=== PATIENT | male | born 1965 | race Two or more races ===

== ENCOUNTER 2024-09-30 14:00 | Emergency (ER) | payer MEDICAID, SELFPAY ==
[2024-09-30 14:28] VITALS: BP 116/79; PULSE 88; RESP 18; TEMP 36.8; O2SAT 100
--- NOTE | 2024-09-30 15:35 | PD.EDRME ---
Rapid Medical Screening Exam [facility] Arrival date/time: 09/30/24 14:00 Chief Complaint: Ankle/Foot Injury Vital signs: Vital Signs Temperature 98.2 F 09/30/24 14:28 Pulse Rate 88 09/30/24 14:28 Respiratory Rate 18 09/30/24 14:28 Blood Pressure 116/79 09/30/24 14:28 Pulse Oximetry (%) 100 09/30/24 14:28 Oxygen Delivery Method Room Air 09/30/24 14:28 RME Narrative: 58-year-old male patient presents emergency department with complaint of bilateral lower leg pain. Patient also states that he started having unintended weight loss a month ago he states he is lost about 6 pounds in the last month. Patient has a history of 15 years diabetes history and is currently on insulin. Last hemoglobin A1c was about 11. He denies checking his blood sugar daily. Patient is ill-appearing but afebrile and nontoxic-appearing. On physical exam there is moderate swelling to patient's right medial knee compared to the left. Patient ambulates with cane.
--- NOTE | 2024-09-30 15:40 | XR_ITS ---
Examination: Knee, 9 right , 3 views Technique: Knee AP, lateral, oblique 3 views Date and time of exam: September 30, 2024 1608 hrs. Indications: Right knee pain this week Findings: Mild osteopenia Advanced narrowing medial joint space right knee Significant osteoarthritis patellofemoral joint No fracture Impression: Advanced narrowing medial joint space right knee Significant osteoarthritis patellofemoral joint
[2024-09-30] MEDS: KETOROLAC INJ 60 MG/2 ML VIAL 30 MG IM (16:02)
[2024-09-30 16:06] LABS: Lactate (Lactic Acid) 1.3 mMol/L (0.4-2.0)
[2024-09-30 16:13] LABS: Basophils % (Auto) 0 % (0-2.5); Eosinophils % (Auto) 0 % (0-10); Hematocrit 36.8 % (41.0-53.0); Hemoglobin 13.9 g/dL (13.5-16.0); Immature Granulocytes % (Auto) 0 % (0-0); Immature Granulocytes Auto 0.02 Thou/mm3 (0.00-0.00); Lymphocytes # (Auto) 1.2 Thou/mm3 (1.0-4.8); Lymphocytes % (Auto) 12 % (10-50); Mean Corpuscular HGB Conc 37.8 g/dl (31.0-37.0); Mean Corpuscular Hemoglobin 29.8 pg (25.0-35.0); Mean Corpuscular Volume 79 fL (80-100); Monocytes # (Auto) 0.4 Thou/mm3 (0.0-0.8); Monocytes % (Auto) 4 % (0-12); Neutrophils # (Auto) 8.3 Thou/mm3 (1.8-7.7); Neutrophils % (Auto) 84 % (37-80); Nucleated Red Blood Cell % 0 /100 WBC (0); Platelet Count 339 Thou/mm3 (140-440); RDW Standard Deviation 35.9 fL (35.1-43.9); Red Blood Count 4.67 Miln/mm3 (4.50-5.90)
[2024-09-30 16:36] LABS: Alanine Aminotransferase 15 U/L (10-49); Albumin, Serum 4.6 gm/dL (3.5-5.0); Albumin/Globulin Ratio 1.8 (1.2-2.2); Alkaline Phosphatase 59 U/L (46-116); Anion Gap 7 (7-16); Aspartate Amino Transferase 10 U/L (0-34); BUN/Creatinine Ratio 29 Ratio (12-20); Bilirubin,Total 1.4 mg/dL (0.3-1.2); Blood Urea Nitrogen 20 mg/dL (9-23); Calcium 9.5 mg/dL (8.3-10.6); Calcium (Corrected) 9.5 mg/dL (8.5-10.1); Chloride 91 mMol/L (98-107); Creatinine (Component) 0.7 mg/dL (0.6-1.3); Globulin 2.6 gm/dL (2.3-3.5); Glucose 199 mg/dL (74-106); Osmolality,Calculated 261 (275-295); Potassium 4.6 mMol/L (3.4-5.1); Sodium 126 mMol/L (136-145); Total Protein 7.2 gm/dL (5.7-8.2); eGFR > 60 See Note
[2024-09-30 16:58] LABS: Sed Rate (ESR) 3 mm/hr (0-20)
[2024-09-30] MEDS: MORPHINE SULF INJ 10 MG/ML VIAL 4 MG IM (17:25)
--- NOTE | 2024-09-30 19:26 | XR_ITS ---
Examination: CT abdomen with intravenous contrast CT pelvis with intravenous contrast 2-D coronal reconstructions 2-D sagittal reconstructions Date and time of exam:September 30, 2024 2051 hrs. Indications: Right-sided abdominal pain beginning 2 days ago Comparison: August 08, 2015. CTDI: vol (mGy) 4.8 DLP: (mGycm) 263 Technique: Multiple axial sections of the abdomen and pelvis have been obtained. 64 slice high-resolution scanner used. 3 mm axial sections have been obtained, post intravenous injection 60 cc Isovue-370 2-D sagittal, coronal reconstructions obtained. Low dose protocols were performed. One or more of the following dose reduction techniques were used; automated exposure control, adjustment of the mA and/or KV according to patient size, use of iterative reconstruction technique. Findings: Small liver cysts No gallstones No pancreatic splenic or adrenal mass No hydronephrosis renal or ureteral calculi Large amounts of stool in the colon No pericecal inflammatory change No bowel obstruction or diverticulitis Intact urinary bladder Transverse prostate dimension 5 cm Prominent osteopenia Grade 1 spondylolisthesis L5 on S1 with advanced degenerative disc disease L5-S1 Impression: Large amounts of stool throughout the colon, no obstruction No CT findings of appendicitis or diverticulitis
--- NOTE | 2024-09-30 19:28 | EDNOTE_ITS ---
Lower Extremity Injury RME/HPI General Chief Complaint: Ankle/Foot Injury Stated Complaint: RIGHT FOOT PAIN FROM DIABETIC WOUND Time Seen by Provider: 09/30/24 20:10 Source: patient Arrival date/time: 09/30/24 14:00 Mode of arrival: ambulatory Limitations: no limitations RME / HPI RME / HPI Narrative: --- DR. ZULUAGA MAIN ED EVALUATION: 58-year-old male patient presents to the emergency department with complaint of bilateral lower leg pain. Patient also states he started having unintended weight loss about a month ago--he notes he has lost about 6 pounds in the last month. Patient reports 15 years of diabetic history and is currently on insulin. Last hemoglobin A1C was about 11. He denies checking his blood sugar daily. Patient ambulates with cane. Related Data Previous Rx's ?Medication ?Instructions ?Recorded megestrol 800 mg/20 mL (20 mL) 800 mg (20 mL) PO QDAY 30 days 09/30/24 oral suspension #600 mL Allergies Allergy/AdvReac Type Severity Reaction Status Date / Time No Known Allergies Allergy Verified 09/30/24 14:02 Review of Systems Review of Systems Systems Reviewed: All systems reviewed, normal except as documented Past Medical History Past Medical History CARDIAC: Negative Cardiac Disorders RESPIRATORY: Negative Asthma GENITOURINARY: Negative Renal Disease ENDOCRINE: Positive Diabetes Mellitus Type 2 HEMATOLOGIC: Negative Sickle Cell Disease Social History SMOKING STATUS: Light (< 1 pack/day) ED Exam Narrative Physical exam: Patient is ill-appearing but afebrile and nontoxic-appearing. There is moderate swelling to patient's right medial knee compared to the left. Patient ambulates with cane. General Limitations: Present no limitations General appearance: Present alert Head Head exam: Present atraumatic Eye Eye exam: Present normal appearance and EOMI; Absent scleral icterus ENT ENT exam: Present normal exam, normal oropharynx and mucous membranes dry Neck Neck exam: Present normal inspection, full ROM and trachea midline Chest Chest inspection: Present normal inspection and symmetric chest wall rise Respiratory Respiratory exam: Present normal lung sounds bilaterally Cardiovascular Cardiovascular exam: Present regular rate, normal rhythm and normal heart sounds Abdominal Exam Abdominal exam: Present soft, normal bowel sounds and other (Scaphoid); Absent distention, tenderness or guarding Extremities Exam Extremities exam: Present normal inspection and full ROM Back Exam Back exam: Present normal inspection and full ROM Neurological Exam Neurological exam: Present alert, oriented X3 and CN II-XII intact Psychiatric Psychiatric exam: Present normal affect and normal mood Skin Skin exam: Present warm, dry, intact and normal color Course Course Course Narrative: Please increase in room to get IV for CT scan Quality Measures none Orders Category Date Time Status CT Screening NOW Care 09/30/24 19:[address] abdomen pelvis w con Stat Exams 09/30/24 19:26 Completed XR knee RT 3V Stat Exams 09/30/24 15:40 Completed Blood Culture (Lab) Stat Lab 09/30/24 15:59 Received CBC [CBC] Stat Lab 09/30/24 15:52 Completed CMP [Comprehensive Metabolic Panel] Stat Lab 09/30/24 15:52 Completed Free T4 (Free Thyroxine) Stat Lab 09/30/24 15:52 Completed Lactic Acid [Lactate (Lactic Acid)] Stat Lab 09/30/24 15:59 Completed Sed Rate (ESR) Stat Lab 09/30/24 15:52 Completed Thyroid Stimulating Hormone Stat Lab 09/30/24 15:52 Completed Urinalysis Stat Lab 09/30/24 19:50 Completed Ketorolac Inj [Toradol Inj] Med 09/30/24 15:38 Discontinued 30 mg IM X1 ONE Morphine Inj Med 09/30/24 15:38 Discontinued 4 mg IM X1 ONE Reevaluation(s) Reevaluation #1: Systolic blood pressure normal Vital Signs Vital signs: Vital Signs Temperature 98.2 F 09/30/24 14:28 Pulse Rate 88 09/30/24 14:28 Respiratory Rate 18 09/30/24 14:28 Blood Pressure 116/79 09/30/24 14:28 Pulse Oximetry (%) 100 09/30/24 14:28 Oxygen Delivery Method Room Air 09/30/24 14:28 Extremity Injury, Lower MDM Narrative MDM Narrative:: ? Scribe Attestation: Tera Ocampo, am scribing for and in the presence of Dr. Villalobos. Patient with obvious weight loss without CT scan showing mass or reason for weight loss. X-ray is consistent with osteoarthritis which is old. Patient will be started on Megace to help with his appetite. [facility] Provider Notation: Although this document has been carefully reviewed, there may still be some phonetic and other typographical errors. These errors are purely grammatical due to imperfections in the software program and should not be construed in any way to compromise the substance of the patient's medical care during this visit. Patient data External records reviewed:: [facility] previous records Clinical information provided by:: patient Social determinants that could affect healthcare access:: none Patient has the following chronic illnesses:: DM2 How is presenting disease/condition affected by chronic disease/condition?: exacerbated by (Diabetes) Evaluation data The following diagnostics were reviewed and interpreted by me:: lab results and radiology exam(s) Lab and/or radiology exams considered but not ordered:: White count is 10 Interpretation Summary: No anemia, thrombocytopenia, or leukocytosis, sodium is slightly decreased at 126 which likely is from slightly elevated glucose. Normal lactic acid essentially normal T4. Examination: Knee, 9 right , 3 views Technique: Knee AP, lateral, oblique 3 views Date and time of exam: September 30, 2024 1608 hrs. Indications: Right knee pain this week Findings: Mild osteopenia Advanced narrowing medial joint space right knee Significant osteoarthritis patellofemoral joint No fracture Impression: Advanced narrowing medial joint space right knee Significant osteoarthritis patellofemoral joint Examination: CT abdomen with intravenous contrast CT pelvis with intravenous contrast 2-D coronal reconstructions 2-D sagittal reconstructions Date and time of exam:September 30, 2024 2051 hrs. Indications: Right-sided abdominal pain beginning 2 days ago Comparison: August 08, 2015. Findings: Small liver cysts No gallstones No pancreatic splenic or adrenal mass No hydronephrosis renal or ureteral calculi Large amounts of stool in the colon No pericecal inflammatory change No bowel obstruction or diverticulitis Intact urinary bladder Transverse prostate dimension 5 cm Prominent osteopenia Grade 1 spondylolisthesis L5 on S1 with advanced degenerative disc disease L5-S1 Impression: Large amounts of stool throughout the colon, no obstruction No CT findings of appendicitis or diverticulitis Dictated By: Pravin Bennett MD Medications / Prescriptions Medications or Prescriptions considered but not ordered:: none Medication administrations:: Medication Administration History Discontinued Medications Ketorolac Tromethamine (Ketorolac Inj 60 Mg/2 Ml Vial) 30 mg IM X1 ONE Stop: 09/30/24 15:39 Last Admin: 09/30/24 16:02 Dose: 30 mg Documented By: OA Morphine Sulfate (Morphine Sulf Inj 10 Mg/Ml Vial) 4 mg IM X1 ONE Stop: 09/30/24 15:39 Last Admin: 09/30/24 17:25 Dose: 4 mg Documented By: RD as above, if any Consultations Consultation(s) initiated? (list below): No Diagnosis Extremity Injury, Lower Differential Diagnosis: acute internal derangement of knee and other (Gout, doubt septic joint, cancer, electrolyte abnormality, dehydration) Most likely diagnosis given after review of the tests above:: Osteoarthritis, Recent weight loss Admission Indicated Admission indicated?: not indicated Admission Request Was there a request for admission?: No Disposition Plan Disposition Plan: Discharge Discharge Attestation Discharge Attestation: The patient and all family members were given an opportunity to ask questions and understood the discharge instructions. Discharge instructions specifically effects, indications for sooner follow up or return to the emergency department, and the expected course of current diagnosis. Patient condition: Stable Discharge Plan Plan Patient Disposition: HOME (Self Care) Patient condition on transfer: Stable Prescriptions/Referrals Prescriptions/Med Rec: New megestrol 800 mg/20 mL (20 mL) suspension 800 mg PO QDAY 30 Days Qty: 600 1RF Referrals: Didi Atwood [Primary Care Provider] - In 1 week Problem List Clinical Impression: Osteoarthritis, Recent weight loss Patient/Caregiver Discharge Instructions Education Materials: ED Osteoarthritis Additional Instructions: Please take the Megace to help you with your appetite. Return to the emergency department for any worsening symptoms or any other concerns. Today your CT scan does not show that you have cancer and or a mass or anything that explains your weight loss. Was a pleasure meeting you today. Return to emergency department for worsening symptoms or any other concerns Print Language: [place] Stand Alone Forms: [employer] Patient Portal Info Letter
[2024-09-30 19:52] LABS: Free T4 (Free Thyroxine) 1.86 ng/dL (0.89-1.76); Thyroid Stimulating Hormone 2.02 uIU/mL (0.55-4.78)
[2024-09-30 20:03] LABS: Collection Type, Urine Voided; Squamous Epithelial Cell,Urine 0 /hpf (0-5)
[2024-09-30 20:10] LABS: Bilirubin,Urine Negative (Negative); Blood,Urine Negative (Negative); Clarity,Urine Clear (Clear/Hazy); Color,Urine Yellow (Lt Yel-Yel); Glucose, Urine 3+ (Negative); Ketones,Urine Trace (Negative); Leukocyte Esterase,Urine Negative (Negative); Nitrite,Urine Negative (Negative); PH,Urine 6.5 (5.0-7.0); Protein,Urine Negative (Neg - Trace); RBC,Urine < 1 /hpf (0-3); Specific Gravity,Urine 1.022 (1.001-1.035); Urobilinogen,Urine Negative mg/dL (0.0-1.0); WBC,Urine < 1 /hpf (0-5)
== END 2024-09-30 23:27 | disposition home or self-care (01) ==
PROVIDERS: Physician Assistant; Emergency Provider Emergency Medicine; PCP Physician Assistant
DX: M17.11 Unilateral primary osteoarthritis, right knee (principal); E11.9 Type 2 diabetes mellitus without complications
CPT/HCPCS: 36415; 73562; 74177; 80053; 81001; 83605; 84439; 84443; 85025; 85652; 87040; 96372; 99285; A4649; J1885; J2270; Q9967

== ENCOUNTER 2024-10-18 22:05 | Inpatient (IN) | payer MEDICAID, SELFPAY ==
--- NOTE | 2024-10-18 22:34 | XR_ITS ---
Examination: CTA carotids with intravenous contrast CTA brain, head with intravenous contrast. 2-D sagittal, coronal reconstructions. 3-D reconstructions. Exam date and time: October 18, 2024 1049 hrs. Indications: Stroke alert, onset right-sided body weakness beginning 6 hours ago CTDI: vol (mGy) 19.58 DLP: (mGycm) 503 Technique: Multiple CTA axial brain, head carotid images post intravenous contrast injection 75 cc, Isovue-370. 2-D sagittal, coronal reconstructions. 3-D reconstructions, 3-D post processing including vascular maximum intensity projection images. Low dose protocols were performed. One or more of the following dose reduction techniques were used; automated exposure control, adjustment of the mA and/or KV according to patient size, use of iterative reconstruction technique. 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
--- NOTE | 2024-10-18 22:34 | XR_ITS ---
Examination: CT brain head without contrast. 2-D sagittal coronal reconstructions Date and time of exam:October 18, 2024 1042 hrs. Indications: Stroke alert, onset right-sided body weakness dizziness beginning 6 hours ago CTDI: vol (mGy):49.20 DLP: (mGycm):1051 Technique: Multiple CT axial sections of the brain have been obtained, 5 mm slice thickness. Contrast has not been administered. 2-D sagittal, coronal reconstructions have been obtained Low dose protocols were performed. One or more of the following dose reduction techniques were used; automated exposure control, adjustment of the mA and/or KV according to patient size, use of iterative reconstruction technique. Findings: No significant ventricular enlargement. Intra-axial or extra-axial hemorrhage density is not seen. No mass effect or midline shift Basal cisterns are not remarkable. Fourth ventricle is midline. Cranial vault intact. Impression: Negative for acute hemorrhage, mass effect or midline shift As clinically warranted, brain MRI follow-up would best assess for demyelinating disease, acute ischemic change
--- NOTE | 2024-10-18 22:35 | PD.EDRME ---
Rapid Medical Screening Exam RME Arrival date/time: 10/18/24 22:05 58-year-old male with a history of hypertension presents to the emergency room with a chief complaint of slurred speech, right sided numbness and deficits, right-sided facial droop that began today at 3 PM. I have greeted and performed a focused initial assessment of this patient. A comprehensive ED assessment and evaluation of the patient, analysis of all test results, and completion of the medical decision making process will be conducted by additional ED providers. Chief Complaint: Dizziness Vital signs reviewed by provider: Yes
--- NOTE | 2024-10-18 22:37 | PC.NURSE ---
stroke consult Case # [id number]
--- NOTE | 2024-10-18 22:38 | EDNOTE_ITS ---
ED Dizzyness RME/HPI General Chief Complaint: Dizziness Stated Complaint: Weakness/dizzyness Time Seen by Provider: 10/18/24 22:38 Arrival date/time: 10/18/24 22:05 Limitations: no limitations RME / HPI RME / HPI Narrative: 10/18/24 22:05 58-year-old male with a history of hypertension presents to the emergency room with a chief complaint of slurred speech, right sided numbness and deficits, right-sided facial droop that began today at 3 PM. I have greeted and performed a focused initial assessment of this patient. A comprehensive ED assessment and evaluation of the patient, analysis of all test results, and completion of the medical decision making process will be conducted by additional ED providers. ------ Dr. Bustillos's Main ED Evaluation: 58-year-old male with history of type 2 diabetes and 6 pound weight loss presenting to the emergency department with slurred speech and dizziness that started at 3 PM. The patient has chronic osteoarthritis of the right knee and has been having generalized weakness in his right lower extremity for the last year and a half. The states that last normal was 3 PM. No weakness in the right lower extremity is not any different than previous. Related Data Previous Rx's ?Medication ?Instructions ?Recorded megestrol 800 mg/20 mL (20 mL) 800 mg (20 mL) PO QDAY 30 days 09/30/24 oral suspension #600 mL Allergies Allergy/AdvReac Type Severity Reaction Status Date / Time No Known Allergies Allergy Verified 09/30/24 14:02 Review of Systems Review of Systems Systems Reviewed: All systems reviewed, normal except as documented Past Medical History Past Medical History CARDIAC: Negative Cardiac Disorders RESPIRATORY: Negative Asthma GENITOURINARY: Negative Renal Disease ENDOCRINE: Positive Diabetes Mellitus Type 2 HEMATOLOGIC: Negative Sickle Cell Disease Social History SMOKING STATUS: Former smoker ED Exam General Limitations: Present no limitations General appearance: Present alert and in no apparent distress Head Head exam: Present atraumatic Eye Eye exam: Present normal appearance, PERRL and EOMI ENT ENT exam: Present normal exam, normal oropharynx and mucous membranes moist Neck Neck exam: Present normal inspection, full ROM and trachea midline Chest Chest inspection: Present normal inspection and symmetric chest wall rise Respiratory Respiratory exam: Present normal lung sounds bilaterally Cardiovascular Cardiovascular exam: Present regular rate, normal rhythm and normal heart sounds Abdominal Exam Abdominal exam: Present soft and normal bowel sounds Extremities Exam Extremities exam: Present normal inspection and full ROM Back Exam Back exam: Present normal inspection and full ROM Neurological Exam Neurological exam: Present alert, oriented X3 and CN II-XII intact Psychiatric Psychiatric exam: Present normal affect and normal mood Skin Skin exam: Present warm, dry, intact and normal color Course Course Course Narrative: Telemetry neuro specialist at the bedside. At this time he does not feel the patient is having a stroke. Reports head CT is negative for acute bleed and/or acute finding. Fingerstick here in the emergency department is 232. Blood pressure 155/73 with a heart rate of 84. Quality Measures none Orders Category Date Time Status Bedside Blood Glucose NOW Care 10/18/24 22:34 Active Statistical Reporting Analyst NOW Care 10/18/24 22:34 Active Continuous Pulse Oximetry NOW Care 10/18/24 22:34 Completed EKG (ED ONLY) *Do not use* NOW Care 10/18/24 22:34 Completed Insert IV NOW Care 10/18/24 22:34 Active NIH Stroke Scale now Care 10/18/24 22:34 Active NPO NOW Care 10/18/24 22:34 Active Nurse Swallow Screen x1 Care 10/18/24 22:34 Active Consult to Neurology / Tele-Neurology Routine Cons 10/18/24 22:[address] angio stroke protocol Stat Exams 10/18/24 22:[address] stroke protocol Stat Exams 10/18/24 22:34 Completed EKG (ED Only) Stat Exams 10/18/24 22:34 Ordered CBC Stat Lab 10/18/24 22:39 Completed Comprehensive Metabolic Panel Stat Lab 10/18/24 22:39 Completed Drug Screen,Urine Stat Lab 10/19/24 00:04 Completed Magnesium Stat Lab 10/18/24 22:39 Completed Partial Thromboplastin Time Stat Lab 10/18/24 22:39 Completed Prothrombin Time with INR Stat Lab 10/18/24 22:39 Completed Troponin I Stat Lab 10/18/24 22:39 Completed Urinalysis Stat Lab 10/19/24 00:04 Completed Urine Culture Stat Lab 10/19/24 00:04 Received Sodium Chloride 0.9% 500 ml [Ns] 500 ml Med 10/19/24 00:05 Discontinued IV 999 mls/hr Vital Signs Vital signs: Vital Signs Temperature 98 F 10/18/24 22:43 Pulse Rate 99 10/18/24 22:43 Respiratory Rate 18 10/18/24 22:43 Blood Pressure 93/58 L 10/18/24 22:43 Pulse Oximetry (%) 99 10/18/24 22:43 Oxygen Delivery Method Room Air 10/18/24 22:43 Pulse ox is 99% on room air, which is normal according to my interpretation. Dizziness MDM Narrative MDM Narrative:: Differential diagnosis includes TIA, stroke, mass, electrolyte abnormality, exacerbation of his diabetes, occult bacteremia,. Patient data External records reviewed:: [facility] previous records (Per chart review, patient has no relevant previous ED visits.) Clinical information provided by:: patient Social determinants that could affect healthcare access:: none Patient has the following chronic illnesses:: DM How is presenting disease/condition affected by chronic disease/condition?: uneffected by Evaluation data The following diagnostics were reviewed and interpreted by me:: lab results and radiology exam(s) Lab and/or radiology exams considered but not ordered:: none Interpretation Summary: CBC is normal, Sodium is low at 118, Chloride is low at 88, troponin is within normal limits, UA is concentrated, according to my interpretation. ------ [facility] Report Signed Patient: TITI FOX Record#: [id number] Birthdate: 1965 Age/Sex: 58 / M Location: [facility] Attending Dr: Ordering Physician: Ben Antonio Date of Service: 10/18/24 Procedure(s): CT stroke protocol Accession Number(s): [id number] cc: Ben Antonio; Pravin Bennett MD~ Examination: CT brain head without contrast. 2-D sagittal coronal reconstructions Date and time of exam:October 18, 2024 1042 hrs. Indications: Stroke alert, onset right-sided body weakness dizziness beginning 6 hours ago CTDI: vol (mGy):49.20 DLP: (mGycm):1051 Technique: Multiple CT axial sections of the brain have been obtained, 5 mm slice thickness. Contrast has not been administered. 2-D sagittal, coronal reconstructions have been obtained Low dose protocols were performed. One or more of the following dose reduction techniques were used; automated exposure control, adjustment of the mA and/or KV according to patient size, use of iterative reconstruction technique. Findings: No significant ventricular enlargement. Intra-axial or extra-axial hemorrhage density is not seen. No mass effect or midline shift Basal cisterns are not remarkable. Fourth ventricle is midline. Cranial vault intact. Impression: Negative for acute hemorrhage, mass effect or midline shift As clinically warranted, brain MRI follow-up would best assess for demyelinating disease, acute ischemic change Dictated By: Pravin Bennett MD Signed By: <Electronically signed by Pravin Bennett MD in OV> 10/18/24 2249 ------ [facility] Report Signed Patient: TITI FOX Record#: [id number] Birthdate: 1965 Age/Sex: 58 / M Location: [facility] Attending Dr: Ordering Physician: Ben Antonio Date of Service: 10/18/24 Procedure(s): CT angio stroke protocol Accession Number(s): [id number] cc: Ben Antonio; Pravin Bennett MD~ Examination: CTA carotids with intravenous contrast CTA brain, head with intravenous contrast. 2-D sagittal, coronal reconstructions. 3-D reconstructions. Exam date and time: October 18, 2024 1049 hrs. Indications: Stroke alert, onset right-sided body weakness beginning 6 hours ago CTDI: vol (mGy) 19.58 DLP: (mGycm) 503 Technique: Multiple CTA axial brain, head carotid images post intravenous contrast injection 75 cc, [id number]. 2-D sagittal, coronal reconstructions. 3-D reconstructions, 3-D post processing including vascular maximum intensity projection images. Low dose protocols were performed. One or more of the following dose reduction techniques were used; automated exposure control, adjustment of the mA and/or KV according to patient size, use of iterative reconstruction technique. 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 Dictated By: Pravin Bennett MD Signed By: <Electronically signed by Pravin Bennett MD in OV> 10/18/24 3883 Medications / Prescriptions Medications or Prescriptions considered but not ordered:: none Medication administrations:: Medication Administration History Acetaminophen (Acetaminophen 325 Mg Tablet) 650 mg PO Q6H PRN PRN Reason: Fever >100.3 or pain Stop: 11/18/24 02:20 Hydrocodone Bitart/Acetaminophen (Hydrocodone/Apap 5/325 Tablet) 1 tab PO Q4HR PRN PRN Reason: PAIN SCALE 4-10(Mod-Sev Stop: 10/24/24 02:20 Albuterol/Ipratropium (Albuterol/Ipratropium (Duoneb) Rt Noemi 3 Ml Nebu) 3 ml INH Q2HR PRN PRN Reason: SHORTNESS OF BREATH OR WHEEZE Stop: 11/18/24 02:20 Dextrose (Dextrose 50%-Water Inj 50 Ml Syringe) 50 ml IV Q15MIN PRN PRN Reason: BG <50 OR BG <70 & pt unresponsive Stop: 11/18/24 02:28 Glucagon (Glucagon Inj 1 Mg Vial) 1 mg IM Q15MIN PRN PRN Reason: BG <70, and no IV access Heparin Sodium (Porcine) (Heparin Sod Inj 5000 Unit/Ml Vial) 5,000 unit SC BID MEDINA Stop: 11/02/24 02:29 Insulin Human Lispro (Insulin Lispro (Admelog) 1 Unit/0.01 Ml Unit) 0 unit SC ACHS MEDINA; Protocol Stop: 11/18/24 07:29 Ondansetron HCl (Ondansetron Inj 2 Mg/Ml Inj 2 Ml) 4 mg IV Q6H PRN; Protocol PRN Reason: NAUSEA OR VOMITING Stop: 11/18/24 02:20 Discontinued Medications Sodium Chloride (Ns) 500 mls @ 999 mls/hr IV .Q31M ONE Stop: 10/19/24 00:35 Last Infusion: 10/19/24 00:52 Dose: Infused Documented By: Admin: 10/19/24 00:21 Dose: 999 mls/hr Documented By: EF see above Consultations Consultation(s) initiated? (list below): Yes Consultation #1 (Physician, Specialty, Details): Discussed case with [Dr. Yepez] from [teleneurology] regarding [consultation]. Discussed patients ED course, exam findings, labs, and radiology results. Does not feel the patient is having a stroke at this time and does not recommend tPA. He does not recommend any further stroke work-up. Time: 23:10 Consultation #2 (Physician, Specialty, Details): Discussed case with [Dr. Buchanan] from Hospitalist service regarding admission. Discussed patients ED course, exam findings, labs, and radiology results. The Hospitalist [agrees] to accept the patient for admission. Time: 01:50 Diagnosis Dizziness Differential Diagnosis: cerebrovascular accident and other (TIA, mass, electrolyte abnormality, exacerbation of DM, occult bacteremia) Most likely diagnosis given after review of the tests above:: see below Admission Indicated Admission indicated?: indicated Admission Request Was there a request for admission?: Yes Admission Attestation Admission request attestation: Discussed case with [] from Hospitalist service regarding admission. Discussed patients ED course, exam findings, labs, and radiology results. The Hospitalist [agrees,declines] to accept the patient for admission. Disposition Plan Disposition Plan: Admit Critical Care Time Critical Care Time Critical Care Time: Yes Total Critical Care Time (min.): 45 Attestation: The high probability of sudden, clinically significant deterioration in the patient?s condition required the highest level of my preparedness to intervene urgently. The services I provided to this patient were to treat and/or prevent clinically significant deterioration. Services included the following: chart data review, reviewing nursing notes and/or old charts, documentation time, virtualization consultant collaboration regarding findings and treatment options, medication orders and management, direct patient care, vital sign assessments and ordering, interpreting and reviewing diagnostic studies and lab tests. Aggregate critical care time includes only time during which I was engaged in work directly related to the patient?s care, as described above, whether at bedside or elsewhere in the Emergency Department. It did not include time spent performing other reported procedures or the services of residents, students, nurses or physician assistants. Discharge Plan Plan Patient Disposition: Admit Acute Care w/in Hospital Patient condition on transfer: Stable Problem List Clinical Impression: Acute hyponatremia, Dizziness, History of diabetes mellitus
[2024-10-18 22:43] VITALS: BP 93/58; PULSE 99; RESP 18; TEMP 36.6; O2SAT 99
[2024-10-18 23:01] LABS: Basophils % (Auto) 0 % (0-2.5); Eosinophils # (Auto) 0.1 Thou/mm3 (0.0-0.5); Eosinophils % (Auto) 1 % (0-10); Hematocrit 34.2 % (41.0-53.0); Hemoglobin 13.3 g/dL (13.5-16.0); Immature Granulocytes % (Auto) 0 % (0-0); Immature Granulocytes Auto 0.01 Thou/mm3 (0.00-0.00); Lymphocytes % (Auto) 26 % (10-50); Mean Corpuscular HGB Conc 38.9 g/dl (31.0-37.0); Mean Corpuscular Hemoglobin 29.8 pg (25.0-35.0); Mean Corpuscular Volume 77 fL (80-100); Monocytes # (Auto) 0.6 Thou/mm3 (0.0-0.8); Monocytes % (Auto) 7 % (0-12); Neutrophils % (Auto) 65 % (37-80); Nucleated Red Blood Cell % 0 /100 WBC (0); Platelet Count 322 Thou/mm3 (140-440); RDW Standard Deviation 34.7 fL (35.1-43.9); Red Blood Count 4.47 Miln/mm3 (4.50-5.90); White Blood Count 7.7 Thou/mm3 (3.8-10.6)
[2024-10-18 23:15] VITALS: PULSE 80
[2024-10-18 23:20] LABS: Partial Thromboplastin Time 27.7 Seconds (22.0-36.0); Prothrombin Time 11.1 Seconds (9.0-12.2)
[2024-10-18 23:24] VITALS: BMI 19.2
[2024-10-18 23:26] LABS: Alanine Aminotransferase 26 U/L (10-49); Albumin, Serum 4.4 gm/dL (3.5-5.0); Albumin/Globulin Ratio 1.8 (1.2-2.2); Alkaline Phosphatase 60 U/L (46-116); Anion Gap 7 (7-16); Aspartate Amino Transferase 16 U/L (0-34); BUN/Creatinine Ratio 20 Ratio (12-20); Bilirubin,Total 1.7 mg/dL (0.3-1.2); Blood Urea Nitrogen 16 mg/dL (9-23); Calcium 9.3 mg/dL (8.3-10.6); Calcium (Corrected) 9.3 mg/dL (8.5-10.1); Carbon Dioxide 23.1 mMol/L (20.0-31.0); Chloride 88 mMol/L (98-107); Creatinine (Component) 0.8 mg/dL (0.6-1.3); Estimated Creatinine Clearance 77.9 mL/min (>60); Globulin 2.4 gm/dL (2.3-3.5); Glucose 211 mg/dL (74-106); Osmolality,Calculated 245 (275-295); Potassium 4.4 mMol/L (3.4-5.1); Total Protein 6.8 gm/dL (5.7-8.2); eGFR > 60 See Note
--- NOTE | 2024-10-18 23:26 | PD.NEUROCONS ---
History of Present Illness Consult Narrative History of present illness: 58yo man with past medical history significant for poorly controlled DM2, HTN, and diabetic neuropathy, who presents today with a few days of lightheadedness that is worse with sitting up or standing, and per , acutely worsened today. Pt denies room spinning sensation and endorses lightheadedness only, and also feels generally weak. He also reports that he has had right leg weakness since July of 2024. cc:: cc: Meds Home Medications and Allergies Allergies Allergy/AdvReac Type Severity Reaction Status Date / Time No Known Allergies Allergy Verified 09/30/24 14:02 Exam - Neurology Vital Signs Temp Pulse Resp BP Pulse Ox O2 Del Method 98 F 80 18 93/58 L 99 Room Air 10/18/24 22:43 10/18/24 23:15 10/18/24 22:43 10/18/24 22:43 10/18/24 22:43 10/18/24 22:43 Narrative Exam Examination: BP(155/73), Pulse(83), Blood Glucose(232) 1A: Level of Consciousness - Alert; keenly responsive + 0 1B: Ask Month and Age - Both Questions Right + 0 1C: Blink Eyes & Squeeze Hands - Performs Both Tasks + 0 2: Test Horizontal Extraocular Movements - Normal + 0 3: Test Visual Nelson - No Visual Loss + 0 4: Test Facial Palsy (Use Grimace if Obtunded) - Normal symmetry + 0 5A: Test Left Arm Motor Drift - No Drift for 10 Seconds + 0 5B: Test Right Arm Motor Drift - No Drift for 10 Seconds + 0 6A: Test Left Leg Motor Drift - No Drift for 5 Seconds + 0 6B: Test Right Leg Motor Drift - Some Effort Against Rainbow + 2 7: Test Limb Ataxia (FNF/Heel-Rao) - No Ataxia + 0 8: Test Sensation - Mild-Moderate Loss: Less Sharp/More Dull + 1 9: Test Language/Aphasia - Normal; No aphasia + 0 10: Test Dysarthria - Normal + 0 11: Test Extinction/Inattention - No abnormality + 0 NIHSS Score: 3 Pre-Morbid Modified Corder Scale: Unable to assess Advanced Imaging: Advanced Imaging Deferred because: Stroke not suspected with clinical presentation and exam Metrics: Last Known Well: Unknown Dispatch Time: 10/18/2024 22:37:09 Arrival Time: 10/18/2024 22:30:00 Initial Response Time: 10/18/2024 22:52:38 Symptoms: dizziness. Initial patient interaction: 10/18/2024 23:05:11 NIHSS Assessment Completed: 10/18/2024 23:14:06 Patient is not a candidate for Thrombolytic. Thrombolytic Medical Decision: 10/18/2024 23:14:08 Patient was not deemed candidate for Thrombolytic because of following reasons: LKW outside 4.5 hr window. . I personally Reviewed the CT Head and it Showed no acute hemorrhage or large evolving infarct. Primary Provider Notified of Diagnostic Impression and Management Plan on: 10/18/2024 23:44:44 Results Labs 10/18/24 22:39 10/18/24 22:39 Assessment & Plan Assessment and plan (1) Dizziness: Status: Acute Assessment and plan: [facility] Patient Name: Horacio Martinez Date of : 1965 Identification Number: Date of Service: 10/18/2024 22:37:09 Diagnosis: ? Presyncope Impression: ? 58M, pmh sig for poorly controlled DM2, HTN, diabetic neuropathy with chronic RLE weakness, presenting with positional presyncope and generalized weakness; no c/f acute stroke at this time. No TNK given LKW>4.5hr. No c/f LVO. Recommendations: ? No further neurodiagnostic stroke work-up indicated Spoke with : Dr. Bustillos This consult was conducted in real time using interactive audio and video technology. Patient was informed of the technology being used for this visit and agreed to proceed. Patient located in hospital and provider located at home/office setting. Patient is being evaluated for possible acute neurologic impairment and high probability of imminent or life-threatening deterioration. I spent total of 45 minutes providing care to this patient, including time for face to face visit via telemedicine, review of medical records, imaging studies and discussion of findings with providers, the patient and/or family. Dr Doyle Yepez [facility] For Inpatient follow-up with [facility] physician please call [facility] at . As we are not an outpatient service for any post hospital discharge needs please contact the hospital for assistance. If you have any questions for the [facility] physicians or need to reconsult for clinical or diagnostic changes please contact us via [facility] at .
[2024-10-18 23:59] LABS: Troponin I < 0.020 ng/mL (0.0-0.045)
[2024-10-19] VITALS (16 sets, daily range): BP systolic 84–153; BP diastolic 50–92; PULSE 74–101; RESP 15–100; TEMP 36.7–37.1; O2SAT 96–100
[2024-10-19] LABS: Sodium 118 mMol/L (136-145)
--- NOTE | 2024-10-19 | XR_ITS ---
Examinations: MRI Brain without intravenous contrast. MRA brain without intravenous contrast. MRA carotids without intravenous contrast 3-D vascular reconstructions Date and time of exam: October 18, 2024 0734 hrs. Indications: Stroke alert October 18, 2024, onset focal neurologic deficit, right-sided body weakness dizziness Technique: Multiple axial and sagittal images of the brain have been obtained MRA brain carotid images without contrast obtained, including 3-D postprocessing, vascular maximum intensity projection images Findings: Sellaturcica is not enlarged. The optic chiasm and infundibular stalk are not remarkable. Prepontine and interpeduncular cisterns are not enlarged. No localized enlargement of the medulla or candie. Fourth ventricle and cerebellar tonsils normal in position. Subacute hemorrhage is not seen. Fourth ventricle is midline. Mass in the cerebellopontine angle region is not evident. 7th and 8th nerve complexes exhibits symmetry. Globes are symmetrical with no retro-orbital mass. Increased white matter signal not seen Diffusion-weighted images demonstrate no focus of restricted diffusion Mass-effect upon the ventricular system is not identified. MRA carotid images no significant carotid stenoses. MRA brain images lack of filling left posterior cerebral artery beginning in the P1 segment Impression: Negative for acute hemorrhage mass effect or midline shift No acute infarct No MR findings diagnostic for demyelinating disease Lack of filling of posterior cerebral artery Recommend repeating this brain MRI MRA without contrast, stroke protocol, short-term, as clinically warranted
[2024-10-19 00:10] LABS: Collection Type, Urine Clean Catch; Squamous Epithelial Cell,Urine 0 /hpf (0-5)
[2024-10-19] MEDS: SODIUM CHLORIDE 0.9% 500 ML 500 ML 999 ML IV (00:21)
[2024-10-19 00:42] LABS: Bilirubin,Urine Negative (Negative); Blood,Urine Negative (Negative); Clarity,Urine Clear (Clear/Hazy); Color,Urine Lt-Yellow (Lt Yel-Yel); Glucose, Urine 3+ (Negative); Ketones,Urine Negative (Negative); Leukocyte Esterase,Urine Negative (Negative); Nitrite,Urine Negative (Negative); Protein,Urine Negative (Neg - Trace); RBC,Urine 2 /hpf (0-3); Urobilinogen,Urine Negative mg/dL (0.0-1.0); WBC,Urine < 1 /hpf (0-5)
[2024-10-19 01:01] LABS: Specific Gravity,Urine 1.035 (1.001-1.035)
[2024-10-19 01:31] LABS: Amphetamine/Methamp Scrn,U Negative (Negative); Barbiturate Screen,Urine Negative (Negative); Benzodiazepines Screen,Urine Negative (Negative); Benzoylecgonine Screen, Ur Negative (Negative); Fentanyl Screen,Urine Negative (Negative); Opiate Screen,Urine Negative (Negative); THC Screen,Urine Positive (Negative)
--- NOTE | 2024-10-19 02:25 | ECHO_ITS ---
Transthoracic Echo Report Ht (in): 66 Wt (lb): 119 Exam Location: ER Status: Inpatient Treating Machine Operator: Josselin Agarwal Indications: Procedure Performed: BP: 137 / 82 HR: 75 Rhythm: Sinus Technical Quality: Technically difficult study Contrast: Agitated Saline Total Dose (mL): MEASUREMENTS (Male / Female) Normal Values 2D ECHO LV Diastolic Diameter PLAX 3.4 cm 4.2 - 5.9 / 3.9 - 5.3 cm LV Systolic Diameter PLAX 2.4 cm IVS Diastolic Thickness 1.0 cm 0.6 - 1.0 / 0.6 - 0.9 cm LVPW Diastolic Thickness 1.1 cm 0.6 - 1.0 / 0.6 - 0.9 cm LV Relative Wall Thickness 0.6 LVOT Diameter 2.0 cm LA Volume Index 16.8 cm?/m? 16 - 28 cm?/m? M-MODE Aortic Root Diameter MM 2.9 cm LA Systolic Diameter MM 3.2 cm LA Ao Ratio MM 1.1 AV Cusp Separation MM 1.9 cm DOPPLER AV Peak Velocity 113.0 cm/s AV Peak Gradient 5.1 mmHg AV Mean Gradient 3.0 mmHg AV Velocity Time Integral 20.8 cm LVOT Peak Velocity 91.7 cm/s LVOT Peak Gradient 3.4 mmHg LVOT Velocity Time Integral 14.5 cm LVOT Cardiac Index 2164.1 cm?/min?m? AV Area Cont Eq vti 2.2 cm? AV Area Cont Eq pk 2.5 cm? MV Peak Velocity 70.3 cm/s MV Peak Gradient 2.0 mmHg MV Mean Velocity 39.8 cm/s MV Mean Gradient 1.0 mmHg MV Area PHT 4.1 cm? Mitral E Point Velocity 62.2 cm/s Mitral A Point Velocity 66.3 cm/s Mitral E to A Ratio 0.9 LV E' Lateral Velocity 7.3 cm/s Mitral E to LV E' Lateral Ratio 8.5 LV E' Septal Velocity 6.1 cm/s Mitral E to LV E' Septal Ratio 10.2 TR Peak Velocity 160.0 cm/s TR Peak Gradient 10.2 mmHg FINDINGS Left Ventricle Normal left ventricular size, wall thickness, systolic function with no obvious regional wall motion abnormalities. The ejection fraction is visually estimated at 55-60%. Right Ventricle The right ventricle is normal in size and systolic function. The estimated right ventricular systoli c pressure, 15mmHg. RAP 5. Left Atrium The left atrium is normal by two-dimensional, color flow and Doppler imaging with no structural abnormalities, no thrombus formation present. Right Atrium The right atrium is normal by two-dimensional imaging, color flow and Doppler imaging with no struct ural abnormalities, no thrombus formation present. Atrial Septum The interatrial septum appears normal with no evidence of a shunt. Aorta The aorta is normal by two-dimensional, color flow and Doppler interrogation. Mitral Valve The mitral valve is normal by two-dimensional, color flow and Doppler interrogation. There is no sig nificant mitral valve regurgitation. Aortic Valve The aortic valve is trileaflet and normal by two-dimensional, color flow and Doppler interrogation. There is no significant aortic valve regurgitation. Tricuspid Valve The tricuspid valve is normal by two-dimensional, color flow and Doppler interrogation. There is mil d tricuspid valve regurgitation. Pulmonic Valve There is no significant pulmonic valve regurgitation. Vessels The pulmonary artery appears normal. The inferior vena cava pulmonary and hepatic veins appear dennis l. Pericardium The pericardium is normal by two-dimensional imaging. There is no significant pericardial effusion. CONCLUSIONS Negative bubble study. No evidence of PFO or ASD. Normal LV size and function. Estimated EF 55-60% Normal RV size and function Mild TR. Ana Mancia (Electronically Signed) Final Date: 21 October 2024 09:14
--- NOTE | 2024-10-19 02:32 | XR_ITS ---
Examination: Right femur 2 views Technique one AP lateral right femur 2 views Exam date and time: October 19, 2024 0313 hours INDICATIONS: Right leg pain 3 months. FINDINGS: Moderate osteopenia. Mild to moderate right hip osteoarthritis. No hip or femoral shaft fracture Moderate tricompartment osteoarthritis at the knee IMPRESSION: Mild to moderate right hip osteoarthritis No femur fracture
--- NOTE | 2024-10-19 02:33 | XR_ITS ---
Examination: Knee, right , 3 views Technique: Knee AP, lateral, oblique 3 views Date and time of exam: October 19, 2024 1502 hours INDICATIONS: Right knee pain beginning 3 months ago. FINDINGS: Advanced tricompartment osteoarthritis Prominent osteopenia No fracture IMPRESSION: Advanced tricompartment osteoarthritis
--- NOTE | 2024-10-19 02:34 | ESHP_ITS ---
Documentation for date of: 10/19/24 HPI History of Present Illness Chief complaint: Dizziness History of present illness: HPI: Patient is Niuean-speaking and interview facilitated by a registered healthcare supplier manager. Patient is a 58-year-old male with past medical history significant for insulin- dependent diabetes mellitus type 2, hyperthyroidism, scoliosis and chronic musculoskeletal pain presented today with a chief complaint of dizziness. Patient stated that when he woke up this morning, as soon as he got out of bed he began to feel extremely dizzy. His dizziness was temporary and subsided on it's own. Whenever he judith down or sits to use the toilet and stands after he feels dizzy. No change with head position. Denies any headache, new onset visual changes, hearing loss, tinnitus, sinusitis, loss of consciousness, loss of sensation. Also according to patient and his he had right femur, knee and leg pain for the past 3 months. Patient states that this pain is constant throughout the day, no radiation and minimal relief upon taking gabapentin and ibuprofen [id number]. Initially patient had a mild limp, this progressed to him using a cane and now patient can barely walk using a walker. Apparently patient went to his PCP who did an x-ray which showed a problem with the cartilage according to him. Patient states that he drinks approximately 1 L of water per day. For the past few months has had about 4 episodes of nocturia per night and 6?8 episodes of urination during the day. His nocturia will keep him up at night and he was recently prescribed trazodone by his PCP for insomnia. Of note patient was scheduled for a thyroid ultrasound tomorrow. He also had unintentional weight loss of about 30 pounds over the past 2 months. His stated that he also had a decreased appetite. ED course: BP 93/58, pulse 99, RR 18, temp 98.9 F, SpO2 100% on room air. Labs significant for Hb 13.3, HCT 34.2, NA 118, OSM 245, CL 88, T. bili 1.7. Urinalysis significant for pH 8, 3+ glucose. U tox significant for marijuana CT brain negative for acute hemorrhage, mass effect or midline shift. Head and neck CTA positive for occlusion left LINUX SYSTEMS ADMINISTRATOR branches P1 and P2 In the ED patient received 1 L normal saline IV fluid bolus. Patient will be admitted for workup and management of stroke rule out, symptomatic hyponatremia and dizziness for investigation. Neurologist, Dr. Vance consulted and is closely following the case. Appreciate recommendations. Review of Systems Review of Systems Narrative Review of Systems: GENERAL: Denies fever/chills or diaphoresis. HEENT: As above Neuro: As above CARDIO: Denies chest pain or palpitations. PULM: Denies SOB, coughing or wheezing. GI: Denies abdominal pain, N/V/C/D. Reports having BMs. URO: Denies burning/itching/pain/urinary changes. DEPENDENCY PROGRAM DIRECTOR: Denies menstrual changes, hot flashes. MSK/EXT/SKIN: Denies joint/skeletal/muscle pain, issues/changes in upper or lower extremities, itchiness, or superficial pain. PSYCH: Cooperative, pleasant mood & affect. The rest of the review of systems is otherwise negative. Past Medical History Past Medical History Comments PMH COMMENT: Past medical history: ? Hyperthyroidism ? Insulin-dependent diabetes mellitus type 2 - Scoliosis - Chronic musculoskeletal pain Medication list: ? Trazodone 50 Mg p.o. at bedtime ? Simvastatin 20 Mg p.o. at bedtime ? Methimazole 5 Mg p.o. daily ? Lisinopril 5 Mg p.o. daily ? Lantus 24 units SC daily ? Meloxicam 7.5 Mg p.o. daily ? 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 Tobacco use: Quit 30 years ago. ETHO use: Quit 15 years ago. Previously drank approximately 12 beers a day Illicit drug use: Denies Social History Note: lives with and 2 kids Family History: No significant family history Exam Vital Signs Temp Pulse Resp BP Pulse Ox O2 Del Method 98.8 F 74 18 134/81 H 100 Room Air 10/19/24 01:16 10/19/24 01:16 10/19/24 01:16 10/19/24 01:16 10/19/24 01:16 10/19/24 01:16 Narrative Exam Constitutional Alert, oriented x 3 and comfortable. Elderly male, bitemporal wasting, thin HEENT Vision grossly intact. Patent nares. Trachea midline Respiratory Chest normal on inspection and clear auscultation bilaterally Cardiovascular S1 and S2 audible, RRR. No murmurs carotid bruit. No gross JVD. Abdominal Soft and non tender to palpation in all quadrants. BS + Genitourinary No bladder tenderness, no flank pain. Normal to palpation Musculoskeletal Extremities tone within normal limits. No LE edema. Skin Warm, dry and intact. No apparent lesions. Psychiatric Patient has good affect, is cooperative Neurological CN II - XII grossly intact. Extremity motor and sensation grossly intact. NIHSS 1A: Level of Consciousness - Requires repeated stimulation to arouse + 0 1B: Ask Month and Age - Could Not Answer Either Question Correctly + 0 1C: Blink Eyes & Squeeze Hands - Performs Both Tasks + 0 2: Test Horizontal Extraocular Movements - Normal + 0 3: Test Visual Nelson - Complete Hemianopia + 0 4: Test Facial Palsy (Use Grimace if Obtunded) - Minor paralysis (flat nasolabial fold, smile asymmetry) + 0 5A: Test Left Arm Motor Drift - No Drift for 10 Seconds + 0 5B: Test Right Arm Motor Drift - No Drift for 10 Seconds + 0 6A: Test Left Leg Motor Drift - No Drift for 5 Seconds + 0 6B: Test Right Leg Motor Drift - No Drift for 5 Seconds + 3 7: Test Limb Ataxia (FNF/Heel-Rao) - No Ataxia + 1 8: Test Sensation - Normal; No sensory loss + 0 9: Test Language/Aphasia - Severe Aphasia: Fragmentary Expression, Inference Needed, Cannot Identify Materials + 0 10: Test Dysarthria - Normal + 0 11: Test Extinction/Inattention - No abnormality + 0 NIHSS Score: 4 Results: Labs 10/19/24 05:00 10/19/24 18:32 Labs: Short CBC 10/18/24 Range/Units 22:39 WBC 7.7 (3.8-10.6) Thou/mm3 Hgb 13.3 L (13.5-16.0) g/dL Hct 34.2 L (41.0-53.0) % Plt Count 322 (140-440) Thou/mm3 BMP 10/18/24 22:39 Sodium 118 L* Potassium 4.4 Chloride 88 L Carbon Dioxide 23.1 BUN 16 Creatinine 0.8 Glucose 211 H Calcium 9.3 Cardiac Enzymes 10/18/24 Range/Units 22:39 Troponin I < 0.020 (0.0-0.045) ng/mL Liver Function 10/18/24 Range/Units 22:39 Total Bilirubin 1.7 H (0.3-1.2) mg/dL AST 16 (0-34) U/L ALT 26 (10-49) U/L Alkaline Phosphatase 60 (46-116) U/L Albumin 4.4 (3.5-5.0) gm/dL Urine 10/19/24 Range/Units 00:04 Urine Color Lt-Yellow (Lt Yel-Yel) Urine Clarity Clear (Clear/Hazy) Urine pH 8.0 H (5.0-7.0) Ur Specific [place] 1.035 (1.001-1.035) Urine Protein Negative (Neg - Trace) Urine Glucose (UA) 3+ A (Negative) Quality Measures Quality Measures none Medications Home Medications and Allergies Allergies Allergy/AdvReac Type Severity Reaction Status Date / Time No Known Allergies Allergy Verified 09/30/24 14:02 Visit Medications Acetaminophen (Acetaminophen 325 Mg Tablet) 650 mg PO Q6H PRN PRN Reason: Fever >100.3 or pain Stop: 11/18/24 02:20 Hydrocodone Bitart/Acetaminophen (Hydrocodone/Apap 5/325 Tablet) 1 tab PO Q4HR PRN PRN Reason: PAIN SCALE 4-10(Mod-Sev Stop: 10/24/24 02:20 Albuterol/Ipratropium (Albuterol/Ipratropium (Duoneb) Rt Noemi 3 Ml Nebu) 3 ml INH Q2HR PRN PRN Reason: SHORTNESS OF BREATH OR WHEEZE Stop: 11/18/24 02:20 Dextrose (Dextrose 50%-Water Inj 50 Ml Syringe) 50 ml IV Q15MIN PRN PRN Reason: BG <50 OR BG <70 & pt unresponsive Stop: 11/18/24 02:28 Glucagon (Glucagon Inj 1 Mg Vial) 1 mg IM Q15MIN PRN PRN Reason: BG <70, and no IV access Heparin Sodium (Porcine) (Heparin Sod Inj 5000 Unit/Ml Vial) 5,000 unit SC BID MEDINA Stop: 11/02/24 02:29 Insulin Human Lispro (Insulin Lispro (Admelog) 1 Unit/0.01 Ml Unit) 0 unit SC ACHS [facility]; Protocol Stop: 11/18/24 07:29 Ondansetron HCl (Ondansetron Inj 2 Mg/Ml Inj 2 Ml) 4 mg IV Q6H PRN; Protocol PRN Reason: NAUSEA OR VOMITING Stop: 11/18/24 02:20 Discontinued Medications Sodium Chloride (Ns) 500 mls @ 999 mls/hr IV .Q31M ONE Stop: 10/19/24 00:35 Last Infusion: 10/19/24 00:52 Dose: Infused Assessment & Plan Plan Patient is a 58-year-old male with past medical history significant for insulin- dependent diabetes mellitus type 2, hyperthyroidism, scoliosis and chronic musculoskeletal pain presented today with a chief complaint of dizziness. Patient will be admitted for workup and management of stroke rule out, symptomatic hyponatremia and dizziness for investigation. 1. Severe, symptomatic hypoosmolar hyponatremia 2. Hypochloremia Patient only drinks 1 L of water per day. For the past few months has Chronic polyuria and nocturia Recently was prescribed trazodone DDx: SIADH, medication side effect, hypovolemia On admission NA 118, OSM 245, CL 88 Estimated urine OSM 1000 Plan: -Hold fluids for now, 500ml bolus given in ED, Na uptrending, last 122 - Discontinued Trazadone as this can cause SIADH ? NA checks Q4 hourly ? Urine electrolytes ordered including NA, K, CL and urine osmolality ? Goal of sodium correction 4 -6 mmol in any 24-hour. With a max of 8 mmol. To avoid osmotic demyelination syndrome ? Nephrology, Dr Vanegas consulted and closely following the case. Appreciate recommendations 3. Stroke rule out Patient presented with symptoms of dizziness NIHSS 4 CT brain negative for acute hemorrhage, mass effect or midline shift. Head and neck CTA positive for occlusion left LINUX SYSTEMS ADMINISTRATOR branches P1 and P2 Plan: - Patient is started on stroke protocol - Neuro checks q 4H - Head of bed elevated to 30 degrees - Swallow eval and bedside swallow screen ordered - PT/OT referrals placed - Seizure precautions in place - Allow permissive HTN. Antihypertensives if BP >220/120, with a goal of reduction in BP during the first 24 hours - HbA1C, Lipid panel, TSH ordered - ECHO with bubble study ordered - Brain MRI without contrast ordered - PRN Acetaminophen 650mg to avoid hyperthermia - PRN Labetaol 10 mg IV Q10 mins for SBP > 220 - DVT Prophylaxis with Heparin 5000 U SC BID - Dr Vance consulted, pending in-house Neurology recommendations 4. Vertigo central versus peripheral Patient endorsed dizziness upon getting up from a supine position. DDx: Orthostatic hypotension, BPPV, M?ni?re's disease, cerebellar stroke, labyrinthitis, otitis media, diabetic neuropathy Plan: ? Orthostatic vitals ? Day team to decide on [place]-Hallpike maneuver to rule out BPPV as warranted ? Meclizine 25 Mg p.o. 3 times daily as needed for dizziness 5. Hyperthyroidism Home medication methimazole 5 Mg p.o. daily Patient was scheduled for a thyroid ultrasound today Plan: ? Resumed home medication methimazole 5 Mg p.o. daily 6. Insulin-dependent diabetes mellitus type 2 Patient's home medication Lantus 24 units SC daily No recent A1c on file but reported as 11 by patient Plan: ? HbA1c ordered ? SSI to cover for any blood glucose spikes 7. Scoliosis 8. Chronic musculoskeletal pain Patient had right femur, knee and leg pain for the past few months which progressed. Currently patient can barely ambulate with the assistance of a walker. Plan: ? Right femur x-ray ordered ? Right knee x-ray ordered Health maintenance: Disposition: MR brain, neuro consult. NA check and correction Diet: NPO Lines: pIVs GI Prophylaxis: NONE Thrombo Prophylaxis: Heparin Code status: FULL CODE Plan of care discussed with Attending Dr. Chanel Greene MD PGY 1 Attending Provider Attestation/Addendum I have discussed and was present for the essential components of the history, physical examination, diagnosis, and treatment plan with the resident. I agree with the patient's care as documented by the resident and amended herein by me. Luis Buchanan DO. Although this document has been carefully reviewed, there may still be some phonetic and other typographical errors. These errors are purely grammatical due to imperfections in the software program and should not be construed in any way to compromise the substance of the patient's medical care during this visit.
[2024-10-19 03:17] LABS: Sodium 122 mMol/L (136-145)
[2024-10-19 03:23] LABS: Chloride,Urine Random 30.5 mMol/L (55.0-125.0); Creatinine,Random Urine 33 mg/dL (30-125); Potassium,Urine Random 32 mMol/L (12-62); Sodium,Urine Random 29.1 mMol/L (20.0-110.0)
[2024-10-19] MEDS: HEPARIN SOD INJ 5000 UNIT/ML VIAL SC ×3 (04:05→21:17)
[2024-10-19 05:28] LABS: Basophils % (Auto) 0 % (0-2.5); Eosinophils # (Auto) 0.1 Thou/mm3 (0.0-0.5); Eosinophils % (Auto) 1 % (0-10); Hematocrit 32.6 % (41.0-53.0); Hemoglobin 12.5 g/dL (13.5-16.0); Immature Granulocytes % (Auto) 0 % (0-0); Immature Granulocytes Auto 0.02 Thou/mm3 (0.00-0.00); Lymphocytes # (Auto) 1.8 Thou/mm3 (1.0-4.8); Lymphocytes % (Auto) 26 % (10-50); Mean Corpuscular HGB Conc 38.3 g/dl (31.0-37.0); Mean Corpuscular Hemoglobin 29.3 pg (25.0-35.0); Mean Corpuscular Volume 77 fL (80-100); Monocytes # (Auto) 0.5 Thou/mm3 (0.0-0.8); Monocytes % (Auto) 7 % (0-12); Neutrophils # (Auto) 4.4 Thou/mm3 (1.8-7.7); Neutrophils % (Auto) 65 % (37-80); Nucleated Red Blood Cell % 0 /100 WBC (0); Platelet Count 295 Thou/mm3 (140-440); RDW Standard Deviation 34.5 fL (35.1-43.9); Red Blood Count 4.26 Miln/mm3 (4.50-5.90); White Blood Count 6.7 Thou/mm3 (3.8-10.6)
[2024-10-19 05:52] LABS: Glucose Estimated Average 166 mg/dL (80-131); Hemoglobin A1C 7.4 % Hgb (4.8-6.0)
[2024-10-19 05:54] LABS: Alanine Aminotransferase 23 U/L (10-49); Albumin, Serum 4.1 gm/dL (3.5-5.0); Albumin/Globulin Ratio 1.8 (1.2-2.2); Alkaline Phosphatase 54 U/L (46-116); Anion Gap 6 (7-16); Aspartate Amino Transferase 13 U/L (0-34); BUN/Creatinine Ratio 20 Ratio (12-20); Bilirubin,Total 1.8 mg/dL (0.3-1.2); Blood Urea Nitrogen 14 mg/dL (9-23); Carbon Dioxide 24.3 mMol/L (20.0-31.0); Chloride 92 mMol/L (98-107); Creatinine (Component) 0.7 mg/dL (0.6-1.3); Free T4 (Free Thyroxine) 1.84 ng/dL (0.89-1.76); Globulin 2.3 gm/dL (2.3-3.5); Glucose 152 mg/dL (74-106); Osmolality,Calculated 249 (275-295); Potassium 4.4 mMol/L (3.4-5.1); Sodium 122 mMol/L (136-145); Thyroid Stimulating Hormone 2.64 uIU/mL (0.55-4.78); Total Protein 6.4 gm/dL (5.7-8.2); eGFR > 60 See Note
[2024-10-19 08:20] LABS: Uric Acid 2.2 mg/dL (3.7-9.2)
--- NOTE | 2024-10-19 08:21 | PC.NURSE ---
Manager Web Application: Reviewed chart and noted CT angio results of occluded DIRECTOR OF SLOT OPERATIONS, P1 and P2 segments. Results do not suggest cause of occlusion. Called MRI to facilitate that exam and patient was already receiving that scan. Tech estimated patient would be done about 0800. Elevated my concern to attending MD, Dr. Hills. Dr Hills's team will speak with our neurologst DESIRAE. I will watch for and facilitate MRI read. Noted patient's LKWT was 1500 yesterday.
--- NOTE | 2024-10-19 08:53 | XR_ITS ---
Examination: Venous duplex lower extremity sonogram, bilateral. Date and time of exam: October 19, 2024 1305 hours INDICATIONS: Right leg pain beginning 3 days ago Technique: Multiple sonographic images of the deep venous system have been obtained. B-mode/2-D grayscale imaging of vascular structures and Doppler spectral analysis (waveforms) and color performed Both legs are examined. Findings: Deep venous systems do not demonstrate abnormal echogenicity. All visualized deep veins exhibit compressibility. All visualized deep veins exhibit augmentation. Impression: Negative for deep vein thrombosis
--- NOTE | 2024-10-19 08:59 | PC.NURSE ---
Mixing Operator: Noted MRI results - communication with primary team states Neuro has recommended dual antiplatelet therapy and possible outpatient stenting. Patient is greek speaking - spoke to him with RN safety glass installer. Told him the MRI does not show a stroke but he has an artery in the back of his head that has reduced blood flow, so we will start 2 new medications. Advised him to be very careful when up and that his dizziness symptoms may come and go. Gave him our stroke education book (in greek) with an illustration of reduced arterial flow related to plaque. RN will review it with him further, as well as the meds. Communicated this conversation to attending, Dr Hills, as well as ED charge loader.
[2024-10-19] MEDS: CLOPIDOGREL BISULFATE 75 MG TABLET PO (09:10)
[2024-10-19] MEDS: ASPIRIN EC 81 MG TABEC PO (09:11)
--- NOTE | 2024-10-19 09:19 | PD.RESCONSUL ---
HPI Data of Consult Consult date: 10/19/24 Requesting Physician: Jose Buchanan DO Admitting Provider: Jose Buchanan DO Attending Provider: Jose Buchanan DO Primary Care Provider: Didi Atwood Consult Narrative Reason for consult: Hyponatremia History of present illness: Informant- Horacio Martinez is a 58-year-old male with a past medical history of insulin-dependent type 2 diabetes mellitus, hypothyroidism, scoliosis, and chronic musculoskeletal pain who presented with dizziness. States that this has progressively worsened within the last few days to the point that when he woke up in the morning, he felt extremely dizzy and needed to sit down. Denies headache, vision changes, hearing changes, lightheadedness. Additionally, patient states that he drinks at least 1 L of water per day with associated nocturia (3-4 episodes per night) and polyuria (5-6 episodes per day). In ED, BP 93/58, HR 99, otherwise vitals stable. Na 118, Cl 92, A1c 7.4%, serum osm 245. CT head unremarkable. CTA head/neck showed occlusion of left [employer], P1 and P2 segements. MRI/MRA brain showed lack of filling in left [employer] at beginning of P1. Teleneurology consulted and there were no concerns for acute stroke at the time, and no TNK was given. Admitted for management and work-up for CVA and nephrology consulted for hyponatremia. 10/19: Patient seen and examined at bedside in ED. No acute overnight events. Imaging of right lower extremity showed mild/moderate hip osteoarthritis and advanced tricompartment osteoarthritis of the knee with prominent osteopenia. Patient and spouse made aware of neurological imaging findings. cc:: cc: Jose Buchanan DO Review of Systems Review of Systems Narrative Review of Systems: CONSTITUTIONAL: Patient denies any fever, chills positive for weight loss. patient has thyroid problems HEENT: Denies any visual disturbances or hearing problems. CARDIOVASCULAR: Patient denies any chest pain, shortness of breath, swelling in the lower extremities. PULMONARY: Patient denies any shortness of breath, cough. GASTROINTESTINAL: Patient denies any abdominal pain, constipation, nausea, vomiting, diarrhea. GENITOURINARY: Patient denies any urinary symptoms of burning or frequency or hematuria, denies any form in the urine. SKIN: Denies any rash. MUSCULOSKELETAL: Planing of significant weakness and unable to move his right lower extremity NEUROLOGICAL: Denies any neurological problems of strokes, seizures or confusion. Denies any memory problems. Gait imbalance, weakness PSYCHIATRIC: Denies any depression or anxiety. LYMPHATICS : No lymphadenopathy Past Medical History Past Medical History CARDIAC: Positive Hypertension; Negative Cardiac Disorders, Hypercholesterolemia or Congestive Heart Failure RESPIRATORY: Negative Respiratory Disorders, Chronic Obstructive Pulmonary Disease (COPD) or Asthma GENITOURINARY: Negative Renal Disease ENDOCRINE: Positive Diabetes Mellitus Type 2; Negative Diabetes Mellitus Type 1 HEMATOLOGIC: Negative Sickle Cell Disease Social History SMOKING STATUS: Former smoker Past Medical History Comments PMH COMMENT: Past medical history: ? Hyperthyroidism ? Insulin-dependent diabetes mellitus type 2 - Scoliosis - Chronic musculoskeletal pain Medication list: ? Trazodone 50 Mg p.o. at bedtime ? Simvastatin 20 Mg p.o. at bedtime ? Methimazole 5 Mg p.o. daily ? Lisinopril 5 Mg p.o. daily ? Lantus 24 units SC daily ? Meloxicam 7.5 Mg p.o. daily ? 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 Tobacco use: Quit 30 years ago. ETHO use: Quit 15 years ago. Previously drank approximately 12 beers a day Illicit drug use: Denies Social History Note: lives with and 2 kids Family History: No significant family history Exam Vital Signs Temp Pulse Resp BP Pulse Ox O2 Del Method 98.4 F 75 18 137/82 H 100 Room Air 10/19/24 09:13 10/19/24 09:13 10/19/24 09:13 10/19/24 09:13 10/19/24 09:13 10/19/24 09:13 Narrative Exam General: AOx3, no acute distress, able to speak full sentences. patient seems to have lost weight looks older than his stated age HEENT: NC/AT, mucous membranes moist, bilateral sclera anicteric Cardiovascular: regular rate and rhythm, S1/S2 present, no murmurs appreciated Pulmonary: clear to auscultation bilaterally, no rales/rhonchi/wheezes Abdominal: soft, non-tender, non-distended, no rebound/guarding, normal bowel sounds present Musculoskeletal: Unable to his right lower extremity. Cannot bend or extend. Difficult weakness noted of the right lower leg Skin: warm and dry, intact, no rashes Neuro: CN II-XII intact, no focal deficits Results Labs 10/21/24 05:00 10/21/24 05:00 Labs: Short CBC 10/18/24 10/19/24 Range/Units 22:39 05:00 WBC 7.7 6.7 (3.8-10.6) Thou/mm3 Hgb 13.3 L 12.5 L (13.5-16.0) g/dL Hct 34.2 L 32.6 L (41.0-53.0) % Plt Count 322 295 (140-440) Thou/mm3 BMP 10/18/24 10/19/24 10/19/24 22:39 02:43 05:00 Sodium 118 L* 122 L 122 L Potassium 4.4 4.4 Chloride 88 L 92 L Carbon Dioxide 23.1 24.3 BUN 16 14 Creatinine 0.8 0.7 Glucose 211 H 152 H D Calcium 9.3 9.0 Cardiac Enzymes 10/18/24 Range/Units 22:39 Troponin I < 0.020 (0.0-0.045) ng/mL Liver Function 10/18/24 10/19/24 Range/Units 22:39 05:00 Total Bilirubin 1.7 H 1.8 H (0.3-1.2) mg/dL AST 16 13 (0-34) U/L ALT 26 23 (10-49) U/L Alkaline Phosphatase 60 54 (46-116) U/L Albumin 4.4 4.1 (3.5-5.0) gm/dL Urine 10/19/24 Range/Units 00:04 Urine Color Lt-Yellow (Lt Yel-Yel) Urine Clarity Clear (Clear/Hazy) Urine pH 8.0 H (5.0-7.0) Ur Specific [place] 1.035 (1.001-1.035) Urine Protein Negative (Neg - Trace) Urine Glucose (UA) 3+ A (Negative) Quality Measures Quality Measures none Medications Home Medications and Allergies Allergies Allergy/AdvReac Type Severity Reaction Status Date / Time No Known Allergies Allergy Verified 09/30/24 14:02 Visit Medications Acetaminophen (Acetaminophen 325 Mg Tablet) 650 mg PO Q6H PRN PRN Reason: Fever >100.3 or pain Stop: 11/18/24 02:20 Hydrocodone Bitart/Acetaminophen (Hydrocodone/Apap 5/325 Tablet) 1 tab PO Q4HR PRN PRN Reason: PAIN SCALE 4-10(Mod-Sev Stop: 10/24/24 02:20 Albuterol/Ipratropium (Albuterol/Ipratropium (Duoneb) Rt [place]i 3 Ml Nebu) 3 ml INH Q2HR PRN PRN Reason: SHORTNESS OF BREATH OR WHEEZE Stop: 11/18/24 02:20 Aspirin (Aspirin Ec 81 Mg Tabec) 81 mg PO QDAY [facility] Stop: 11/18/24 08:54 Last Admin: 10/19/24 09:11 Dose: 81 mg Atorvastatin Calcium (Atorvastatin Calcium 20 Mg Tablet) 80 mg PO HS [facility] Stop: 11/18/24 20:59 Clopidogrel Bisulfate (Clopidogrel Bisulfate 75 Mg Tablet) 75 mg PO QDAY [facility] Stop: 11/18/24 08:54 Last Admin: 10/19/24 09:10 Dose: 75 mg Dextrose (Dextrose 50%-Water Inj 50 Ml Syringe) 50 ml IV Q15MIN PRN PRN Reason: BG <50 OR BG <70 & pt unresponsive Stop: 11/18/24 02:28 Glucagon (Glucagon Inj 1 Mg Vial) 1 mg IM Q15MIN PRN PRN Reason: BG <70, and no IV access Heparin Sodium (Porcine) (Heparin Sod Inj 5000 Unit/Ml Vial) 5,000 unit SC BID [facility] Stop: 11/02/24 02:29 Last Admin: 10/19/24 09:10 Dose: 5,000 unit Insulin Human Lispro (Insulin Lispro (Admelog) 1 Unit/0.01 Ml Unit) 0 unit SC [facility]; Protocol Stop: 11/18/24 07:29 Last Admin: 10/19/24 07:39 Dose: Not Given Meclizine HCl (Meclizine Hcl 25 Mg Tablet) 25 mg PO TID PRN PRN Reason: DIZZINESS Stop: 11/18/24 04:34 Methimazole (Methimazole 5 Mg Tablet) 5 mg PO DAILY [facility] Stop: 11/18/24 08:59 Last Admin: 10/19/24 09:11 Dose: Not Given Ondansetron HCl (Ondansetron Inj 2 Mg/Ml Inj 2 Ml) 4 mg IV Q6H PRN; Protocol PRN Reason: NAUSEA OR VOMITING Stop: 11/18/24 02:20 Discontinued Medications Sodium Chloride (Ns) 500 mls @ 999 mls/hr IV .Q31M ONE Stop: 10/19/24 00:35 Last Infusion: 10/19/24 00:52 Dose: Infused Assessment & Plan Plan Horacio Martinez is a 58-year-old male with a past medical history of insulin-dependent type 2 diabetes mellitus, hypothyroidism, scoliosis, and chronic musculoskeletal pain is admitted for management and work-up for CVA and nephrology consulted for hyponatremia. #Hypo-osmolar, hyponatremia, severe (< 120 mEq) Although neurological imaging did not show evidence of acute infarct, there are filling defects noted in left [employer] which may be contributing to patient's dizziness and may also be the etiology of Na secondary to SIADH. This is supported by low uric acid, upper limit of normal urine specific gravity. However, pending urine osmolality and patient also noted to be hyponatremic at 126 during previous admission on 09/30/2024. Initial Na of 118 without seizures, obtundation, coma, or respiratory arrest and has steadily increased to 122. ? Agree with frequent Na checks ? Goal of increasing serum Na 4-6 mEq in first 24 hours ? Recommend fluid restrictions and can consider salt tablets after reaching goal #? CVA vs vertigo #Dizziness #Hyperthyroidism #Type 2 diabetes mellitus, insulin-dependent #Scoliosis #Musculoskeletal pain, chronic ? Continue management per primary team ----- Plan discussed with attending physician Dr. Guilherme Chawla MD PGY-1 Internal Medicine Attending Provider Attestation/Addendum Patient seen and examined with resident physician Dr. Dupree. Note reviewed, agree with findings and patient with changes made. Had a long conversation with . Apparently since July patient has not been doing well. He started noticing significant weakness and unable to flex or extend his right lower extremity and since then has been wheelchair-bound. He is bedbound as per . Barely able to walk with a walker due to the right leg weakness. Went and saw his primary care physician and was told he has muscular atrophy although no workup was done. Chart review showed that in September his sodium was low. He stopped taking all his medications in the last 5 days. Home medications include aspirin, Lipitor, Plavix, Megace, methimazole. Hemoglobin 12.5, platelets 295. Sodium 118, potassium 4.4, creatinine 0.7, glucose 152, A1c 7 point, uric acid 2.2 consistent with SIADH, calcium 9.0, magnesium 2, total bilirubin 1.8, LFTs normal, TSH 2.64, free T41.84, urinalysis shows urine pH 1035 consistent with concentrated urine and 3+ glucose. Urine sodium 29.1. Urine tox screen positive for marijuana. Venous Doppler ultrasound negative for DVT. Knee x-ray showed osteoarthritis. Femur x-ray showed moderate right hip arthritis. Brain MRI showed no MR findings of demyelinating disease//stroke. 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 No medications that can be attributed. Patient noted to have weight loss and significant atrophy and weakness in the right lower extremity. Rule out paraneoplastic syndrome. CT of the chest, abdomen, pelvis ordered to look for underlying malignancy. Plan of care discussed with . Held the statin for now until the right leg weakness diagnosis is made Thank you [facility] for allowing me to participate in the care of Mr. Martinez
[2024-10-19] MEDS: METHIMAZOLE 5 MG TABLET PO (10:43)
[2024-10-19 11:17] LABS: Sodium 122 mMol/L (136-145)
--- NOTE | 2024-10-19 14:22 | ESPR_ITS ---
<Statement entered by Ranjit Yoon MD - 10/19/24 15:11> Patient was seen and examined at the bedside. Patient is admitted for chief complaint of dizziness and stroke workup. CT imaging and MRI brain imaging confirmed stroke with occlusion. Neurologist recommended to continue aspirin, Plavix, statin and continue management and will benefit with stenting as outpatient and no transfer required at this point. 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 We are trending sodium Q4 hourly and treating for possible SIADH pattern. Nephrology following the case. Patient additionally have A1c of 7.4 therefore continue sliding scale. Awaiting echocardiogram with bubble study and further neurology recommendations. All labs and orders were reviewed. I saw and examined the patient, and I agree with current management stated by Dr Dr Ami MD,PGY1. Plan of care was discussed with the attending physician and resident physician. Disclaimer: Despite multiple revisions, due to the dictation software being used, the document bellow may not be free of grammatical errors including phonetic/typographic errors. However, this does not deter from our commitment to providing health care in the patient's best interest in mind. Dr. Car MD, PGY 2 Documentation for date of: 10/19/24 Subjective Subjective Interval history: No overnight events. Patient seen and examined at bedside. Patient complains only of dizziness on standing, significant right leg weakness which has been chronic. Patient had no other focal neurological deficits, did not experience dizziness with any head maneuvers. Denied fevers, chills, shortness of breath, chest pain, nausea, vomiting. Per neuro recs admitted with DAPT, statin for stroke of posterior cerebral artery. Per nephro recs, fluid restriction and close monitoring hyponatremia. Patient positive for orthostatic hypotension. Exam Vital Signs Temp Pulse Resp BP Pulse Ox O2 Del Method 98.4 F 75 18 137/82 H 100 Room Air 10/19/24 09:13 10/19/24 09:13 10/19/24 09:13 10/19/24 09:13 10/19/24 09:13 10/19/24 09:13 Narrative Exam PE: Gen: Well-developed and well-nourished. HEENT: NCAT, PERRLA, EOMI, MMM, anicteric conjunctivae. CVS: normal S1 and S2. RRR. No M/R/G. Resp: CTA B/L. No rhonchi, rales, crackles or wheezing. Abd: soft, non-tender, non-distended. MSK: Good ROM in BUE & BLE. No edema or rash. Neuro: CN II-XII grossly intact. Strength 5/5 in BUE & LLE. Alert and oriented x3. Right leg 0/5 muscle strength, full strength intact, chronic. Psych: appropriate mood and affect. Objective Labs 10/20/24 04:15 10/20/24 04:15 Labs: Laboratory Results - last 24 hr 10/18/24 10/19/24 10/19/24 22:39 00:04 02:41 WBC 7.7 RBC 4.47 L Hgb 13.3 L Hct 34.2 L MCV 77 L MCH 29.8 MCHC 38.9 H RDW Std Deviation 34.7 L Plt Count 322 Neut % (Auto) 65 Lymph % (Auto) 26 [place] % (Auto) 7 Eos % (Auto) 1 Baso % (Auto) 0 Neut # (Auto) 5.0 Lymph # (Auto) 2.0 [place] # (Auto) 0.6 Eos # (Auto) 0.1 Baso # (Auto) 0.0 Immature Gran # (Auto) 0.01 H Absolute Nucleated RBC 0.00 Immature Gran % 0 Nucleated RBC % 0 PT 11.1 INR 1.0 APTT 27.7 Sodium 118 L* Potassium 4.4 Chloride 88 L Carbon Dioxide 23.1 Anion Gap 7 BUN 16 Creatinine 0.8 Estim Creat Clear Calc 77.9 eGFR > 60 BUN/Creatinine Ratio [address] Glu mg/dL Hemoglobin A1c Calculated Osmolality 245 L Uric Acid Calcium 9.3 Corrected Calcium 9.3 Magnesium 2.0 Total Bilirubin 1.7 H AST 16 ALT 26 Alkaline Phosphatase 60 Troponin I < 0.020 Total Protein 6.8 Albumin 4.4 Globulin 2.4 Albumin/Globulin Ratio 1.8 TSH Free T4 Ur Collection Type Clean Catch Urine Color Lt-Yellow Urine Clarity Clear Urine pH 8.0 H Ur Specific [place] 1.035 Urine Protein Negative Urine Glucose (UA) 3+ A Urine Ketones Negative Urine Blood Negative Urine Nitrite Negative Urine Bilirubin Negative Urine Urobilinogen (Auto) Negative Ur Leukocyte Esterase Negative Urine RBC 2 Urine WBC < 1 Ur Squamous Epith Cells 0 Urine Bacteria None Ur Random Creatinine 33 Ur Random Sodium Ur Random Potassium Ur Random Chloride Urine Opiates Screen Negative Urine Fentanyl Screen Negative Ur Barbiturates Screen Negative U Amphetamin/Meth Scrn Negative U Benzodiazepines Scrn Negative U Cocaine Metab Screen Negative U Marijuana (THC) Screen Positive A 10/19/24 10/19/24 10/19/24 02:41 02:43 05:00 WBC 6.7 RBC 4.26 L Hgb 12.5 L Hct 32.6 L MCV 77 L MCH 29.3 MCHC 38.3 H RDW Std Deviation 34.5 L Plt Count 295 Neut % (Auto) 65 Lymph % (Auto) 26 [place] % (Auto) 7 Eos % (Auto) 1 Baso % (Auto) 0 Neut # (Auto) 4.4 Lymph # (Auto) 1.8 [place] # (Auto) 0.5 Eos # (Auto) 0.1 Baso # (Auto) 0.0 Immature Gran # (Auto) 0.02 H Absolute Nucleated RBC 0.00 Immature Gran % 0 Nucleated RBC % 0 PT INR APTT Sodium 122 L 122 L Potassium 4.4 Chloride 92 L Carbon Dioxide 24.3 Anion Gap 6 L BUN 14 Creatinine 0.7 Estim Creat Clear Calc 89.0 eGFR > 60 BUN/Creatinine Ratio [address]ucose [address] Glu mg/dL 166 H Hemoglobin A1c 7.4 H Calculated Osmolality 249 L Uric Acid 2.2 L Calcium 9.0 Corrected Calcium 9.0 Magnesium 2.0 Total Bilirubin 1.8 H AST 13 ALT 23 Alkaline Phosphatase 54 Troponin I Total Protein 6.4 Albumin 4.1 Globulin 2.3 Albumin/Globulin Ratio 1.8 TSH 2.64 Free T4 1.84 H Ur Collection Type Urine Color Urine Clarity Urine pH Ur Specific [place] Urine Protein Urine Glucose (UA) Urine Ketones Urine Blood Urine Nitrite Urine Bilirubin Urine Urobilinogen (Auto) Ur Leukocyte Esterase Urine RBC Urine WBC Ur Squamous Epith Cells Urine Bacteria Ur Random Creatinine Cancelled Ur Random Sodium 29.1 Ur Random Potassium 32 Ur Random Chloride 30.5 L Urine Opiates Screen Urine Fentanyl Screen Ur Barbiturates Screen U Amphetamin/Meth Scrn U Benzodiazepines Scrn U Cocaine Metab Screen U Marijuana (THC) Screen 10/19/24 10:55 WBC RBC Hgb Hct MCV MCH MCHC RDW Std Deviation Plt Count Neut % (Auto) Lymph % (Auto) [place] % (Auto) Eos % (Auto) Baso % (Auto) Neut # (Auto) Lymph # (Auto) [place] # (Auto) Eos # (Auto) Baso # (Auto) Immature Gran # (Auto) Absolute Nucleated RBC Immature Gran % Nucleated RBC % PT INR APTT Sodium 122 L Potassium Chloride Carbon Dioxide Anion Gap BUN Creatinine Estim Creat Clear Calc eGFR BUN/Creatinine Ratio Glucose Estimated Ave Glu mg/dL Hemoglobin A1c Calculated Osmolality Uric Acid Calcium Corrected Calcium Magnesium Total Bilirubin AST ALT Alkaline Phosphatase Troponin I Total Protein Albumin Globulin Albumin/Globulin Ratio TSH Free T4 Ur Collection Type Urine Color Urine Clarity Urine pH Ur Specific [place] Urine Protein Urine Glucose (UA) Urine Ketones Urine Blood Urine Nitrite Urine Bilirubin Urine Urobilinogen (Auto) Ur Leukocyte Esterase Urine RBC Urine WBC Ur Squamous Epith Cells Urine Bacteria Ur Random Creatinine Ur Random Sodium Ur Random Potassium Ur Random Chloride Urine Opiates Screen Urine Fentanyl Screen Ur Barbiturates Screen U Amphetamin/Meth Scrn U Benzodiazepines Scrn U Cocaine Metab Screen U Marijuana (THC) Screen Quality Measures Quality Measures VTE prophylaxis Assessment & Plan Assessment Current Active Medications: Generic Name Dose Route Start Last Admin Trade Name Freq PRN Reason Stop Dose Admin Acetaminophen 650 mg 10/19/24 02:21 Acetaminophen 325 Mg Tablet PO 11/18/24 02:20 Q6H PRN Fever >100.3 or pain Hydrocodone Bitart/Acetaminophen 1 tab 10/19/24 02:21 Hydrocodone/Apap 5/325 Tablet PO 10/24/24 02:20 Q4HR PRN PAIN SCALE 4-10(Mod-Sev Albuterol/Ipratropium 3 ml 10/19/24 02:21 Albuterol/Ipratropium (Duoneb) Rt Noemi 3 Ml Nebu INH 11/18/24 02:20 Q2HR PRN SHORTNESS OF BREATH OR WHEEZE Aspirin 81 mg 10/19/24 08:55 10/19/24 09:11 Aspirin Ec 81 Mg Tabec PO 11/18/24 08:54 81 mg QDAY MEDINA Administration Atorvastatin Calcium 80 mg 10/19/24 21:00 Atorvastatin Calcium 20 Mg Tablet PO 11/18/24 20:59 HS MEDINA Clopidogrel Bisulfate 75 mg 10/19/24 08:55 10/19/24 09:10 Clopidogrel Bisulfate 75 Mg Tablet PO 11/18/24 08:54 75 mg QDAY MEDINA Administration Dextrose 50 ml 10/19/24 02:29 Dextrose 50%-Water Inj 50 Ml Syringe IV 11/18/24 02:28 Q15MIN PRN BG <50 OR BG <70 & pt unresponsive Glucagon 1 mg 10/19/24 02:29 Glucagon Inj 1 Mg Vial IM Q15MIN PRN BG <70, and no IV access Heparin Sodium (Porcine) 5,000 unit 10/19/24 02:30 10/19/24 09:10 Heparin Sod Inj 5000 Unit/Ml Vial SC 11/02/24 02:29 5,000 unit BID MEDINA Administration Insulin Human Lispro 0 unit 10/19/24 07:30 10/19/24 11:16 Insulin Lispro (Admelog) 1 Unit/0.01 Ml Unit SC 11/18/24 07:29 Not Given ACHS MEDINA Protocol Meclizine HCl 25 mg 10/19/24 04:35 Meclizine Hcl 25 Mg Tablet PO 11/18/24 04:34 TID PRN DIZZINESS Methimazole 5 mg 10/19/24 09:00 10/19/24 10:43 Methimazole 5 Mg Tablet PO 11/18/24 08:59 5 mg DAILY MEDINA Administration Ondansetron HCl 4 mg 10/19/24 02:21 Ondansetron Inj 2 Mg/Ml Inj 2 Ml IV 11/18/24 02:20 Q6H PRN NAUSEA OR VOMITING Protocol Plan 58-year-old male with past medical history significant for insulin-dependent diabetes mellitus type 2, hyperthyroidism, scoliosis and chronic musculoskeletal pain presented today with a chief complaint of dizziness. Patient will be admitted for workup and management of stroke rule out, symptomatic hyponatremia and dizziness for investigation. #Stroke rule out Patient presented with symptoms of dizziness, NIHSS 4. CT brain negative for acute hemorrhage, mass effect or midline shift. Head and neck CTA positive for occlusion left [employer] branches P1 and P2. MRI showed lack of filling of left posterior cerebral artery. Neurology consulted, recommended admit for stroke with DAPT, statin, stroke workup. Patient has positive orthostatic hypotension. Passed swallow eval. -Neuro checks q 4H -Head of bed elevated to 30 degrees -PT/ST referrals placed -Seizure precautions in place -ECHO with bubble study ordered -PRN Acetaminophen 650mg to avoid hyperthermia -PRN Labetaol 10 mg IV Q10 mins for SBP > 220 -Dr Vance consulted, recommendations appreciated -Meclizine 25 Mg p.o. 3 times daily as needed for dizziness #Severe, symptomatic hypoosmolar hyponatremia #Hypochloremia Patient only drinks 1 L of water per day. For the past few months has Chronic polyuria and nocturia. Recently was prescribed trazodone. On admission NA 118, OSM 245, CL 88. Sodium improved to 122 with 500 mL bolus, has stayed there over repeat checks. Urine studies: Creatinine 33, sodium 29.1, potassium 32, lower 30.5, FeNa 0.5% -Discontinued Trazadone as this can cause SIADH -NA checks Q4 hourly -Goal of sodium correction 4-6 mmol in any 24-hour. -Nephrology, Dr Vanegas consulted and closely following the case. Appreciate recommendations -Fluid restriction as per nephro recs #Hyperthyroidism Home medication methimazole 5 Mg p.o. daily Patient was scheduled for a thyroid ultrasound today -Resumed home medication methimazole 5 Mg p.o. daily #Insulin-dependent diabetes mellitus type 2 Patient's home medication Lantus 24 units SC daily. No recent A1c on file but reported as 11 by patient. A1c 7.4%. -ISSISS #Scoliosis #Chronic musculoskeletal pain Patient had right femur, knee and leg pain for the past few months which progressed. Associated with progressive weakness. Currently patient can barely ambulate with the assistance of a walker. On exam, patient is 0/5 proximal right leg strength, foot strength intact. Right femur/knee x-ray showed significant osteoarthritis. -[place] 5 p.o. every 4 hours as needed for pain DVT prophylaxis: Heparin GI prophylaxis: None Diet: Carb consistent Lines: Peripheral IV Code status: Full code Plan of care discussed with senior resident Dr. Yoon PGY?[address] Hills. Rodrick Mueller MD PGY-1 Attending Provider Attestation/Addendum I have examined the patient, reviewed labs and imaging findings, discussed the case with the resident(s), and reviewed entered orders. I agree with the plan of care as outlined in this note, with these additional summaries/recommendations: Patient seen at bedside. At bedside patient endorses dizziness when standing although denies dizziness while lying in hospital bed. He also endorses some right leg weakness. Brain MRI did not reveal acute infraction but did show lack of filling of posterior cerebral artery. CTA head and neck showed occlusion left posterior cerebral artery involving P1 and P2 segments. Neurology following. Continue dual antiplatelet therapy with aspirin and Plavix. Continue high intensity atorvastatin 80 mg p.o. at bedtime. Cleared by speech therapy and started on diet. Hypoosmolar hyponatremia present with sodium 118 on admission and improved to 122 after IV fluid bolus. Nephrology consulted, recommendations appreciated. Recommends fluid restriction and salt tablets once at goal. Continue methimazole for hyperthyroidism. Pending PT evaluation. Repeat hematology and chemistry panel in AM. Dr. Hills
[2024-10-19 15:32] LABS: Sodium 122 mMol/L (136-145)
[2024-10-19 19:15] LABS: Sodium 122 mMol/L (136-145)
--- NOTE | 2024-10-19 20:20 | XR_ITS ---
Examination: CT chest, without intravenous contrast. CT abdomen, without intravenous contrast. 2-D sagittal and coronal reconstructions. 3-D reconstructions. Date and time of exam:October 19, 20242052 hrs. Indications: Bone pain 3 months, chest pain abdominal pain CTDI vol (mgy) 5.04 DLP (MGycm)268 Technique: Multiple CT images, 3.0 mm slice thickness, obtained chest, abdomen with the high-resolution 64 slice scanner.. Sagittal and coronal 2-D reconstructions are obtained. 3-D reconstructions Low dose protocols were performed. One or more of the following dose reduction techniques were used; automated exposure control, adjustment of the mA and/or KV according to patient size, use of iterative reconstruction technique. Findings: No thoracic aortic aneurysmal dilatation Pulmonary artery segments are not enlarged No paratracheal tracheobronchial or bronchopulmonary adenopathy No pneumonia or pulmonary edema, pleural disease or pulmonary mass lesions 7 mm probable liver cyst image 131 No definite gallstones No pancreatic or adrenal mass No renal or ureteral calculi, no hydronephrosis Abundant stool throughout the colon No obstruction Moderate osteopenia Moderate thoracic spondylosis Grade 1-2 spondylolisthesis L5 on S1 with advanced degenerative disc disease at this level Impression: No mediastinal lymphadenopathy No pneumonia, pulmonary edema, pleural disease or pulmonary mass lesion No abdominal mass, no abdominal lymphadenopathy
--- NOTE | 2024-10-19 20:21 | XR_ITS ---
Examination: CT pelvis without intravenous contrast. 2-D sagittal and coronal reconstructions. Date and time of exam:October 19, 2024 2053 hrs. Indications: Pelvic pain pelvic pain this week CTDI: vol (mGy) :3.56 DLP: (mGycm) : 112 Technique: Multiple 3 mm axial sections of the pelvis have been obtained with the 64 slice high resolution scanner. 2-D sagittal and coronal reconstructions. Low dose protocols were performed. One or more of the following dose reduction techniques were used; automated exposure control, adjustment of the mA and/or KV according to patient size, use of iterative reconstruction technique. Findings: Large amounts of stool in the colon Normal appendix No bowel obstruction No diverticulitis Contrast in the distended urinary bladder Transverse prostate dimension 5.4 cm Stable sclerotic focus in the left hip compared with August 08, 2015 Impression: Prostatomegaly, transverse dimension 5.4 cm
[2024-10-19] MEDS: ATORVASTATIN CALCIUM 20 MG TABLET 80 MG PO (21:17)
[2024-10-20] VITALS (8 sets, daily range): BP systolic 123–153; BP diastolic 88–98; PULSE 71–93; RESP 16–100; TEMP 36.4–37; O2SAT 84–100
[2024-10-20 05:52] LABS: Basophils % (Auto) 1 % (0-2.5); Eosinophils # (Auto) 0.1 Thou/mm3 (0.0-0.5); Eosinophils % (Auto) 1 % (0-10); Hematocrit 35.1 % (41.0-53.0); Hemoglobin 13.8 g/dL (13.5-16.0); Immature Granulocytes % (Auto) 0 % (0-0); Immature Granulocytes Auto 0.01 Thou/mm3 (0.00-0.00); Lymphocytes # (Auto) 1.8 Thou/mm3 (1.0-4.8); Lymphocytes % (Auto) 30 % (10-50); Mean Corpuscular HGB Conc 39.3 g/dl (31.0-37.0); Mean Corpuscular Hemoglobin 29.9 pg (25.0-35.0); Mean Corpuscular Volume 76 fL (80-100); Monocytes # (Auto) 0.4 Thou/mm3 (0.0-0.8); Monocytes % (Auto) 7 % (0-12); Neutrophils # (Auto) 3.7 Thou/mm3 (1.8-7.7); Neutrophils % (Auto) 61 % (37-80); Nucleated Red Blood Cell % 0 /100 WBC (0); Platelet Count 303 Thou/mm3 (140-440); RDW Standard Deviation 34.3 fL (35.1-43.9); Red Blood Count 4.62 Miln/mm3 (4.50-5.90)
[2024-10-20 06:53] LABS: Alanine Aminotransferase 21 U/L (10-49); Albumin, Serum 4.4 gm/dL (3.5-5.0); Albumin/Globulin Ratio 1.8 (1.2-2.2); Alkaline Phosphatase 57 U/L (46-116); Anion Gap 9 (7-16); Aspartate Amino Transferase 14 U/L (0-34); BUN/Creatinine Ratio 20 Ratio (12-20); Bilirubin,Total 2.1 mg/dL (0.3-1.2); Blood Urea Nitrogen 12 mg/dL (9-23); Calcium 9.2 mg/dL (8.3-10.6); Calcium (Corrected) 9.2 mg/dL (8.5-10.1); Carbon Dioxide 22.5 mMol/L (20.0-31.0); Chloride 90 mMol/L (98-107); Creatinine (Component) 0.6 mg/dL (0.6-1.3); Estimated Creatinine Clearance 101.4 mL/min (>60); Globulin 2.4 gm/dL (2.3-3.5); Glucose 130 mg/dL (74-106); Magnesium 1.9 mg/dL (1.6-2.6); Osmolality,Calculated 245 (275-295); Phosphorous 4.5 mg/dL (2.4-5.1); Potassium 4.4 mMol/L (3.4-5.1); Sodium 121 mMol/L (136-145); Total Protein 6.8 gm/dL (5.7-8.2); eGFR > 60 See Note
--- NOTE | 2024-10-20 07:58 | PD.NEUROPROG ---
Documentation for date of: 10/19/24 Subjective Subjective Interval history: 58yo man with past medical history significant for poorly controlled DM2, HTN, and diabetic neuropathy, who presents today with a few days of lightheadedness that is worse with sitting up or standing, and per , acutely worsened today. Pt denies room spinning sensation and endorses lightheadedness only, and also feels generally weak. He also reports that he has had right leg weakness since July of 2024 from advanced OA of the hip and knee. Exam - Neurology Vital Signs Temp Pulse Resp BP Pulse Ox O2 Del Method 98.4 F 77 16 123/88 H 84 L Room Air 10/19/24 23:00 10/20/24 04:00 10/20/24 04:00 10/20/24 04:00 10/20/24 04:00 10/19/24 23:00 Narrative Exam GENERAL APPEARANCE: Well hydrated, well-nourished in no acute distress. HEENT: Normocephalic, atraumatic, extraocular movements intact. Pupils: Equal reacting to light and accommodation, no nystagmus NECK: Supple, no JVD or bruits. CARDIOVASULAR: Heart: S1, S2 heard, regular without S3-S4 or murmur no rubs or gallops. LUNGS/CHEST: Clear to auscultation bilaterally. No rails, rhonchi, or wheezing. Normal inspection. ABDOMEN: Soft, nontender, with normal bowel sounds. No pulsatile masses. No rebound, rigidity, or guarding. Normal inspection and palpation. EXTREMITIES: Normal inspection and palpation. No edema, clubbing or cyanosis. SKIN: Warm and dry without rashes. Normal inspection. MUSCULOSKELETAL: No cervical, thoracic, lumbar or midline bony tenderness. Normal inspection. NEURO: Alert, awake and oriented x3. Cranial nerves: II through XII grossly intact. Speech and language: Normal with no dysarthria or dysphasia. Motor system: Tone and bulk: Normal: Strength: 5 out of 5 in all 4 extremities except the right LE as at baseline; No pronator drift noted. Deep tendon reflexes: 2+ bilaterally symmetrical. Plantar reflex: Downgoing bilaterally. Sensory system: Intact to all modalities of sensation bilaterally. Coordination: Intact to [id number] and [id number] test bilaterally. No ataxia, no dysmetria, or dysdiadochokinesia noted. No intention tremors noted. Gait: could not be tested from right LE weakness and Restricted ROM as at baseline. No signs of meningeal irritation noted. PSYCHIATRIC: Normal mood and affect. Objective Labs 10/20/24 04:15 10/20/24 04:15 Labs: Laboratory Results - last 24 hr 10/19/24 10/19/24 10/19/24 05:00 10:55 14:59 WBC RBC Hgb Hct MCV MCH MCHC RDW Std Deviation Plt Count Neut % (Auto) Lymph % (Auto) [place] % (Auto) Eos % (Auto) Baso % (Auto) Neut # (Auto) Lymph # (Auto) [place] # (Auto) Eos # (Auto) Baso # (Auto) Immature Gran # (Auto) Absolute Nucleated RBC Immature Gran % Nucleated RBC % Sodium 122 L 122 L Potassium Chloride Carbon Dioxide Anion Gap BUN Creatinine Estim Creat Clear Calc eGFR BUN/Creatinine Ratio Glucose Calculated Osmolality Uric Acid 2.2 L Calcium Corrected Calcium Phosphorus Magnesium Total Bilirubin AST ALT Alkaline Phosphatase Total Protein Albumin Globulin Albumin/Globulin Ratio 10/19/24 10/20/24 18:32 04:15 WBC 6.0 RBC 4.62 Hgb 13.8 Hct 35.1 L MCV 76 L MCH 29.9 MCHC 39.3 H RDW Std Deviation 34.3 L Plt Count 303 Neut % (Auto) 61 Lymph % (Auto) 30 [place] % (Auto) 7 Eos % (Auto) 1 Baso % (Auto) 1 Neut # (Auto) 3.7 Lymph # (Auto) 1.8 [place] # (Auto) 0.4 Eos # (Auto) 0.1 Baso # (Auto) 0.0 Immature Gran # (Auto) 0.01 H Absolute Nucleated RBC 0.00 Immature Gran % 0 Nucleated RBC % 0 Sodium 122 L 121 L Potassium 4.4 Chloride 90 L Carbon Dioxide 22.5 Anion Gap 9 BUN 12 Creatinine 0.6 Estim Creat Clear Calc 101.4 eGFR > 60 BUN/Creatinine Ratio 20 Glucose 130 H Calculated Osmolality 245 L Uric Acid Calcium 9.2 Corrected Calcium 9.2 Phosphorus 4.5 Magnesium 1.9 Total Bilirubin 2.1 H AST 14 ALT 21 Alkaline Phosphatase 57 Total Protein 6.8 Albumin 4.4 Globulin 2.4 Albumin/Globulin Ratio 1.8 Assessment & Plan Assessment and plan (1) Dizziness: Status: Acute Assessment and plan: could be from hyponatremia/Brainstem TIA from [employer] stenosis Needs aggressive medical mgt with contorlling BG, Lipids and BP control, dual antiplatelet therapy for life. Endovascular intervention for [employer] stenting if needed as an outpatient. (2) Acute hyponatremia: Status: Acute Assessment and plan: noted Nephrology is on board.
[2024-10-20] MEDS: HEPARIN SOD INJ 5000 UNIT/ML VIAL SC ×2 (08:23→20:59)
[2024-10-20] MEDS: INSULIN LISPRO (AdmeLOG) 1 UNIT/0.01 ML UNIT SC ×4 (08:24→21:00)
[2024-10-20] MEDS: METHIMAZOLE 5 MG TABLET PO (08:26)
[2024-10-20] MEDS: CLOPIDOGREL BISULFATE 75 MG TABLET PO (08:26)
[2024-10-20] MEDS: ASPIRIN EC 81 MG TABEC PO (08:26)
[2024-10-20 08:42] LABS: Cardiac Risk Estimate 2.1 RATIO (4.0-6.7); Cholesterol 116 mg/dL (132-200); HDL Cholesterol 54 mg/dL (40-60); LDL Cholesterol,Calculated 50 mg/dL (0-130); Triglycerides 58 mg/dL (30-150)
--- NOTE | 2024-10-20 10:13 | PCS.ST ---
No formal Speech services are warranted at this time. Pt is baseline for cognitive/communication. No dysphagia.
[2024-10-20] MEDS: SODIUM CHLORIDE 1 GM TABLET PO ×2 (10:43→21:11)
--- NOTE | 2024-10-20 12:33 | PD.RESPRO ---
Documentation for date of: 10/20/24 Subjective Subjective Interval history: Horacio Martinez is a 58-year-old male with a past medical history of insulin-dependent type 2 diabetes mellitus, hypothyroidism, scoliosis, and chronic musculoskeletal pain who presented with dizziness. States that this has progressively worsened within the last few days to the point that when he woke up in the morning, he felt extremely dizzy and needed to sit down. Denies headache, vision changes, hearing changes, lightheadedness. Additionally, patient states that he drinks at least 1 L of water per day with associated nocturia (3-4 episodes per night) and polyuria (5-6 episodes per day). In ED, BP 93/58, HR 99, otherwise vitals stable. Na 118, Cl 92, A1c 7.4%, serum osm 245. CT head unremarkable. CTA head/neck showed occlusion of left VAT OVERHAULER, P1 and P2 segements. MRI/MRA brain showed lack of filling in left VAT OVERHAULER at beginning of P1. Teleneurology consulted and there were no concerns for acute stroke at the time, and no TNK was given. Admitted for management and work-up for CVA and nephrology consulted for hyponatremia. 10/19: Patient seen and examined at bedside in ED. No acute overnight events. Imaging of right lower extremity showed mild/moderate hip osteoarthritis and advanced tricompartment osteoarthritis of the knee with prominent osteopenia. Patient and spouse made aware of neurological imaging findings. 10/20: Patient seen and examined at bedside in ICU due to overflow in telemetry. Seen sitting up in bed, whereas he was not able to yesterday due to dizziness and does not endorse dizziness today but does endorse nausea after taking salt tablet. No acute overnight events. CT A/P showed moderate osteopenia, thoracic spondylolysis, spondylolesthesis of L5 on S1 with advanced degenerative disease. CT pelvis showed prostatomegaly. Venous doppler of lower extremities negative for DVT. Na noted to drop from 122 to 121 and patient started on salt tablets. Exam Vital Signs Temp Pulse Resp BP Pulse Ox O2 Del Method 97.5 F 85 22 H 130/98 H 100 Room Air 10/20/24 12:00 10/20/24 12:00 10/20/24 12:10/20/24 12:10/20/24 12:10/19/24 23:00 Narrative Exam General: AOx3, no acute distress, able to speak full sentences, appears older than stated age HEENT: NC/AT, mucous membranes moist, bilateral sclera anicteric Cardiovascular: regular rate and rhythm, S1/S2 present, no murmurs appreciated Pulmonary: clear to auscultation bilaterally, no rales/rhonchi/wheezes Abdominal: soft, non-tender, non-distended, no rebound/guarding, normal bowel sounds present Musculoskeletal: unable to lift, bend or extend RLE, muscular atrophy in bilateral lower extremities Skin: warm and dry, intact, no rashes Neuro: CN II-XII intact, no focal deficits Objective Labs 10/21/24 05:00 10/21/24 08:50 Labs: Laboratory Results - last 24 hr 10/19/24 10/19/24 10/20/24 14:59 18:32 04:15 WBC 6.0 RBC 4.62 Hgb 13.8 Hct 35.1 L MCV 76 L MCH 29.9 MCHC 39.3 H RDW Std Deviation 34.3 L Plt Count 303 Neut % (Auto) 61 Lymph % (Auto) 30 Darke % (Auto) 7 Eos % (Auto) 1 Baso % (Auto) 1 Neut # (Auto) 3.7 Lymph # (Auto) 1.8 Darke # (Auto) 0.4 Eos # (Auto) 0.1 Baso # (Auto) 0.0 Immature Gran # (Auto) 0.01 H Absolute Nucleated RBC 0.00 Immature Gran % 0 Nucleated RBC % 0 Sodium 122 L 122 L 121 L Potassium 4.4 Chloride 90 L Carbon Dioxide 22.5 Anion Gap 9 BUN 12 Creatinine 0.6 Estim Creat Clear Calc 101.4 eGFR > 60 BUN/Creatinine Ratio 20 Glucose 130 H Calculated Osmolality 245 L Calcium 9.2 Corrected Calcium 9.2 Phosphorus 4.5 Magnesium 1.9 Total Bilirubin 2.1 H AST 14 ALT 21 Alkaline Phosphatase 57 Total Protein 6.8 Albumin 4.4 Globulin 2.4 Albumin/Globulin Ratio 1.8 Triglycerides 58 Cholesterol 116 L LDL Cholesterol, Calc 50 HDL Cholesterol 54 Cholesterol/HDL Ratio 2.1 L Quality Measures Quality Measures VTE prophylaxis Assessment & Plan Assessment Current Active Medications: Generic Name Dose Route Start Last Admin Trade Name Freq PRN Reason Stop Dose Admin Acetaminophen 650 mg 10/20/24 09:40 Acetaminophen 325 Mg Tablet PO 11/18/24 02:20 Q6H PRN Fever >100.3 or pain 1-3 Hydrocodone Bitart/Acetaminophen 1 tab 10/19/24 02:21 Hydrocodone/Apap 5/325 Tablet PO 10/24/24 02:20 Q4HR PRN PAIN SCALE 4-10(Mod-Sev Albuterol/Ipratropium 3 ml 10/19/24 02:21 Albuterol/Ipratropium (Duoneb) Rt Noemi 3 Ml Nebu INH 11/18/24 02:20 Q2HR PRN SHORTNESS OF BREATH OR WHEEZE Aspirin 81 mg 10/19/24 08:55 10/20/24 08:26 Aspirin Ec 81 Mg Tabec PO 11/18/24 08:54 81 mg QDAY MEDINA Administration Atorvastatin Calcium 80 mg 10/19/24 21:00 10/19/24 21:17 Atorvastatin Calcium 20 Mg Tablet PO 11/18/24 20:59 80 mg HS MEDINA Administration Clopidogrel Bisulfate 75 mg 10/19/24 08:55 10/20/24 08:26 Clopidogrel Bisulfate 75 Mg Tablet PO 11/18/24 08:54 75 mg QDAY MEDINA Administration Dextrose 50 ml 10/19/24 02:29 Dextrose 50%-Water Inj 50 Ml Syringe IV 11/18/24 02:28 Q15MIN PRN BG <50 OR BG <70 & pt unresponsive Glucagon 1 mg 10/19/24 02:29 Glucagon Inj 1 Mg Vial IM Q15MIN PRN BG <70, and no IV access Heparin Sodium (Porcine) 5,000 unit 10/19/24 02:30 10/20/24 08:23 Heparin Sod Inj 5000 Unit/Ml Vial SC 11/02/24 02:29 5,000 unit BID MEDINA Administration Insulin Human Lispro 0 unit 10/19/24 07:30 10/20/24 11:54 Insulin Lispro (Admelog) 1 Unit/0.01 Ml Unit SC 11/18/24 07:29 4 unit ACHS MEDINA Administration Protocol Magnesium Hydroxide 30 ml 10/20/24 08:04 Milk Of Magnesia Susp 30 Ml Udc PO 11/19/24 08:03 QDAY PRN CONSTIPATION Protocol Meclizine HCl 25 mg 10/19/24 04:35 Meclizine Hcl 25 Mg Tablet PO 11/18/24 04:34 TID PRN DIZZINESS Methimazole 5 mg 10/19/24 09:00 10/20/24 08:26 Methimazole 5 Mg Tablet PO 11/18/24 08:59 5 mg DAILY MEDINA Administration Ondansetron HCl 4 mg 10/19/24 02:21 Ondansetron Inj 2 Mg/Ml Inj 2 Ml IV 11/18/24 02:20 Q6H PRN NAUSEA OR VOMITING Protocol Sennosides 1 tab 10/20/24 08:04 Senna Tablet PO 11/19/24 08:03 QDAY PRN CONSTIPATION Protocol Sodium Chloride 1 gm 10/20/24 10:30 10/20/24 10:43 Sodium Chloride 1 Gm Tablet PO 11/19/24 10:29 1 gm BID MEDINA Administration Plan Horacio Martinez is a 58-year-old male with a past medical history of insulin-dependent type 2 diabetes mellitus, hypothyroidism, scoliosis, and chronic musculoskeletal pain is admitted for management and work-up for CVA and nephrology consulted for hyponatremia. #Hypo-osmolar, hyponatremia, severe (< 120 mEq) #? SIADH Although neurological imaging did not show evidence of acute infarct, there are filling defects noted in left VAT OVERHAULER which may be contributing to patient's dizziness and may also be the etiology of Na secondary to SIADH. This is supported by low uric acid, upper limit of normal urine specific gravity. However, pending urine osmolality and patient also noted to be hyponatremic at 126 during previous admission on 09/30/2024. Initial Na of 118 without seizures, obtundation, coma, or respiratory arrest and has steadily increased to 122. ? Agree with frequent Na checks and salt tablets ? Goal of increasing serum Na 4-6 mEq in first 24 hours ? Recommend fluid restrictions #? CVA vs vertigo #Dizziness #Hyperthyroidism #Type 2 diabetes mellitus, insulin-dependent #Scoliosis #Musculoskeletal pain, chronic ? Continue management per primary team ----- Plan discussed with attending physician Dr. Guilherme Chawla MD PGY-1 Internal Medicine Attending Provider Attestation/Addendum Patient seen and examined with resident physician Dr. Dupree. Note reviewed, agree with findings and patient with changes made. Had a long conversation with . Apparently since July patient has not been doing well. He started noticing significant weakness and unable to flex or extend his right lower extremity and since then has been wheelchair-bound. He is bedbound as per . Barely able to walk with a walker due to the right leg weakness. Went and saw his primary care physician and was told he has muscular atrophy although no workup was done. Chart review showed that in September his sodium was low. He stopped taking all his medications in the last 5 days. Home medications include aspirin, Lipitor, Plavix, Megace, methimazole. Hemoglobin 12.5, platelets 295. Sodium 118, potassium 4.4, creatinine 0.7, glucose 152, A1c 7 point, uric acid 2.2 consistent with SIADH, calcium 9.0, magnesium 2, total bilirubin 1.8, LFTs normal, TSH 2.64, free T41.84, urinalysis shows urine pH 1035 consistent with concentrated urine and 3+ glucose. Urine sodium 29.1. Urine tox screen positive for marijuana. Venous Doppler ultrasound negative for DVT. Knee x-ray showed osteoarthritis. Femur x-ray showed moderate right hip arthritis. Brain MRI showed no MR findings of demyelinating disease//stroke. 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 No medications that can be attributed. Patient noted to have weight loss and significant atrophy and weakness in the right lower extremity. Rule out paraneoplastic syndrome. CT of the chest, abdomen, pelvis ordered to look for underlying malignancy. Plan of care discussed with . Held the statin for now until the right leg weakness diagnosis is made 10/20/2024 patient currently seen in telemetry. Resident at bedside. Sodium dropped to 119. Son at bedside and the student activities director. Patient still having significant right leg weakness. Per neurology question TIA from posterior cerebral artery stenosis. No other neurological symptoms of confusion or headaches. Patient has mild dizziness upon sitting. Decided to start hypertonic saline at 35 mL/h with close monitoring of serum sodium. Salt tablets were held while on 3%.
--- NOTE | 2024-10-20 13:38 | ESPR_ITS ---
<Statement entered by Ranjit Yoon MD - 10/20/24 17:06> Patient was seen and examined at the bedside. Patient is currently receiving salt tablets for hyponatremia however sodium dropped more therefore hypertonic saline was started per nephrology recommendation and will continue sodium every 4 hourly checks. Goal of sodium is 126 after which we will stop hypertonic saline. Patient's echocardiogram read is pending as well. Currently continuing aspirin Plavix and statin. PT recommended no additional PT on discharge. Labs and orders were reviewed. I saw and examined the patient, and I agree with current management stated by Dr Ami MD,PGY1. Plan of care was discussed with the attending physician and resident physician. Disclaimer: Despite multiple revisions, due to the dictation software being used, the document bellow may not be free of grammatical errors including phonetic/typographic errors. However, this does not deter from our commitment to providing health care in the patient's best interest in mind. Dr. Car MD, PGY 2 Documentation for date of: 10/20/24 Subjective Subjective Interval history: No overnight events. Patient seen and examined at bedside. Patient resting comfortably. No new complaints, still notes dizziness only on positional changes. Continue DAPT. Continue monitoring sodium, sodium tabs ordered. Exam Vital Signs Temp Pulse Resp BP Pulse Ox O2 Del Method 97.5 F 83 22 H 130/98 H 100 Room Air 10/20/24 12:00 10/20/24 12:00 10/20/24 12:00 10/20/24 12:00 10/20/24 12:00 10/19/24 23:00 Narrative Exam PE: Gen: Well-developed and well-nourished. HEENT: NCAT, PERRLA, EOMI, MMM, anicteric conjunctivae. CVS: normal S1 and S2. RRR. No M/R/G. Resp: CTA B/L. No rhonchi, rales, crackles or wheezing. Abd: soft, non-tender, non-distended. MSK: Good ROM in BUE & BLE. No edema or rash. Neuro: CN II-XII grossly intact. Strength 5/5 in BUE & LLE. Alert and oriented x3. Right leg 0/5 muscle strength, full strength intact, chronic. Psych: appropriate mood and affect. Objective Labs 10/21/24 05:00 10/21/24 05:00 Labs: Laboratory Results - last 24 hr 10/19/24 10/19/24 10/20/24 14:59 18:32 04:15 WBC 6.0 RBC 4.62 Hgb 13.8 Hct 35.1 L MCV 76 L MCH 29.9 MCHC 39.3 H RDW Std Deviation 34.3 L Plt Count 303 Neut % (Auto) 61 Lymph % (Auto) 30 Andrews % (Auto) 7 Eos % (Auto) 1 Baso % (Auto) 1 Neut # (Auto) 3.7 Lymph # (Auto) 1.8 Andrews # (Auto) 0.4 Eos # (Auto) 0.1 Baso # (Auto) 0.0 Immature Gran # (Auto) 0.01 H Absolute Nucleated RBC 0.00 Immature Gran % 0 Nucleated RBC % 0 Sodium 122 L 122 L 121 L Potassium 4.4 Chloride 90 L Carbon Dioxide 22.5 Anion Gap 9 BUN 12 Creatinine 0.6 Estim Creat Clear Calc 101.4 eGFR > 60 BUN/Creatinine Ratio 20 Glucose 130 H Calculated Osmolality 245 L Calcium 9.2 Corrected Calcium 9.2 Phosphorus 4.5 Magnesium 1.9 Total Bilirubin 2.1 H AST 14 ALT 21 Alkaline Phosphatase 57 Total Protein 6.8 Albumin 4.4 Globulin 2.4 Albumin/Globulin Ratio 1.8 Triglycerides 58 Cholesterol 116 L LDL Cholesterol, Calc 50 HDL Cholesterol 54 Cholesterol/HDL Ratio 2.1 L Quality Measures Quality Measures VTE prophylaxis Assessment & Plan Assessment Current Active Medications: Generic Name Dose Route Start Last Admin Trade Name Freq PRN Reason Stop Dose Admin Acetaminophen 650 mg 10/20/24 09:40 Acetaminophen 325 Mg Tablet PO 11/18/24 02:20 Q6H PRN Fever >100.3 or pain 1-3 Hydrocodone Bitart/Acetaminophen 1 tab 10/19/24 02:21 Hydrocodone/Apap 5/325 Tablet PO 10/24/24 02:20 Q4HR PRN PAIN SCALE 4-10(Mod-Sev Albuterol/Ipratropium 3 ml 10/19/24 02:21 Albuterol/Ipratropium (Duoneb) Rt Noemi 3 Ml Nebu INH 11/18/24 02:20 Q2HR PRN SHORTNESS OF BREATH OR WHEEZE Aspirin 81 mg 10/19/24 08:55 10/20/24 08:26 Aspirin Ec 81 Mg Tabec PO 11/18/24 08:54 81 mg QDAY MEDINA Administration Atorvastatin Calcium 80 mg 10/19/24 21:00 10/19/24 21:17 Atorvastatin Calcium 20 Mg Tablet PO 11/18/24 20:59 80 mg HS MEDINA Administration Clopidogrel Bisulfate 75 mg 10/19/24 08:55 10/20/24 08:26 Clopidogrel Bisulfate 75 Mg Tablet PO 11/18/24 08:54 75 mg QDAY MEDINA Administration Dextrose 50 ml 10/19/24 02:29 Dextrose 50%-Water Inj 50 Ml Syringe IV 11/18/24 02:28 Q15MIN PRN BG <50 OR BG <70 & pt unresponsive Glucagon 1 mg 10/19/24 02:29 Glucagon Inj 1 Mg Vial IM Q15MIN PRN BG <70, and no IV access Heparin Sodium (Porcine) 5,000 unit 10/19/24 02:30 10/20/24 08:23 Heparin Sod Inj 5000 Unit/Ml Vial SC 11/02/24 02:29 5,000 unit BID MEDINA Administration Insulin Human Lispro 0 unit 10/19/24 07:30 10/20/24 11:54 Insulin Lispro (Admelog) 1 Unit/0.01 Ml Unit SC 11/18/24 07:29 4 unit ACHS MEDINA Administration Protocol Magnesium Hydroxide 30 ml 10/20/24 08:04 Milk Of Magnesia Susp 30 Ml Udc PO 11/19/24 08:03 QDAY PRN CONSTIPATION Protocol Meclizine HCl 25 mg 10/19/24 04:35 Meclizine Hcl 25 Mg Tablet PO 11/18/24 04:34 TID PRN DIZZINESS Methimazole 5 mg 10/19/24 09:00 10/20/24 08:26 Methimazole 5 Mg Tablet PO 11/18/24 08:59 5 mg DAILY MEDINA Administration Ondansetron HCl 4 mg 10/19/24 02:21 Ondansetron Inj 2 Mg/Ml Inj 2 Ml IV 11/18/24 02:20 Q6H PRN NAUSEA OR VOMITING Protocol Sennosides 1 tab 10/20/24 08:04 Senna Tablet PO 11/19/24 08:03 QDAY PRN CONSTIPATION Protocol Sodium Chloride 1 gm 10/20/24 10:30 10/20/24 10:43 Sodium Chloride 1 Gm Tablet PO 11/19/24 10:29 1 gm BID MEDINA Administration Plan 58-year-old male with past medical history significant for insulin-dependent diabetes mellitus type 2, hyperthyroidism, scoliosis and chronic musculoskeletal pain presented today with a chief complaint of dizziness. Patient will be admitted for workup and management of stroke rule out, symptomatic hyponatremia and dizziness for investigation. #Severe, symptomatic hypoosmolar hyponatremia Patient only drinks 1 L of water per day. For the past few months has Chronic polyuria and nocturia. Recently was prescribed trazodone. On admission NA 118, OSM 245, CL 88. Sodium improved to 122 with 500 mL bolus, has stayed there over repeat checks. Urine studies: Creatinine 33, sodium 29.1, potassium 32, lower 30.5, FeNa 0.5% Patient sodium stable at 122 for several checks, then down trended to 119. -Discontinued Trazadone as this can cause SIADH -NA checks Q4 hourly -Goal of sodium correction 4-6 mmol in any 24-hour. -Nephrology, Dr Vanegas consulted and closely following the case. Appreciate recommendations -Fluid restriction as per nephro recs, 1200 cc daily -Hypertonic saline IV at 35 mL/h x 500 mL, will stop if sodium reaches 126 #Stroke rule out, potential TIA Patient presented with symptoms of dizziness, NIHSS 4. CT brain negative for acute hemorrhage, mass effect or midline shift. Head and neck CTA positive for occlusion left CHILD WELFARE COUNSELOR branches P1 and P2. MRI showed lack of filling of left posterior cerebral artery. Neurology consulted, recommended admit for stroke with DAPT, statin, stroke workup. Patient has positive orthostatic hypotension. Passed swallow eval. Patient has had no progression in symptoms since admission. -Neuro checks q 4H -Head of bed elevated to 30 degrees -PT/ST referrals placed -Seizure precautions in place -ECHO with bubble study ordered -PRN Acetaminophen 650mg to avoid hyperthermia -PRN Labetaol 10 mg IV Q10 mins for SBP > 220 -Dr Vance consulted, recommendations appreciated -Meclizine 25 Mg p.o. 3 times daily as needed for dizziness -Consider outpatient stenting of left CHILD WELFARE COUNSELOR #Hyperthyroidism Home medication methimazole 5 Mg p.o. daily Patient was scheduled for a thyroid ultrasound today -Resumed home medication methimazole 5 Mg p.o. daily #Insulin-dependent diabetes mellitus type 2 Patient's home medication Lantus 24 units SC daily. No recent A1c on file but reported as 11 by patient. A1c 7.4%. -ISS #Scoliosis #Chronic musculoskeletal pain Patient had right femur, knee and leg pain for the past few months which progressed. Associated with progressive weakness. Currently patient can barely ambulate with the assistance of a walker. On exam, patient is 0/5 proximal right leg strength, foot strength intact. Right femur/knee x-ray showed significant osteoarthritis. -[place] 5 p.o. every 4 hours as needed for pain DVT prophylaxis: Heparin GI prophylaxis: None Diet: Carb consistent Lines: Peripheral IV Code status: Full code Plan of care discussed with senior resident Dr. Yoon PGY?[address] Hills. Rodrick Mueller MD PGY-1 Attending Provider Attestation/Addendum I have examined the patient, reviewed labs and imaging findings, discussed the case with the resident(s), and reviewed entered orders. I agree with the plan of care as outlined in this note, with these additional summaries/recommendations: Patient seen at bedside. No acute overnight events. Patient seen resting comfortably in hospital bed. Discussed imaging findings with patient including that Brain MRI did not reveal acute infraction but did show lack of filling of posterior cerebral artery. CTA head and neck showed occlusion left posterior cerebral artery involving P1 and P2 segments. Neurology following. Continue dual antiplatelet therapy with aspirin and Plavix. Continue high intensity atorvastatin 80 mg p.o. at bedtime. Discussed with patient that he would likely benefit from PCI stenting outpatient if dizziness returns. Patient was also found to have Hypoosmolar hyponatremia with sodium 118 on admission and improved to 122 after IV fluid bolus. Nephrology consulted, recommendations appreciated. Today Sodium has decreased to 121. We will start NaCl tablets 1gm BID and continue to monitor sodium until safe to discharge. Continue methimazole for hyperthyroidism. Pending PT evaluation. Repeat hematology and chemistry panel in AM. Dr. Hills
[2024-10-20 14:50] LABS: Sodium 119 mMol/L (136-145)
[2024-10-20] MEDS: SODIUM CHLORIDE 3%(Hypertonic) 500 ML in PRE-MIXED 1 BAG 30 ML IV (15:47)
--- NOTE | 2024-10-20 16:35 | PC.PT ---
PT eval only. Patient is xI with bed mobility, transfers, and ambulation with a FWW. Patient is safe to ambulate in the halls and to the bathroom with the FWW. RN notified.
[2024-10-20 19:20] LABS: Sodium 118 mMol/L (136-145)
[2024-10-20] MEDS: SENNA TABLET 1 TAB PO (20:59)
[2024-10-20] MEDS: ATORVASTATIN CALCIUM 20 MG TABLET 80 MG PO (20:59)
[2024-10-20 21:54] LABS: Sodium 122 mMol/L (136-145)
--- NOTE | 2024-10-20 23:13 | PD.VPROG1 ---
Telemedicine visit statement This visit was conducted with the use of phone was obtained on 10/20/24 at 2313. Documentation for date of: 10/20/24 Subjective Subjective Interval history: Patient is in ICU. Continue to have dizziness with changes in positioning especially when he sits up. He is pain and restricted range of motion involving the right lower extremity especially at the knee and the hip unchanged. His sodium level is being closely monitored, last checked: 122. Tolerating oral diet well. Virtual exam Vital Signs Temp Pulse Resp BP Pulse Ox O2 Del Method 98.1 F 71 21 H 147/93 H 100 Room Air 10/20/24 20:00 10/20/24 20:00 10/20/24 20:00 10/20/24 20:00 10/20/24 20:00 10/19/24 23:00 Objective Labs 10/20/24 04:15 10/20/24 21:35 Labs: Laboratory Results - last 24 hr 10/20/24 10/20/24 10/20/24 04:15 13:55 18:00 WBC 6.0 RBC 4.62 Hgb 13.8 Hct 35.1 L MCV 76 L MCH 29.9 MCHC 39.3 H RDW Std Deviation 34.3 L Plt Count 303 Neut % (Auto) 61 Lymph % (Auto) 30 [place] % (Auto) 7 Eos % (Auto) 1 Baso % (Auto) 1 Neut # (Auto) 3.7 Lymph # (Auto) 1.8 [place] # (Auto) 0.4 Eos # (Auto) 0.1 Baso # (Auto) 0.0 Immature Gran # (Auto) 0.01 H Absolute Nucleated RBC 0.00 Immature Gran % 0 Nucleated RBC % 0 Sodium 121 L 119 L* 118 L* Potassium 4.4 Chloride 90 L Carbon Dioxide 22.5 Anion Gap 9 BUN 12 Creatinine 0.6 Estim Creat Clear Calc 101.4 eGFR > 60 BUN/Creatinine Ratio 20 Glucose 130 H Calculated Osmolality 245 L Calcium 9.2 Corrected Calcium 9.2 Phosphorus 4.5 Magnesium 1.9 Total Bilirubin 2.1 H AST 14 ALT 21 Alkaline Phosphatase 57 Total Protein 6.8 Albumin 4.4 Globulin 2.4 Albumin/Globulin Ratio 1.8 Triglycerides 58 Cholesterol 116 L LDL Cholesterol, Calc 50 HDL Cholesterol 54 Cholesterol/HDL Ratio 2.1 L 10/20/24 21:35 WBC RBC Hgb Hct MCV MCH MCHC RDW Std Deviation Plt Count Neut % (Auto) Lymph % (Auto) [place] % (Auto) Eos % (Auto) Baso % (Auto) Neut # (Auto) Lymph # (Auto) [place] # (Auto) Eos # (Auto) Baso # (Auto) Immature Gran # (Auto) Absolute Nucleated RBC Immature Gran % Nucleated RBC % Sodium 122 L Potassium Chloride Carbon Dioxide Anion Gap BUN Creatinine Estim Creat Clear Calc eGFR BUN/Creatinine Ratio Glucose Calculated Osmolality Calcium Corrected Calcium Phosphorus Magnesium Total Bilirubin AST ALT Alkaline Phosphatase Total Protein Albumin Globulin Albumin/Globulin Ratio Triglycerides Cholesterol LDL Cholesterol, Calc HDL Cholesterol Cholesterol/HDL Ratio Assessment & Plan Problem List (1) Dizziness: Status: Acute Assessment and plan: Most likely from brainstem TIA/MARKETING AUTOMATION ANALYST stenosis on the left Continue with the dual antiplatelet therapy and statin and aggressive blood sugar and blood pressure management. (2) Acute hyponatremia: Status: Acute Assessment and plan: Continue oral sodium tablets and check sodium closely to avoid rapid correction causing central pontine myelinolysis
[2024-10-21] VITALS (9 sets, daily range): BP systolic 122–132; BP diastolic 76–88; PULSE 73–94; RESP 10–100; TEMP 36.1–37.1; O2SAT 99–100; BMI 19.9; BMI 19.8
[2024-10-21 02:13] LABS: Sodium 124 mMol/L (136-145)
[2024-10-21 06:06] LABS: Basophils % (Auto) 1 % (0-2.5); Eosinophils # (Auto) 0.1 Thou/mm3 (0.0-0.5); Eosinophils % (Auto) 2 % (0-10); Hematocrit 32.3 % (41.0-53.0); Hemoglobin 12.6 g/dL (13.5-16.0); Immature Granulocytes % (Auto) 0 % (0-0); Immature Granulocytes Auto 0.02 Thou/mm3 (0.00-0.00); Lymphocytes # (Auto) 1.7 Thou/mm3 (1.0-4.8); Lymphocytes % (Auto) 30 % (10-50); Mean Corpuscular Hemoglobin 29.8 pg (25.0-35.0); Mean Corpuscular Volume 76 fL (80-100); Monocytes # (Auto) 0.4 Thou/mm3 (0.0-0.8); Monocytes % (Auto) 7 % (0-12); Neutrophils # (Auto) 3.5 Thou/mm3 (1.8-7.7); Neutrophils % (Auto) 61 % (37-80); Nucleated Red Blood Cell % 0 /100 WBC (0); Platelet Count 271 Thou/mm3 (140-440); RDW Standard Deviation 34.7 fL (35.1-43.9); Red Blood Count 4.23 Miln/mm3 (4.50-5.90); White Blood Count 5.7 Thou/mm3 (3.8-10.6)
[2024-10-21 06:45] LABS: Alanine Aminotransferase 24 U/L (10-49); Albumin/Globulin Ratio 1.8 (1.2-2.2); Alkaline Phosphatase 53 U/L (46-116); Anion Gap 8 (7-16); Aspartate Amino Transferase 14 U/L (0-34); BUN/Creatinine Ratio 20 Ratio (12-20); Bilirubin,Total 2.2 mg/dL (0.3-1.2); Blood Urea Nitrogen 12 mg/dL (9-23); Calcium 8.9 mg/dL (8.3-10.6); Calcium (Corrected) 8.9 mg/dL (8.5-10.1); Carbon Dioxide 23.3 mMol/L (20.0-31.0); Chloride 92 mMol/L (98-107); Creatinine (Component) 0.6 mg/dL (0.6-1.3); Estimated Creatinine Clearance 107.8 mL/min (>60); Globulin 2.2 gm/dL (2.3-3.5); Glucose 169 mg/dL (74-106); Magnesium 1.7 mg/dL (1.6-2.6); Osmolality,Calculated 251 (275-295); Phosphorous 4.1 mg/dL (2.4-5.1); Sodium 123 mMol/L (136-145); Total Protein 6.2 gm/dL (5.7-8.2); eGFR > 60 See Note
[2024-10-21] MEDS: INSULIN LISPRO (AdmeLOG) 1 UNIT/0.01 ML UNIT SC ×4 (07:12→20:18)
[2024-10-21] MEDS: METHIMAZOLE 5 MG TABLET PO (08:00)
[2024-10-21] MEDS: ASPIRIN EC 81 MG TABEC PO (08:00)
[2024-10-21] MEDS: CLOPIDOGREL BISULFATE 75 MG TABLET PO (08:00)
[2024-10-21] MEDS: HEPARIN SOD INJ 5000 UNIT/ML VIAL SC ×2 (08:01→20:10)
[2024-10-21 09:22] LABS: Sodium 122 mMol/L (136-145)
--- NOTE | 2024-10-21 09:54 | ESPR_ITS ---
Documentation for date of: 10/21/24 Subjective Subjective Interval history: Horacio Martinez is a 58-year-old male with a past medical history of insulin-dependent type 2 diabetes mellitus, hypothyroidism, scoliosis, and chronic musculoskeletal pain who presented with dizziness. States that this has progressively worsened within the last few days to the point that when he woke up in the morning, he felt extremely dizzy and needed to sit down. Denies headache, vision changes, hearing changes, lightheadedness. Additionally, patient states that he drinks at least 1 L of water per day with associated nocturia (3-4 episodes per night) and polyuria (5-6 episodes per day). In ED, BP 93/58, HR 99, otherwise vitals stable. Na 118, Cl 92, A1c 7.4%, serum osm 245. CT head unremarkable. CTA head/neck showed occlusion of left REDEVELOPMENT SPECIALIST, P1 and P2 segements. MRI/MRA brain showed lack of filling in left REDEVELOPMENT SPECIALIST at beginning of P1. Teleneurology consulted and there were no concerns for acute stroke at the time, and no TNK was given. Admitted for management and work-up for CVA and nephrology consulted for hyponatremia. 10/19: Patient seen and examined at bedside in ED. No acute overnight events. Imaging of right lower extremity showed mild/moderate hip osteoarthritis and advanced tricompartment osteoarthritis of the knee with prominent osteopenia. Patient and spouse made aware of neurological imaging findings. 10/20: Patient seen and examined at bedside in ICU due to overflow in telemetry. Seen sitting up in bed, whereas he was not able to yesterday due to dizziness and does not endorse dizziness today but does endorse nausea after taking salt tablet. No acute overnight events. CT A/P showed moderate osteopenia, thoracic spondylolysis, spondylolesthesis of L5 on S1 with advanced degenerative disease. CT pelvis showed prostatomegaly. Venous doppler of lower extremities negative for DVT. Na noted to drop from 122 to 121 and patient started on salt tablets. 10/21/2024 patient currently seen in telemetry. More alert and awake. 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 Sodium was 124 of 3% was discontinued. This morning the sodium dropped down to 122. Resumed his salt tablets. Clinically stable. Continue with fluid restriction. 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 Review of Systems Review of Systems Narrative Review of Systems: CONSTITUTIONAL: Patient denies any fever, chills positive for weight loss. patient has thyroid problems HEENT: Denies any visual disturbances or hearing problems. CARDIOVASCULAR: Patient denies any chest pain, shortness of breath, swelling in the lower extremities. PULMONARY: Patient denies any shortness of breath, cough. GASTROINTESTINAL: Patient denies any abdominal pain, constipation, nausea, vomiting, diarrhea. GENITOURINARY: Patient denies any urinary symptoms of burning or frequency or hematuria, denies any form in the urine. SKIN: Denies any rash. MUSCULOSKELETAL: significant weakness and unable to move his right lower extremity NEUROLOGICAL: Denies any neurological problems of strokes, seizures or confusion. Denies any memory problems. Gait imbalance, weakness PSYCHIATRIC: Denies any depression or anxiety. LYMPHATICS : No lymphadenopathy Exam Vital Signs Temp Pulse Resp BP Pulse Ox O2 Del Method 37.1 C 80 18 122/81 100 Room Air 10/21/24 08:00 10/21/24 08:00 10/21/24 08:00 10/21/24 08:00 10/21/24 08:00 10/21/24 04:00 Narrative Exam General: AOx3, no acute distress, able to speak full sentences, appears older than stated age HEENT: NC/AT, mucous membranes moist, bilateral sclera anicteric Cardiovascular: regular rate and rhythm, S1/S2 present, no murmurs appreciated Pulmonary: clear to auscultation bilaterally, no rales/rhonchi/wheezes Abdominal: soft, non-tender, non-distended, no rebound/guarding, normal bowel sounds present Musculoskeletal: unable to lift, bend or extend RLE, muscular atrophy in rt lower extremities Skin: warm and dry, intact, no rashes Neuro: CN II-XII intact, no focal deficits Objective Labs 10/22/24 04:30 10/22/24 08:09 Labs: Laboratory Results - last 24 hr 10/20/24 10/20/24 10/20/24 13:55 18:00 21:35 WBC RBC Hgb Hct MCV MCH MCHC RDW Std Deviation Plt Count Neut % (Auto) Lymph % (Auto) [place] % (Auto) Eos % (Auto) Baso % (Auto) Neut # (Auto) Lymph # (Auto) [place] # (Auto) Eos # (Auto) Baso # (Auto) Immature Gran # (Auto) Absolute Nucleated RBC Immature Gran % Nucleated RBC % Sodium 119 L* 118 L* 122 L Potassium Chloride Carbon Dioxide Anion Gap BUN Creatinine Estim Creat Clear Calc eGFR BUN/Creatinine Ratio Glucose Calculated Osmolality Calcium Corrected Calcium Phosphorus Magnesium Total Bilirubin AST ALT Alkaline Phosphatase Total Protein Albumin Globulin Albumin/Globulin Ratio 10/21/24 10/21/24 10/21/24 01:42 05:00 08:50 WBC 5.7 RBC 4.23 L Hgb 12.6 L Hct 32.3 L MCV 76 L MCH 29.8 MCHC 39.0 H RDW Std Deviation 34.7 L Plt Count 271 D Neut % (Auto) 61 Lymph % (Auto) 30 [place] % (Auto) 7 Eos % (Auto) 2 Baso % (Auto) 1 Neut # (Auto) 3.5 Lymph # (Auto) 1.7 [place] # (Auto) 0.4 Eos # (Auto) 0.1 Baso # (Auto) 0.0 Immature Gran # (Auto) 0.02 H Absolute Nucleated RBC 0.00 Immature Gran % 0 Nucleated RBC % 0 Sodium 124 L 123 L 122 L Potassium 4.0 Chloride 92 L Carbon Dioxide 23.3 Anion Gap 8 BUN 12 Creatinine 0.6 Estim Creat Clear Calc 107.8 eGFR > 60 BUN/Creatinine Ratio 20 Glucose 169 H Calculated Osmolality 251 L Calcium 8.9 Corrected Calcium 8.9 Phosphorus 4.1 Magnesium 1.7 Total Bilirubin 2.2 H AST 14 ALT 24 Alkaline Phosphatase 53 Total Protein 6.2 Albumin 4.0 Globulin 2.2 L Albumin/Globulin Ratio 1.8 Assessment & Plan Assessment and plan (1) Dizziness: Status: Acute (2) Acute hyponatremia: Status: Acute Additional Assessment & Plan Additional Plan: Acute hyponatremia-most likely SIADH right leg weakness-questionable stroke. MRI negative. Neurology on the case. Had a long conversation with . Apparently since July patient has not been doing well. He started noticing significant weakness and unable to flex or extend his right lower extremity and since then has been wheelchair-bound. He is bedbound as per . Barely able to walk with a walker due to the right leg weakness. Went and saw his primary care physician and was told he has muscular atrophy although no workup was done. Chart review showed that in September his sodium was low. He stopped taking all his medications in the last 5 days. Home medications include aspirin, Lipitor, Plavix, Megace, methimazole. Hemoglobin 12.5, platelets 295. Sodium 118, potassium 4.4, creatinine 0.7, glucose 152, A1c 7 point, uric acid 2.2 consistent with SIADH, calcium 9.0, magnesium 2, total bilirubin 1.8, LFTs normal, TSH 2.64, free T41.84, urinalysis shows urine pH 1035 consistent with concentrated urine and 3+ glucose. Urine sodium 29.1. Urine tox screen positive for marijuana. Venous Doppler ultrasound negative for DVT. Knee x-ray showed osteoarthritis. Femur x-ray showed moderate right hip arthritis. Brain MRI showed no MR findings of demyelinating disease//stroke. 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 No medications that can be attributed. Patient noted to have weight loss and significant atrophy and weakness in the right lower extremity. Rule out paraneoplastic syndrome. CT of the chest, abdomen, pelvis ordered to look for underlying malignancy. Plan of care discussed with . Held the statin for now until the right leg weakness diagnosis is made 10/20/2024 patient currently seen in telemetry. Resident at bedside. Sodium dropped to 119. Son at bedside and the furniture cleaner. Patient still having significant right leg weakness. Per neurology question TIA from posterior cerebral artery stenosis. No other neurological symptoms of confusion or headaches. Patient has mild dizziness upon sitting. Decided to start hypertonic saline at 35 mL/h with close monitoring of serum sodium. Salt tablets were held while on 3%. 10/21/2024 continue with salt tablets. If sodium drops below 122 will restart 3%. No new neurological symptoms of confusion headaches except mild dizziness. Physical therapy as tolerated. Plan of care discussed with son and primary team.
--- NOTE | 2024-10-21 10:53 | ESPR_ITS ---
Documentation for date of: 10/21/24 Subjective Subjective Interval history: Patient seen examined at bedside. Patient is doing well. No overnight events. Patient is tolerating p.o. intake as adequate urine output and mentation is at baseline. Son was at bedside. All questions and concerns were addressed. Exam Vital Signs Temp Pulse Resp BP Pulse Ox O2 Del Method 98.8 F 80 18 122/81 100 Room Air 10/21/24 08:00 10/21/24 08:00 10/21/24 08:00 10/21/24 08:00 10/21/24 08:00 10/21/24 04:00 Narrative Exam PE: Gen: Well-developed and well-nourished. HEENT: NCAT, PERRLA, EOMI, MMM, anicteric conjunctivae. CVS: normal S1 and S2. RRR. No M/R/G. Resp: CTA B/L. No rhonchi, rales, crackles or wheezing. Abd: soft, non-tender, non-distended. MSK: Good ROM in BUE & BLE. No edema or rash. Neuro: CN II-XII grossly intact. Strength 5/5 in BUE & LLE. Alert and oriented x3. Right leg 0/5 muscle strength, full strength intact, chronic. Psych: appropriate mood and affect. Objective Labs 10/21/24 05:00 10/21/24 13:46 Labs: Laboratory Results - last 24 hr 10/20/24 10/20/24 10/20/24 13:55 18:00 21:35 WBC RBC Hgb Hct MCV MCH MCHC RDW Std Deviation Plt Count Neut % (Auto) Lymph % (Auto) [place] % (Auto) Eos % (Auto) Baso % (Auto) Neut # (Auto) Lymph # (Auto) [place] # (Auto) Eos # (Auto) Baso # (Auto) Immature Gran # (Auto) Absolute Nucleated RBC Immature Gran % Nucleated RBC % Sodium 119 L* 118 L* 122 L Potassium Chloride Carbon Dioxide Anion Gap BUN Creatinine Estim Creat Clear Calc eGFR BUN/Creatinine Ratio Glucose Calculated Osmolality Calcium Corrected Calcium Phosphorus Magnesium Total Bilirubin AST ALT Alkaline Phosphatase Total Protein Albumin Globulin Albumin/Globulin Ratio 10/21/24 10/21/24 10/21/24 01:42 05:00 08:50 WBC 5.7 RBC 4.23 L Hgb 12.6 L Hct 32.3 L MCV 76 L MCH 29.8 MCHC 39.0 H RDW Std Deviation 34.7 L Plt Count 271 D Neut % (Auto) 61 Lymph % (Auto) 30 [place] % (Auto) 7 Eos % (Auto) 2 Baso % (Auto) 1 Neut # (Auto) 3.5 Lymph # (Auto) 1.7 [place] # (Auto) 0.4 Eos # (Auto) 0.1 Baso # (Auto) 0.0 Immature Gran # (Auto) 0.02 H Absolute Nucleated RBC 0.00 Immature Gran % 0 Nucleated RBC % 0 Sodium 124 L 123 L 122 L Potassium 4.0 Chloride 92 L Carbon Dioxide 23.3 Anion Gap 8 BUN 12 Creatinine 0.6 Estim Creat Clear Calc 107.8 eGFR > 60 BUN/Creatinine Ratio 20 Glucose 169 H Calculated Osmolality 251 L Calcium 8.9 Corrected Calcium 8.9 Phosphorus 4.1 Magnesium 1.7 Total Bilirubin 2.2 H AST 14 ALT 24 Alkaline Phosphatase 53 Total Protein 6.2 Albumin 4.0 Globulin 2.2 L Albumin/Globulin Ratio 1.8 Quality Measures Quality Measures VTE prophylaxis Assessment & Plan Assessment Current Active Medications: Generic Name Dose Route Start Last Admin Trade Name Freq PRN Reason Stop Dose Admin Acetaminophen 650 mg 10/20/24 09:40 Acetaminophen 325 Mg Tablet PO 11/18/24 02:20 Q6H PRN Fever >100.3 or pain 1-3 Hydrocodone Bitart/Acetaminophen 1 tab 10/19/24 02:21 Hydrocodone/Apap 5/325 Tablet PO 10/24/24 02:20 Q4HR PRN PAIN SCALE 4-10(Mod-Sev Albuterol/Ipratropium 3 ml 10/19/24 02:21 Albuterol/Ipratropium (Duoneb) Rt Noemi 3 Ml Nebu INH 11/18/24 02:20 Q2HR PRN SHORTNESS OF BREATH OR WHEEZE Aspirin 81 mg 10/19/24 08:55 10/21/24 08:00 Aspirin Ec 81 Mg Tabec PO 11/18/24 08:54 81 mg QDAY MEDINA Administration Atorvastatin Calcium 80 mg 10/19/24 21:00 10/20/24 20:59 Atorvastatin Calcium 20 Mg Tablet PO 11/18/24 20:59 80 mg HS MEDINA Administration Clopidogrel Bisulfate 75 mg 10/19/24 08:55 10/21/24 08:00 Clopidogrel Bisulfate 75 Mg Tablet PO 11/18/24 08:54 75 mg QDAY MEDINA Administration Dextrose 50 ml 10/19/24 02:29 Dextrose 50%-Water Inj 50 Ml Syringe IV 11/18/24 02:28 Q15MIN PRN BG <50 OR BG <70 & pt unresponsive Glucagon 1 mg 10/19/24 02:29 Glucagon Inj 1 Mg Vial IM Q15MIN PRN BG <70, and no IV access Heparin Sodium (Porcine) 5,000 unit 10/19/24 02:30 10/21/24 08:01 Heparin Sod Inj 5000 Unit/Ml Vial SC 11/02/24 02:29 5,000 unit BID MEDINA Administration Insulin Human Lispro 0 unit 10/19/24 07:30 10/21/24 07:12 Insulin Lispro (Admelog) 1 Unit/0.01 Ml Unit SC 11/18/24 07:29 2 unit ACHS MEDINA Administration Protocol Magnesium Hydroxide 30 ml 10/20/24 08:04 Milk Of Magnesia Susp 30 Ml Udc PO 11/19/24 08:03 QDAY PRN CONSTIPATION Protocol Meclizine HCl 25 mg 10/19/24 04:35 Meclizine Hcl 25 Mg Tablet PO 11/18/24 04:34 TID PRN DIZZINESS Methimazole 5 mg 10/19/24 09:00 10/21/24 08:00 Methimazole 5 Mg Tablet PO 11/18/24 08:59 5 mg DAILY MEDINA Administration Ondansetron HCl 4 mg 10/19/24 02:21 Ondansetron Inj 2 Mg/Ml Inj 2 Ml IV 11/18/24 02:20 Q6H PRN NAUSEA OR VOMITING Protocol Sennosides 1 tab 10/20/24 08:04 10/20/24 20:59 Senna Tablet PO 11/19/24 08:03 1 tab QDAY PRN Administration CONSTIPATION Protocol Sodium Chloride 1 gm 10/20/24 22:00 10/20/24 21:11 Sodium Chloride 1 Gm Tablet PO 11/19/24 21:59 1 gm TID MEDINA Administration Plan 58-year-old male with past medical history significant for insulin-dependent diabetes mellitus type 2, hyperthyroidism, scoliosis and chronic musculoskeletal pain presented today with a chief complaint of dizziness. Patient will be admitted for workup and management of stroke rule out, symptomatic hyponatremia and dizziness for investigation. #Severe, symptomatic hypoosmolar hyponatremia Patient only drinks 1 L of water per day. For the past few months has Chronic polyuria and nocturia. Recently was prescribed trazodone. On admission NA 118, OSM 245, CL 88. Sodium improved to 122 with 500 mL bolus, has stayed there over repeat checks. Urine studies: Creatinine 33, sodium 29.1, potassium 32, lower 30.5, FeNa 0.5% Patient sodium stable at 122 for several checks, then down trended to 119. -Discontinued Trazadone as this can cause SIADH -NA checks Q4 hourly -Goal of sodium correction 4-6 mmol in any 24-hour. -Nephrology, Dr Vanegas consulted and closely following the case. Appreciate recommendations -Fluid restriction as per nephro recs, 1200 cc daily -Hypertonic saline IV at 35 mL/h x 500 mL, will stop if sodium reaches 126 #Stroke rule out, potential TIA Patient presented with symptoms of dizziness, NIHSS 4. CT brain negative for acute hemorrhage, mass effect or midline shift. 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 MRI showed lack of filling of left posterior cerebral artery. Neurology consulted, recommended admit for stroke with DAPT, statin, stroke workup. Patient has positive orthostatic hypotension. Passed swallow eval. Patient has had no progression in symptoms since admission. -Neuro checks q 4H -Head of bed elevated to 30 degrees -PT/ST referrals placed -Seizure precautions in place -ECHO with bubble study ordered -PRN Acetaminophen 650mg to avoid hyperthermia -PRN Labetaol 10 mg IV Q10 mins for SBP > 220 -Dr Vance consulted, recommendations appreciated -Meclizine 25 Mg p.o. 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 daily Patient was scheduled for a thyroid ultrasound today -Resumed home medication methimazole 5 Mg p.o. daily #Insulin-dependent diabetes mellitus type 2 Patient's home medication Lantus 24 units SC daily. No recent A1c on file but reported as 11 by patient. A1c 7.4%. -ISS #Scoliosis #Chronic musculoskeletal pain Patient had right femur, knee and leg pain for the past few months which progressed. Associated with progressive weakness. Currently patient can barely ambulate with the assistance of a walker. On exam, patient is 0/5 proximal right leg strength, foot strength intact. Right femur/knee x-ray showed significant osteoarthritis. -[place] 5 p.o. every 4 hours as needed for pain DVT prophylaxis: Heparin GI prophylaxis: None Diet: Carb consistent Lines: Peripheral IV Code status: Full code - Patient's care was discussed with my attending physician, Dr. Reinier Cage MD Internal Medicine PGY-3 Attending Provider Attestation/Addendum I have examined the patient, reviewed labs and imaging findings, discussed the case with the resident(s), and reviewed entered orders. I agree with the plan of care as outlined in this note, with these additional summaries/recommendations: Patient seen at bedside. Overnight sodium decreased and patient was started on hypertonic saline. Sodium 123 this morning. Patient remains asymptomatic from sodium standpoint. We will give additional dose hypertonic 3% 500cc today and continue to trend sodium. Stroke alert was called on admission although acute CVA ruled out. Brain MRI did not reveal acute infraction but did show lack of filling of posterior cerebral artery. CTA head and neck showed occlusion left posterior cerebral artery involving P1 and P2 segments. Neurology following. Continue dual antiplatelet therapy with aspirin and Plavix. Continue high intensity atorvastatin 80 mg p.o. at bedtime. Discussed with patient that he would likely benefit from PCI stenting outpatient if dizziness returns. Continue methimazole for hyperthyroidism. Pending PT evaluation. Repeat hematology and chemistry panel in AM. Dr. Hills
[2024-10-21] MEDS: SODIUM CHLORIDE 1 GM TABLET PO ×2 (13:07→21:03)
[2024-10-21] MEDS: Milk Of Magnesia Susp 30 ML UDC PO (13:15)
[2024-10-21 14:32] LABS: Sodium 123 mMol/L (136-145)
--- NOTE | 2024-10-21 16:08 | PD.VPROG1 ---
Telemedicine visit statement This visit was conducted with the use of interactive audio and video telecommunications system that permits real time communication between the patient and the provider. Patient's verbal consent for virtual visit was obtained on 10/21/24 at 1608. Documentation for date of: 10/21/24 Subjective Subjective Interval history: Patient is in ICU. Continue to have dizziness with changes in positioning especially when he sits up. He is pain and restricted range of motion involving the right lower extremity especially at the knee and the hip unchanged. His sodium level is being closely monitored, last checked: 122. Tolerating oral diet well. Virtual exam Vital Signs Temp Pulse Resp BP Pulse Ox O2 Del Method 97.0 F 94 20 130/76 100 Room Air 10/21/24 12:01 10/21/24 12:01 10/21/24 12:01 10/21/24 12:01 10/21/24 12:01 10/21/24 04:00 Objective Labs 10/22/24 04:30 10/23/24 00:40 Labs: Laboratory Results - last 24 hr 10/20/24 10/20/24 10/21/24 18:00 21:35 01:42 WBC RBC Hgb Hct MCV MCH MCHC RDW Std Deviation Plt Count Neut % (Auto) Lymph % (Auto) [place] % (Auto) Eos % (Auto) Baso % (Auto) Neut # (Auto) Lymph # (Auto) [place] # (Auto) Eos # (Auto) Baso # (Auto) Immature Gran # (Auto) Absolute Nucleated RBC Immature Gran % Nucleated RBC % Sodium 118 L* 122 L 124 L Potassium Chloride Carbon Dioxide Anion Gap BUN Creatinine Estim Creat Clear Calc eGFR BUN/Creatinine Ratio Glucose Calculated Osmolality Calcium Corrected Calcium Phosphorus Magnesium Total Bilirubin AST ALT Alkaline Phosphatase Total Protein Albumin Globulin Albumin/Globulin Ratio 10/21/24 10/21/24 10/21/24 05:00 08:50 13:46 WBC 5.7 RBC 4.23 L Hgb 12.6 L Hct 32.3 L MCV 76 L MCH 29.8 MCHC 39.0 H RDW Std Deviation 34.7 L Plt Count 271 D Neut % (Auto) 61 Lymph % (Auto) 30 [place] % (Auto) 7 Eos % (Auto) 2 Baso % (Auto) 1 Neut # (Auto) 3.5 Lymph # (Auto) 1.7 [place] # (Auto) 0.4 Eos # (Auto) 0.1 Baso # (Auto) 0.0 Immature Gran # (Auto) 0.02 H Absolute Nucleated RBC 0.00 Immature Gran % 0 Nucleated RBC % 0 Sodium 123 L 122 L 123 L Potassium 4.0 Chloride 92 L Carbon Dioxide 23.3 Anion Gap 8 BUN 12 Creatinine 0.6 Estim Creat Clear Calc 107.8 eGFR > 60 BUN/Creatinine Ratio 20 Glucose 169 H Calculated Osmolality 251 L Calcium 8.9 Corrected Calcium 8.9 Phosphorus 4.1 Magnesium 1.7 Total Bilirubin 2.2 H AST 14 ALT 24 Alkaline Phosphatase 53 Total Protein 6.2 Albumin 4.0 Globulin 2.2 L Albumin/Globulin Ratio 1.8 Assessment & Plan Problem List (1) Dizziness: Status: Acute Assessment and plan: Most likely from brainstem TIA/PHOTOVOLTAIC INSTALLATION TECHNICIAN stenosis on the left Continue with the dual antiplatelet therapy and statin and aggressive blood sugar and blood pressure management. (2) Acute hyponatremia: Status: Acute Assessment and plan: Continue oral sodium tablets and check sodium closely to avoid rapid correction causing central pontine myelinolysis
[2024-10-21 18:19] LABS: Sodium 125 mMol/L (136-145)
[2024-10-21] MEDS: SENNA TABLET 1 TAB PO (19:28)
[2024-10-21] MEDS: ATORVASTATIN CALCIUM 20 MG TABLET 80 MG PO (20:04)
[2024-10-21 21:37] LABS: Sodium 125 mMol/L (136-145)
[2024-10-22] VITALS (14 sets, daily range): BP systolic 75–150; BP diastolic 57–91; PULSE 81–105; RESP 16–99; TEMP 36.2–36.9; O2SAT 96–100; BMI 19.7
[2024-10-22 01:42] LABS: Sodium 125 mMol/L (136-145)
[2024-10-22] MEDS: SODIUM CHLORIDE 1 GM TABLET PO ×3 (05:05→21:05)
[2024-10-22 06:43] LABS: Basophils % (Auto) 0 % (0-2.5); Eosinophils # (Auto) 0.1 Thou/mm3 (0.0-0.5); Eosinophils % (Auto) 2 % (0-10); Hematocrit 33.6 % (41.0-53.0); Immature Granulocytes % (Auto) 0 % (0-0); Immature Granulocytes Auto 0.01 Thou/mm3 (0.00-0.00); Lymphocytes # (Auto) 1.7 Thou/mm3 (1.0-4.8); Lymphocytes % (Auto) 29 % (10-50); Mean Corpuscular HGB Conc 38.7 g/dl (31.0-37.0); Mean Corpuscular Volume 78 fL (80-100); Monocytes # (Auto) 0.4 Thou/mm3 (0.0-0.8); Monocytes % (Auto) 7 % (0-12); Neutrophils # (Auto) 3.6 Thou/mm3 (1.8-7.7); Neutrophils % (Auto) 62 % (37-80); Nucleated Red Blood Cell % 0 /100 WBC (0); Platelet Count 287 Thou/mm3 (140-440); RDW Standard Deviation 35.3 fL (35.1-43.9); Red Blood Count 4.33 Miln/mm3 (4.50-5.90); White Blood Count 5.9 Thou/mm3 (3.8-10.6)
[2024-10-22 07:16] LABS: Alanine Aminotransferase 21 U/L (10-49); Albumin, Serum 4.1 gm/dL (3.5-5.0); Albumin/Globulin Ratio 1.8 (1.2-2.2); Alkaline Phosphatase 54 U/L (46-116); Anion Gap 9 (7-16); Aspartate Amino Transferase 14 U/L (0-34); BUN/Creatinine Ratio 22 Ratio (12-20); Blood Urea Nitrogen 11 mg/dL (9-23); Calcium 9.1 mg/dL (8.3-10.6); Calcium (Corrected) 9.1 mg/dL (8.5-10.1); Carbon Dioxide 20.3 mMol/L (20.0-31.0); Chloride 95 mMol/L (98-107); Creatinine (Component) 0.5 mg/dL (0.6-1.3); Globulin 2.3 gm/dL (2.3-3.5); Glucose 142 mg/dL (74-106); Magnesium 1.9 mg/dL (1.6-2.6); Osmolality,Calculated 251 (275-295); Phosphorous 3.5 mg/dL (2.4-5.1); Potassium 4.1 mMol/L (3.4-5.1); Sodium 124 mMol/L (136-145); Total Protein 6.4 gm/dL (5.7-8.2); eGFR > 60 See Note
[2024-10-22] MEDS: ASPIRIN EC 81 MG TABEC PO (08:32)
[2024-10-22] MEDS: METHIMAZOLE 5 MG TABLET PO (08:32)
[2024-10-22] MEDS: HEPARIN SOD INJ 5000 UNIT/ML VIAL SC ×2 (08:32→21:21)
[2024-10-22] MEDS: CLOPIDOGREL BISULFATE 75 MG TABLET PO (08:32)
[2024-10-22] MEDS: INSULIN LISPRO (AdmeLOG) 1 UNIT/0.01 ML UNIT SC ×4 (08:32→21:11)
[2024-10-22 08:55] LABS: Sodium 125 mMol/L (136-145)
--- NOTE | 2024-10-22 09:13 | PC.SS ---
Patient Horacio Martinez is a 58 Year old male admitted for Weakness/Dizziness. SS met with patient at bedside to discuss discharge plan and complete initial assessment. Patient was able to verify demographic information. Patient appeared to be alert and oriented. Patient reports he lives at home with his , Kirstin Borja who he reports is his surrogate decision maker, [phone]. Patient reports that he has been utilizing a FWW to assist with ambulation 2 days prior to admission due to feeling weak,l however prior to that he was ambulating independently. Patient is able to complete all ADL's independently. Choice of pharmacy is [facility] in [place]. PCP is Didi Atwood. At time of discharge patient will return home, Family will provide transportation. Next of Kin, , Kirstin Borja Discharge Plan: Home
--- NOTE | 2024-10-22 10:27 | PD.NEPHPROG ---
Documentation for date of: 10/22/24 Subjective Subjective Interval history: Horacio Martinez is a 58-year-old male with a past medical history of insulin-dependent type 2 diabetes mellitus, hypothyroidism, scoliosis, and chronic musculoskeletal pain who presented with dizziness. States that this has progressively worsened within the last few days to the point that when he woke up in the morning, he felt extremely dizzy and needed to sit down. Denies headache, vision changes, hearing changes, lightheadedness. Additionally, patient states that he drinks at least 1 L of water per day with associated nocturia (3-4 episodes per night) and polyuria (5-6 episodes per day). In ED, BP 93/58, HR 99, otherwise vitals stable. Na 118, Cl 92, A1c 7.4%, serum osm 245. CT head unremarkable. CTA head/neck showed occlusion of left FRONT END ENGINEER, P1 and P2 segements. MRI/MRA brain showed lack of filling in left FRONT END ENGINEER at beginning of P1. Teleneurology consulted and there were no concerns for acute stroke at the time, and no TNK was given. Admitted for management and work-up for CVA and nephrology consulted for hyponatremia. 10/19: Patient seen and examined at bedside in ED. No acute overnight events. Imaging of right lower extremity showed mild/moderate hip osteoarthritis and advanced tricompartment osteoarthritis of the knee with prominent osteopenia. Patient and spouse made aware of neurological imaging findings. 10/20: Patient seen and examined at bedside in ICU due to overflow in telemetry. Seen sitting up in bed, whereas he was not able to yesterday due to dizziness and does not endorse dizziness today but does endorse nausea after taking salt tablet. No acute overnight events. CT A/P showed moderate osteopenia, thoracic spondylolysis, spondylolesthesis of L5 on S1 with advanced degenerative disease. CT pelvis showed prostatomegaly. Venous doppler of lower extremities negative for DVT. Na noted to drop from 122 to 121 and patient started on salt tablets. 10/22/2024 patient currently seen in telemetry. More alert and awake. Son at bedside and is sharepoint developer. Sodium was 125-currently on salt tablets. Clinically stable. Continue with fluid restriction. 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 If sodium greater than 126 patient can be discharged home on salt tablets. Review of Systems Review of Systems Narrative Review of Systems: CONSTITUTIONAL: Patient denies any fever, chills positive for weight loss. patient has thyroid problems HEENT: Denies any visual disturbances or hearing problems. CARDIOVASCULAR: Patient denies any chest pain, shortness of breath, swelling in the lower extremities. PULMONARY: Patient denies any shortness of breath, cough. GASTROINTESTINAL: Patient denies any abdominal pain, constipation, nausea, vomiting, diarrhea. GENITOURINARY: Patient denies any urinary symptoms of burning or frequency or hematuria, denies any form in the urine. SKIN: Denies any rash. MUSCULOSKELETAL: significant weakness and unable to move his right lower extremity NEUROLOGICAL: Denies any neurological problems of strokes, seizures or confusion. Denies any memory problems. Gait imbalance, weakness PSYCHIATRIC: Denies any depression or anxiety. LYMPHATICS : No lymphadenopathy Exam Vital Signs Temp Pulse Resp BP Pulse Ox O2 Del Method 36.5 C 81 16 150/91 H 99 Room Air 10/22/24 00:00 10/22/24 09:03 10/22/24 09:03 10/22/24 04:00 10/22/24 09:03 10/22/24 04:00 Narrative Exam General: AOx3, no acute distress, able to speak full sentences, appears older than stated age HEENT: NC/AT, mucous membranes moist, bilateral sclera anicteric Cardiovascular: regular rate and rhythm, S1/S2 present, no murmurs appreciated Pulmonary: clear to auscultation bilaterally, no rales/rhonchi/wheezes Abdominal: soft, non-tender, non-distended, no rebound/guarding, normal bowel sounds present Musculoskeletal: unable to lift, bend or extend RLE, muscular atrophy in rt lower extremities Skin: warm and dry, intact, no rashes Neuro: CN II-XII intact, no focal deficits Objective Labs 10/22/24 04:30 10/22/24 16:34 Labs: Laboratory Results - last 24 hr 10/21/24 10/21/24 10/21/24 13:46 17:46 21:16 WBC RBC Hgb Hct MCV MCH MCHC RDW Std Deviation Plt Count Neut % (Auto) Lymph % (Auto) [place] % (Auto) Eos % (Auto) Baso % (Auto) Neut # (Auto) Lymph # (Auto) [place] # (Auto) Eos # (Auto) Baso # (Auto) Immature Gran # (Auto) Absolute Nucleated RBC Immature Gran % Nucleated RBC % Sodium 123 L 125 L 125 L Potassium Chloride Carbon Dioxide Anion Gap BUN Creatinine Estim Creat Clear Calc eGFR BUN/Creatinine Ratio Glucose Calculated Osmolality Calcium Corrected Calcium Phosphorus Magnesium Total Bilirubin AST ALT Alkaline Phosphatase Total Protein Albumin Globulin Albumin/Globulin Ratio 10/22/24 10/22/24 10/22/24 01:20 04:30 08:09 WBC 5.9 RBC 4.33 L Hgb 13.0 L Hct 33.6 L MCV 78 L MCH 30.0 MCHC 38.7 H RDW Std Deviation 35.3 Plt Count 287 Neut % (Auto) 62 Lymph % (Auto) 29 [place] % (Auto) 7 Eos % (Auto) 2 Baso % (Auto) 0 Neut # (Auto) 3.6 Lymph # (Auto) 1.7 [place] # (Auto) 0.4 Eos # (Auto) 0.1 Baso # (Auto) 0.0 Immature Gran # (Auto) 0.01 H Absolute Nucleated RBC 0.00 Immature Gran % 0 Nucleated RBC % 0 Sodium 125 L 124 L 125 L Potassium 4.1 Chloride 95 L Carbon Dioxide 20.3 Anion Gap 9 BUN 11 Creatinine 0.5 L Estim Creat Clear Calc 128.0 eGFR > 60 BUN/Creatinine Ratio 22 H Glucose 142 H Calculated Osmolality 251 L Calcium 9.1 Corrected Calcium 9.1 Phosphorus 3.5 Magnesium 1.9 Total Bilirubin 2.0 H AST 14 ALT 21 Alkaline Phosphatase 54 Total Protein 6.4 Albumin 4.1 Globulin 2.3 Albumin/Globulin Ratio 1.8 Assessment & Plan Assessment and plan (1) Dizziness: Status: Acute (2) Acute hyponatremia: Status: Acute Additional Assessment & Plan Additional Plan: Acute hyponatremia-most likely SIADH right leg weakness-questionable stroke. MRI negative. Neurology on the case. Had a long conversation with . Apparently since July patient has not been doing well. He started noticing significant weakness and unable to flex or extend his right lower extremity and since then has been wheelchair-bound. He is bedbound as per . Barely able to walk with a walker due to the right leg weakness. Went and saw his primary care physician and was told he has muscular atrophy although no workup was done. Chart review showed that in September his sodium was low. He stopped taking all his medications in the last 5 days. Home medications include aspirin, Lipitor, Plavix, Megace, methimazole. Hemoglobin 12.5, platelets 295. Sodium 118, potassium 4.4, creatinine 0.7, glucose 152, A1c 7 point, uric acid 2.2 consistent with SIADH, calcium 9.0, magnesium 2, total bilirubin 1.8, LFTs normal, TSH 2.64, free T41.84, urinalysis shows urine pH 1035 consistent with concentrated urine and 3+ glucose. Urine sodium 29.1. Urine tox screen positive for marijuana. Venous Doppler ultrasound negative for DVT. Knee x-ray showed osteoarthritis. Femur x-ray showed moderate right hip arthritis. Brain MRI showed no MR findings of demyelinating disease//stroke. 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 No medications that can be attributed. Patient noted to have weight loss and significant atrophy and weakness in the right lower extremity. Rule out paraneoplastic syndrome. CT of the chest, abdomen, pelvis ordered to look for underlying malignancy. Plan of care discussed with . Held the statin for now until the right leg weakness diagnosis is made 10/20/2024 patient currently seen in telemetry. Resident at bedside. Sodium dropped to 119. Son at bedside and the child psychology teacher. Patient still having significant right leg weakness. Per neurology question TIA from posterior cerebral artery stenosis. No other neurological symptoms of confusion or headaches. Patient has mild dizziness upon sitting. Decided to start hypertonic saline at 35 mL/h with close monitoring of serum sodium. Salt tablets were held while on 3%. 10/22/2024 continue with salt tablets. Sodium 125. No new neurological symptoms of confusion headaches except mild dizziness. Physical therapy as tolerated. Plan of care discussed with son and primary team.
--- NOTE | 2024-10-22 10:30 | CHAP ---
Patient was visited by the Spiritual Care Volunteer who prayed for them. (Volunteer was in the hospital from c10:10-11:20).
--- NOTE | 2024-10-22 14:31 | ESPR_ITS ---
Documentation for date of: 10/22/24 Subjective Subjective Interval history: No overnight events. Patient seen and examined at bedside. Patient feels overall well, still complains of positional dizziness. Denies fevers, chills, chest pain, shortness of breath, nausea, vomiting. Repeat orthostatics. Continue salt tabs 3 times daily, continue sodium checks. Exam Vital Signs Temp Pulse Resp BP Pulse Ox O2 Del Method 98.5 F 98 19 90/63 100 Room Air 10/22/24 12:00 10/22/24 12:00 10/22/24 12:00 10/22/24 12:10/22/24 12:10/22/24 08:01 Narrative Exam PE: Gen: Well-developed and well-nourished. HEENT: NCAT, PERRLA, EOMI, MMM, anicteric conjunctivae. CVS: normal S1 and S2. RRR. No M/R/G. Resp: CTA B/L. No rhonchi, rales, crackles or wheezing. Abd: soft, non-tender, non-distended. MSK: Good ROM in BUE & BLE. No edema or rash. Neuro: CN II-XII grossly intact. Strength 5/5 in BUE & LLE. Alert and oriented x3. Right leg 0/5 muscle strength, foot strength intact, chronic. Psych: appropriate mood and affect. Objective Labs 10/22/24 04:30 10/22/24 16:34 Labs: Laboratory Results - last 24 hr 10/21/24 10/21/24 10/21/24 13:46 17:46 21:16 WBC RBC Hgb Hct MCV MCH MCHC RDW Std Deviation Plt Count Neut % (Auto) Lymph % (Auto) [place] % (Auto) Eos % (Auto) Baso % (Auto) Neut # (Auto) Lymph # (Auto) [place] # (Auto) Eos # (Auto) Baso # (Auto) Immature Gran # (Auto) Absolute Nucleated RBC Immature Gran % Nucleated RBC % Sodium 123 L 125 L 125 L Potassium Chloride Carbon Dioxide Anion Gap BUN Creatinine Estim Creat Clear Calc eGFR BUN/Creatinine Ratio Glucose Calculated Osmolality Calcium Corrected Calcium Phosphorus Magnesium Total Bilirubin AST ALT Alkaline Phosphatase Total Protein Albumin Globulin Albumin/Globulin Ratio 10/22/24 10/22/24 10/22/24 01:20 04:30 08:09 WBC 5.9 RBC 4.33 L Hgb 13.0 L Hct 33.6 L MCV 78 L MCH 30.0 MCHC 38.7 H RDW Std Deviation 35.3 Plt Count 287 Neut % (Auto) 62 Lymph % (Auto) 29 [place] % (Auto) 7 Eos % (Auto) 2 Baso % (Auto) 0 Neut # (Auto) 3.6 Lymph # (Auto) 1.7 [place] # (Auto) 0.4 Eos # (Auto) 0.1 Baso # (Auto) 0.0 Immature Gran # (Auto) 0.01 H Absolute Nucleated RBC 0.00 Immature Gran % 0 Nucleated RBC % 0 Sodium 125 L 124 L 125 L Potassium 4.1 Chloride 95 L Carbon Dioxide 20.3 Anion Gap 9 BUN 11 Creatinine 0.5 L Estim Creat Clear Calc 128.0 eGFR > 60 BUN/Creatinine Ratio 22 H Glucose 142 H Calculated Osmolality 251 L Calcium 9.1 Corrected Calcium 9.1 Phosphorus 3.5 Magnesium 1.9 Total Bilirubin 2.0 H AST 14 ALT 21 Alkaline Phosphatase 54 Total Protein 6.4 Albumin 4.1 Globulin 2.3 Albumin/Globulin Ratio 1.8 Quality Measures Quality Measures VTE prophylaxis Assessment & Plan Assessment Current Active Medications: Generic Name Dose Route Start Last Admin Trade Name Freq PRN Reason Stop Dose Admin Acetaminophen 650 mg 10/20/24 09:40 Acetaminophen 325 Mg Tablet PO 11/18/24 02:20 Q6H PRN Fever >100.3 or pain 1-3 Hydrocodone Bitart/Acetaminophen 1 tab 10/19/24 02:21 Hydrocodone/Apap 5/325 Tablet PO 10/24/24 02:20 Q4HR PRN PAIN SCALE 4-10(Mod-Sev Albuterol/Ipratropium 3 ml 10/19/24 02:21 Albuterol/Ipratropium (Duoneb) Rt Noemi 3 Ml Nebu INH 11/18/24 02:20 Q2HR PRN SHORTNESS OF BREATH OR WHEEZE Aspirin 81 mg 10/19/24 08:55 10/22/24 08:32 Aspirin Ec 81 Mg Tabec PO 11/18/24 08:54 81 mg QDAY MEDINA Administration Atorvastatin Calcium 80 mg 10/19/24 21:00 10/21/24 20:04 Atorvastatin Calcium 20 Mg Tablet PO 11/18/24 20:59 80 mg HS MEDINA Administration Clopidogrel Bisulfate 75 mg 10/19/24 08:55 10/22/24 08:32 Clopidogrel Bisulfate 75 Mg Tablet PO 11/18/24 08:54 75 mg QDAY MEDINA Administration Dextrose 50 ml 10/19/24 02:29 Dextrose 50%-Water Inj 50 Ml Syringe IV 11/18/24 02:28 Q15MIN PRN BG <50 OR BG <70 & pt unresponsive Glucagon 1 mg 10/19/24 02:29 Glucagon Inj 1 Mg Vial IM Q15MIN PRN BG <70, and no IV access Heparin Sodium (Porcine) 5,000 unit 10/19/24 02:30 10/22/24 08:32 Heparin Sod Inj 5000 Unit/Ml Vial SC 11/02/24 02:29 5,000 unit BID MEDINA Administration Insulin Human Lispro 0 unit 10/19/24 07:30 10/22/24 12:06 Insulin Lispro (Admelog) 1 Unit/0.01 Ml Unit SC 11/18/24 07:29 4 unit ACHS MEDINA Administration Protocol Magnesium Hydroxide 30 ml 10/20/24 08:04 10/21/24 13:15 Milk Of Magnesia Susp 30 Ml Udc PO 11/19/24 08:03 30 ml QDAY PRN Administration CONSTIPATION Protocol Meclizine HCl 25 mg 10/19/24 04:35 Meclizine Hcl 25 Mg Tablet PO 11/18/24 04:34 TID PRN DIZZINESS Methimazole 5 mg 10/19/24 09:00 10/22/24 08:32 Methimazole 5 Mg Tablet PO 11/18/24 08:59 5 mg DAILY MEDINA Administration Ondansetron HCl 4 mg 10/19/24 02:21 Ondansetron Inj 2 Mg/Ml Inj 2 Ml IV 11/18/24 02:20 Q6H PRN NAUSEA OR VOMITING Protocol Sennosides 1 tab 10/20/24 08:04 10/21/24 19:28 Senna Tablet PO 11/19/24 08:03 1 tab QDAY PRN Administration CONSTIPATION Protocol Sodium Chloride 1 gm 10/20/24 22:00 10/22/24 05:05 Sodium Chloride 1 Gm Tablet PO 11/19/24 21:59 1 gm TID MEDINA Administration Plan 58-year-old male with past medical history significant for insulin-dependent diabetes mellitus type 2, hyperthyroidism, scoliosis and chronic musculoskeletal pain presented today with a chief complaint of dizziness. Patient will be admitted for workup and management of stroke rule out, symptomatic hyponatremia and dizziness for investigation. #Severe, symptomatic hypoosmolar hyponatremia Patient only drinks 1 L of water per day. For the past few months has Chronic polyuria and nocturia. Recently was prescribed trazodone. On admission NA 118, OSM 245, CL 88. Sodium improved to 122 with 500 mL bolus, has stayed there over repeat checks. Urine studies: Creatinine 33, sodium 29.1, potassium 32, lower 30.5, FeNa 0.5% Patient sodium stable at 122 for several checks, then down trended to 119. Patient received 1 L hypertonic saline IV at 35 mL/h. Sodium increased to 125. -Discontinued Trazadone as this can cause SIADH -NA checks Q4 hourly -Goal of sodium correction 4-6 mmol in any 24-hour. -Nephrology, Dr Vanegas consulted and closely following the case. Appreciate recommendations -Fluid restriction as per nephro recs, 1200 cc daily -Salt tabs 1 g 3 times daily -Plan to DC if sodium stable at 126 #Stroke rule out, potential TIA Patient presented with symptoms of dizziness, NIHSS 4. CT brain negative for acute hemorrhage, mass effect or midline shift. Head and neck CTA positive for occlusion left RIVER DRIVER branches P1 and P2. MRI showed lack of filling of left posterior cerebral artery. Neurology consulted, recommended admit for stroke with DAPT, statin, stroke workup. Patient has positive orthostatic hypotension. Passed swallow eval. Patient has had no progression in symptoms since admission. Patient cleared for diet by speech therapy. PT recommending FWW. Echo with bubble study unremarkable. -Neuro checks q 4H -Head of bed elevated to 30 degrees -Seizure precautions in place -PRN Acetaminophen 650mg to avoid hyperthermia -PRN Labetaol 10 mg IV Q10 mins for SBP > 220 -Dr Vance consulted, recommendations appreciated -Meclizine 25 Mg p.o. 3 times daily as needed for dizziness -Consider outpatient stenting of left RIVER DRIVER #Hyperthyroidism Home medication methimazole 5 Mg p.o. daily Patient was scheduled for a thyroid ultrasound today -Resumed home medication methimazole 5 Mg p.o. daily #Insulin-dependent diabetes mellitus type 2 Patient's home medication Lantus 24 units SC daily. No recent A1c on file but reported as 11 by patient. A1c 7.4%. -ISS #Scoliosis #Chronic musculoskeletal pain Patient had right femur, knee and leg pain for the past few months which progressed. Associated with progressive weakness. Currently patient can barely ambulate with the assistance of a walker. On exam, patient is 0/5 proximal right leg strength, foot strength intact. Right femur/knee x-ray showed significant osteoarthritis. -[place] 5 p.o. every 4 hours as needed for pain DVT prophylaxis: Heparin GI prophylaxis: None Diet: Carb consistent Lines: Peripheral IV Code status: Full code Patient's care was discussed with attending Dr. Hills. Rodrick Mueller MD PGY?1 Attending Provider Attestation/Addendum I have examined the patient, reviewed labs and imaging findings, discussed the case with the resident(s), and reviewed entered orders. I agree with the plan of care as outlined in this note, with these additional summaries/recommendations: Patient seen at bedside. No acute overnight events. Discussed with patient that his sodium is 125 today and we will continue salt tablets. We will give hypertonic saline again if sodium drops below 122. 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 Continue fluid restriction. There was concern for paraneoplastic syndrome given patients RLE atrophy although CT C/A/P did not reveal any masses. We will continue to trend sodium and monitor closely. On admission Stroke alert was called although acute CVA ruled out. Possible patient had TIA vs intracranial arthrosclerosis. Brain MRI did not reveal acute infraction but did show lack of filling of posterior cerebral artery. CTA head and neck showed occlusion left posterior cerebral artery involving P1 and P2 segments. Neurology following. Continue dual antiplatelet therapy with aspirin and Plavix. Continue high intensity atorvastatin 80 mg p.o. at bedtime. Discussed with patient that he would likely benefit from PCI stenting outpatient if dizziness returns. Continue methimazole for hyperthyroidism. Repeat hematology and chemistry panel in AM. Dr. Hills
[2024-10-22 14:45] LABS: Sodium 124 mMol/L (136-145)
[2024-10-22 17:13] LABS: Sodium 125 mMol/L (136-145)
[2024-10-22] MEDS: SENNA TABLET 1 TAB PO (21:04)
[2024-10-22] MEDS: ATORVASTATIN CALCIUM 20 MG TABLET 80 MG PO (21:04)
[2024-10-22] MEDS: Milk Of Magnesia Susp 30 ML UDC PO (21:05)
[2024-10-22 21:24] LABS: Sodium 125 mMol/L (136-145)
--- NOTE | 2024-10-22 23:10 | ESPR_ITS ---
Documentation for date of: 10/22/24 Subjective Subjective Interval history: 58yo man with past medical history significant for poorly controlled DM2, HTN, and diabetic neuropathy, who presents today with a few days of lightheadedness that is worse with sitting up or standing, and per , acutely worsened today. Pt denies room spinning sensation and endorses lightheadedness only, and also feels generally weak. He also reports that he has had right leg weakness since July of 2024 from advanced OA of the hip and knee. Patient was seen in ICU today with his at the bedside. Continues to have some dizziness but not as bad has not been bad as when he got admitted. He is nauseated when he is taking the sodium tablets and water. Exam - Neurology Vital Signs Temp Pulse Resp BP Pulse Ox O2 Del Method 97.1 F 96 19 107/68 99 Room Air 10/22/24 20:00 10/22/24 20:00 10/22/24 20:00 10/22/24 20:00 10/22/24 20:00 10/22/24 20:00 Narrative Exam GENERAL APPEARANCE: Well hydrated, well-nourished in no acute distress. HEENT: Normocephalic, atraumatic, extraocular movements intact. Pupils: Equal reacting to light and accommodation, no nystagmus NECK: Supple, no JVD or bruits. CARDIOVASULAR: Heart: S1, S2 heard, regular without S3-S4 or murmur no rubs or gallops. LUNGS/CHEST: Clear to auscultation bilaterally. No rails, rhonchi, or wheezing. Normal inspection. ABDOMEN: Soft, nontender, with normal bowel sounds. No pulsatile masses. No rebound, rigidity, or guarding. Normal inspection and palpation. EXTREMITIES: Normal inspection and palpation. No edema, clubbing or cyanosis. SKIN: Warm and dry without rashes. Normal inspection. MUSCULOSKELETAL: No cervical, thoracic, lumbar or midline bony tenderness. Normal inspection. NEURO: Alert, awake and oriented x3. Cranial nerves: II through XII grossly intact. Speech and language: Normal with no dysarthria or dysphasia. Motor system: Tone and bulk: Normal: Strength: 5 out of 5 in all 4 extremities except the right LE as at baseline; No pronator drift noted. Deep tendon reflexes: 2+ bilaterally symmetrical. Plantar reflex: Downgoing bilaterally. Sensory system: Intact to all modalities of sensation bilaterally. Coordination: Intact to [id number] and [id number] test bilaterally. No ataxia, no dysmetria, or dysdiadochokinesia noted. No intention tremors noted. Gait: could not be tested from right LE weakness and Restricted ROM as at baseline. No signs of meningeal irritation noted. PSYCHIATRIC: Normal mood and affect. Objective Labs 10/22/24 04:30 10/23/24 00:40 Labs: Laboratory Results - last 24 hr 10/22/24 10/22/24 10/22/24 01:20 04:30 08:09 WBC 5.9 RBC 4.33 L Hgb 13.0 L Hct 33.6 L MCV 78 L MCH 30.0 MCHC 38.7 H RDW Std Deviation 35.3 Plt Count 287 Neut % (Auto) 62 Lymph % (Auto) 29 [place] % (Auto) 7 Eos % (Auto) 2 Baso % (Auto) 0 Neut # (Auto) 3.6 Lymph # (Auto) 1.7 [place] # (Auto) 0.4 Eos # (Auto) 0.1 Baso # (Auto) 0.0 Immature Gran # (Auto) 0.01 H Absolute Nucleated RBC 0.00 Immature Gran % 0 Nucleated RBC % 0 Sodium 125 L 124 L 125 L Potassium 4.1 Chloride 95 L Carbon Dioxide 20.3 Anion Gap 9 BUN 11 Creatinine 0.5 L Estim Creat Clear Calc 128.0 eGFR > 60 BUN/Creatinine Ratio 22 H Glucose 142 H Calculated Osmolality 251 L Calcium 9.1 Corrected Calcium 9.1 Phosphorus 3.5 Magnesium 1.9 Total Bilirubin 2.0 H AST 14 ALT 21 Alkaline Phosphatase 54 Total Protein 6.4 Albumin 4.1 Globulin 2.3 Albumin/Globulin Ratio 1.8 10/22/24 10/22/24 10/22/24 13:30 16:34 20:41 WBC RBC Hgb Hct MCV MCH MCHC RDW Std Deviation Plt Count Neut % (Auto) Lymph % (Auto) [place] % (Auto) Eos % (Auto) Baso % (Auto) Neut # (Auto) Lymph # (Auto) [place] # (Auto) Eos # (Auto) Baso # (Auto) Immature Gran # (Auto) Absolute Nucleated RBC Immature Gran % Nucleated RBC % Sodium 124 L 125 L 125 L Potassium Chloride Carbon Dioxide Anion Gap BUN Creatinine Estim Creat Clear Calc eGFR BUN/Creatinine Ratio Glucose Calculated Osmolality Calcium Corrected Calcium Phosphorus Magnesium Total Bilirubin AST ALT Alkaline Phosphatase Total Protein Albumin Globulin Albumin/Globulin Ratio Assessment & Plan Assessment and plan (1) Dizziness: Status: Acute (2) Acute hyponatremia: Status: Acute Assessment and plan: noted Nephrology is on board. (3) Dizziness: Status: Acute Assessment and plan: could be from hyponatremia/Brainstem TIA from VENEER SHEET REPAIRER stenosis Needs aggressive medical mgt with contorlling BG, Lipids and BP control, dual antiplatelet therapy for life. Endovascular intervention for VENEER SHEET REPAIRER stenting if needed as an outpatient.
[2024-10-23] VITALS (7 sets, daily range): BP systolic 90–131; BP diastolic 69–84; PULSE 80–101; RESP 16–24; TEMP 36.6–37.3; O2SAT 98–99; BMI 19.7
[2024-10-23 01:20] LABS: Sodium 128 mMol/L (136-145)
[2024-10-23] MEDS: SODIUM CHLORIDE 1 GM TABLET PO (06:00)
[2024-10-23 06:26] LABS: Basophils % (Auto) 1 % (0-2.5); Eosinophils # (Auto) 0.1 Thou/mm3 (0.0-0.5); Eosinophils % (Auto) 2 % (0-10); Hematocrit 32.8 % (41.0-53.0); Hemoglobin 12.5 g/dL (13.5-16.0); Immature Granulocytes % (Auto) 0 % (0-0); Immature Granulocytes Auto 0.01 Thou/mm3 (0.00-0.00); Lymphocytes # (Auto) 1.7 Thou/mm3 (1.0-4.8); Lymphocytes % (Auto) 33 % (10-50); Mean Corpuscular HGB Conc 38.1 g/dl (31.0-37.0); Mean Corpuscular Volume 79 fL (80-100); Monocytes # (Auto) 0.4 Thou/mm3 (0.0-0.8); Monocytes % (Auto) 7 % (0-12); Neutrophils # (Auto) 3.1 Thou/mm3 (1.8-7.7); Neutrophils % (Auto) 58 % (37-80); Nucleated Red Blood Cell % 0 /100 WBC (0); Platelet Count 283 Thou/mm3 (140-440); RDW Standard Deviation 36.2 fL (35.1-43.9); Red Blood Count 4.16 Miln/mm3 (4.50-5.90); White Blood Count 5.3 Thou/mm3 (3.8-10.6)
[2024-10-23 06:51] LABS: Alanine Aminotransferase 26 U/L (10-49); Albumin/Globulin Ratio 1.7 (1.2-2.2); Alkaline Phosphatase 54 U/L (46-116); Anion Gap 7 (7-16); Aspartate Amino Transferase 16 U/L (0-34); BUN/Creatinine Ratio 23 Ratio (12-20); Bilirubin,Total 1.5 mg/dL (0.3-1.2); Blood Urea Nitrogen 14 mg/dL (9-23); Calcium 8.8 mg/dL (8.3-10.6); Calcium (Corrected) 8.8 mg/dL (8.5-10.1); Carbon Dioxide 22.8 mMol/L (20.0-31.0); Chloride 97 mMol/L (98-107); Creatinine (Component) 0.6 mg/dL (0.6-1.3); Estimated Creatinine Clearance 106.6 mL/min (>60); Globulin 2.4 gm/dL (2.3-3.5); Glucose 159 mg/dL (74-106); Osmolality,Calculated 258 (275-295); Phosphorous 3.7 mg/dL (2.4-5.1); Potassium 4.2 mMol/L (3.4-5.1); Sodium 127 mMol/L (136-145); Total Protein 6.4 gm/dL (5.7-8.2); eGFR > 60 See Note
[2024-10-23] MEDS: INSULIN LISPRO (AdmeLOG) 1 UNIT/0.01 ML UNIT SC ×2 (07:44→12:01)
[2024-10-23] MEDS: CLOPIDOGREL BISULFATE 75 MG TABLET PO (08:14)
[2024-10-23] MEDS: METHIMAZOLE 5 MG TABLET PO (08:14)
[2024-10-23] MEDS: HEPARIN SOD INJ 5000 UNIT/ML VIAL SC (08:14)
[2024-10-23] MEDS: ASPIRIN EC 81 MG TABEC PO (08:14)
[2024-10-23 09:10] LABS: Sodium 127 mMol/L (136-145)
--- NOTE | 2024-10-23 09:25 | PD.NEPHPROG ---
Documentation for date of: 10/23/24 Subjective Subjective Interval history: Horacio Martinez is a 58-year-old male with a past medical history of insulin-dependent type 2 diabetes mellitus, hypothyroidism, scoliosis, and chronic musculoskeletal pain who presented with dizziness. States that this has progressively worsened within the last few days to the point that when he woke up in the morning, he felt extremely dizzy and needed to sit down. Denies headache, vision changes, hearing changes, lightheadedness. Additionally, patient states that he drinks at least 1 L of water per day with associated nocturia (3-4 episodes per night) and polyuria (5-6 episodes per day). In ED, BP 93/58, HR 99, otherwise vitals stable. Na 118, Cl 92, A1c 7.4%, serum osm 245. CT head unremarkable. CTA head/neck showed occlusion of left TERRITORY SERVICE REPRESENTATIVE, P1 and P2 segements. MRI/MRA brain showed lack of filling in left TERRITORY SERVICE REPRESENTATIVE at beginning of P1. Teleneurology consulted and there were no concerns for acute stroke at the time, and no TNK was given. Admitted for management and work-up for CVA and nephrology consulted for hyponatremia. 10/19: Patient seen and examined at bedside in ED. No acute overnight events. Imaging of right lower extremity showed mild/moderate hip osteoarthritis and advanced tricompartment osteoarthritis of the knee with prominent osteopenia. Patient and spouse made aware of neurological imaging findings. 10/20: Patient seen and examined at bedside in ICU due to overflow in telemetry. Seen sitting up in bed, whereas he was not able to yesterday due to dizziness and does not endorse dizziness today but does endorse nausea after taking salt tablet. No acute overnight events. CT A/P showed moderate osteopenia, thoracic spondylolysis, spondylolesthesis of L5 on S1 with advanced degenerative disease. CT pelvis showed prostatomegaly. Venous doppler of lower extremities negative for DVT. Na noted to drop from 122 to 121 and patient started on salt tablets. 10/23/2024 patient currently seen in telemetry. More alert and awake. Son at bedside and is motor vehicle parts interpreter. Sodium was 127-currently on salt tablets. Clinically stable. Continue with fluid restriction. 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 patient can be discharged home on salt tablets. Spoke to primary team. Review of Systems Review of Systems Narrative Review of Systems: CONSTITUTIONAL: Patient denies any fever, chills positive for weight loss. patient has thyroid problems HEENT: Denies any visual disturbances or hearing problems. CARDIOVASCULAR: Patient denies any chest pain, shortness of breath, swelling in the lower extremities. PULMONARY: Patient denies any shortness of breath, cough. GASTROINTESTINAL: Patient denies any abdominal pain, constipation, nausea, vomiting, diarrhea. GENITOURINARY: Patient denies any urinary symptoms of burning or frequency or hematuria, denies any form in the urine. SKIN: Denies any rash. MUSCULOSKELETAL: significant weakness and unable to move his right lower extremity NEUROLOGICAL: Denies any neurological problems of strokes, seizures or confusion. Denies any memory problems. Gait imbalance, weakness PSYCHIATRIC: Denies any depression or anxiety. LYMPHATICS : No lymphadenopathy Exam Vital Signs Temp Pulse Resp BP Pulse Ox O2 Del Method 36.6 C 85 16 121/84 99 Room Air 10/23/24 04:00 10/23/24 06:15 10/23/24 06:15 10/23/24 04:00 10/23/24 06:15 10/23/24 04:00 Narrative Exam General: AOx3, no acute distress, able to speak full sentences, appears older than stated age HEENT: NC/AT, mucous membranes moist, bilateral sclera anicteric Cardiovascular: regular rate and rhythm, S1/S2 present, no murmurs appreciated Pulmonary: clear to auscultation bilaterally, no rales/rhonchi/wheezes Abdominal: soft, non-tender, non-distended, no rebound/guarding, normal bowel sounds present Musculoskeletal: unable to lift, bend or extend RLE, muscular atrophy in rt lower extremities Skin: warm and dry, intact, no rashes Neuro: CN II-XII intact, no focal deficits Objective Labs 10/23/24 04:29 10/23/24 13:30 Labs: Laboratory Results - last 24 hr 10/22/24 10/22/24 10/22/24 13:30 16:34 20:41 WBC RBC Hgb Hct MCV MCH MCHC RDW Std Deviation Plt Count Neut % (Auto) Lymph % (Auto) [place] % (Auto) Eos % (Auto) Baso % (Auto) Neut # (Auto) Lymph # (Auto) [place] # (Auto) Eos # (Auto) Baso # (Auto) Immature Gran # (Auto) Absolute Nucleated RBC Immature Gran % Nucleated RBC % Sodium 124 L 125 L 125 L Potassium Chloride Carbon Dioxide Anion Gap BUN Creatinine Estim Creat Clear Calc eGFR BUN/Creatinine Ratio Glucose Calculated Osmolality Calcium Corrected Calcium Phosphorus Magnesium Total Bilirubin AST ALT Alkaline Phosphatase Total Protein Albumin Globulin Albumin/Globulin Ratio 10/23/24 10/23/24 10/23/24 00:40 04:29 08:38 WBC 5.3 RBC 4.16 L Hgb 12.5 L Hct 32.8 L MCV 79 L MCH 30.0 MCHC 38.1 H RDW Std Deviation 36.2 Plt Count 283 Neut % (Auto) 58 Lymph % (Auto) 33 [place] % (Auto) 7 Eos % (Auto) 2 Baso % (Auto) 1 Neut # (Auto) 3.1 Lymph # (Auto) 1.7 [place] # (Auto) 0.4 Eos # (Auto) 0.1 Baso # (Auto) 0.0 Immature Gran # (Auto) 0.01 H Absolute Nucleated RBC 0.00 Immature Gran % 0 Nucleated RBC % 0 Sodium 128 L 127 L 127 L Potassium 4.2 Chloride 97 L Carbon Dioxide 22.8 Anion Gap 7 BUN 14 Creatinine 0.6 Estim Creat Clear Calc 106.6 eGFR > 60 BUN/Creatinine Ratio 23 H Glucose 159 H Calculated Osmolality 258 L Calcium 8.8 Corrected Calcium 8.8 Phosphorus 3.7 Magnesium 2.0 Total Bilirubin 1.5 H D AST 16 ALT 26 Alkaline Phosphatase 54 Total Protein 6.4 Albumin 4.0 Globulin 2.4 Albumin/Globulin Ratio 1.7 Assessment & Plan Assessment and plan (1) Dizziness: Status: Acute (2) Acute hyponatremia: Status: Acute Additional Assessment & Plan Additional Plan: Acute hyponatremia-most likely SIADH right leg weakness-questionable stroke. MRI negative. Neurology on the case. Had a long conversation with . Apparently since July patient has not been doing well. He started noticing significant weakness and unable to flex or extend his right lower extremity and since then has been wheelchair-bound. He is bedbound as per . Barely able to walk with a walker due to the right leg weakness. Went and saw his primary care physician and was told he has muscular atrophy although no workup was done. Chart review showed that in September his sodium was low. He stopped taking all his medications in the last 5 days. Home medications include aspirin, Lipitor, Plavix, Megace, methimazole. Hemoglobin 12.5, platelets 295. Sodium 118, potassium 4.4, creatinine 0.7, glucose 152, A1c 7 point, uric acid 2.2 consistent with SIADH, calcium 9.0, magnesium 2, total bilirubin 1.8, LFTs normal, TSH 2.64, free T41.84, urinalysis shows urine pH 1035 consistent with concentrated urine and 3+ glucose. Urine sodium 29.1. Urine tox screen positive for marijuana. Venous Doppler ultrasound negative for DVT. Knee x-ray showed osteoarthritis. Femur x-ray showed moderate right hip arthritis. Brain MRI showed no MR findings of demyelinating disease//stroke. 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 No medications that can be attributed. Patient noted to have weight loss and significant atrophy and weakness in the right lower extremity. Rule out paraneoplastic syndrome. CT of the chest, abdomen, pelvis ordered to look for underlying malignancy. Plan of care discussed with . Held the statin for now until the right leg weakness diagnosis is made 10/20/2024 patient currently seen in telemetry. Resident at bedside. Sodium dropped to 119. Son at bedside and the lang interpreter. Patient still having significant right leg weakness. Per neurology question TIA from posterior cerebral artery stenosis. No other neurological symptoms of confusion or headaches. Patient has mild dizziness upon sitting. Decided to start hypertonic saline at 35 mL/h with close monitoring of serum sodium. Salt tablets were held while on 3%. 10/23/2024 continue with salt tablets. Sodium 127. No new neurological symptoms of confusion headaches except mild dizziness. Physical therapy as tolerated. Plan of care discussed with son and primary team. Renal garay stable for discharge. Quality - progress note Quality Measures Quality Measures: VTE prophylaxis Reason for Continued Stay Reason for Continued Stay: further monitoring
--- NOTE | 2024-10-23 09:51 | PC.SS ---
Update: Plan is to d/c patient home today. Patient on room air.
--- NOTE | 2024-10-23 13:26 | ESDS_ITS ---
<Statement entered by Ranjit Yoon MD - 10/23/24 13:51> I saw and examined the patient, and I agree with current management stated by Dr Ami MD,PGY1. Plan of care was discussed with the attending physician and resident physician. Disclaimer: Despite multiple revisions, due to the dictation software being used, the document bellow may not be free of grammatical errors including phonetic/typographic errors. However, this does not deter from our commitment to providing health care in the patient's best interest in mind. Dr. Car MD, PGY 2 Planned Discharge Date 10/23/24 DS: Providers Provider Date of admission: 10/19/24 02:21 Primary care physician: Didi Atwood Admitting Provider: Jose Buchanan DO Attending Provider on Admission: [place] MD Consults: 10/18/24 22:34 Consult to Neurology / Tele-Neurology Routine Comment: Consulting Provider: [facility] 10/19/24 02:27 PT [Referral Physical Therapy] Routine Comment: Physician Instructions: Instructions: Stroke rule out Referral - [employer] Sewer And Drain Technician Routine Comment: stroke rule out 10/19/24 02:44 Consult to Neurology / Tele-Neurology Stat Comment: Dizziness, stroke rule out Consulting Provider: Portillo Vance 10/19/24 04:39 Consult to Nephrology Routine Comment: Hyponatremia Consulting Provider: Ashly Vanegas 10/19/24 17:28 Referral Speech Therapy Routine Comment: Attending Provider on DC: German [place] MD Discharging Provider: Rodrick Mueller MD DS: Diagnosis Problem List Completed Was Problem List Reviewed/Reconciled?: Yes Hospital Course Hospital Course Hospital course: 58-year-old male with past medical history significant for insulin-dependent diabetes mellitus type 2, hyperthyroidism, scoliosis and chronic musculoskeletal pain presented with a chief complaint of dizziness. Patient stated that when he woke up in the morning, as soon as he got out of bed he began to feel extremely dizzy. His dizziness was temporary and subsided on it's own. Whenever he changes from sitting or laying down to standing he feels dizzy. No change with head position. Denied any headache, new onset visual changes, hearing loss, tinnitus, sinusitis, loss of consciousness, loss of sensation. Also according to patient and his he had right femur, knee and leg pain for the past 3 months, progressive, patient requiring FWW for mobility. For the past few months has had about 4 episodes of nocturia per night and 6?8 episodes of urination during the day. He was recently prescribed trazodone by his PCP for insomnia. CT brain negative for acute hemorrhage, mass effect or midline shift. 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 In the ED patient received 1 L normal saline IV fluid bolus. Patient found to be hyponatremic with sodium of 118, osmolarity 245. MRI showed lack of filling of left posterior cerebral artery. Neurology consulted, recommended DAPT, statin. Patient had positive orthostatic hypotension. Nephrology consulted for hyponatremia, patient treated with hypertonic saline and salt tabs. Sodium still increased over next several days to 127. Neurology cleared patient for discharge with DAPT, statin, plan for outpatient follow-up. Nephrology cleared patient for discharge. Patient medically stable and cleared for discharge. Discharge plan: Continue Taking aspirin, plavix and statin indefinitely as you had a stroke Continue taking salt tablets 1 g twice daily recommended by boarding mother Continue taking her Lantus we reduce it to 10 units and he can follow-up with your PCP to manage the dosage for Lantus Use Baqsimi if blood sugars drop below 60 mg/dL intranasally Take meclizine 3 times daily as needed for dizziness You need to have good control of her blood sugars and blood pressure Follow-up with PCP as outpatient within 2 weeks Follow-up with boarding mother as outpatient Follow-up with neurologist as outpatient within 2 weeks You need to follow-up with neurosurgery for endovascular intervention for EXECUTIVE SALES ASSISTANT stenting if needed as an outpatient. Diagnoses: #Severe, symptomatic hypoosmolar hyponatremia, improving #Stroke rule out, potential TIA #Hyperthyroidism #Insulin-dependent diabetes mellitus type 2 #Scoliosis #Chronic musculoskeletal pain Plan of care discussed with senior resident Dr. Yoon PGY?[address] Hills. Rodrick Mueller MD PGY?1 Time Spent with Patient Time attestation: Total time spent providing and/or coordinating discharge services: Home Health Home Health Referral Orders: 10/23/24 09:56 Home Health Referral Routine Reason For Exam: Physical therapy Home-Bound The patient must either because of illness or injury, need the aid of supportive devices such as crutches, canes, wheelchairs, and walkers; the use of special transportation; or the assistance of another person in order to leave their place of residence; OR have a condition such that leaving his or her home is medically contraindicated. In addition, the patient also meets the following criteria: patient is normally unable to leave the home and leaving home requires considerable taxing effort. Addendum to Home Health Certification Practitioner's Certification: I certify that the patient has been under my care in the hospital and the care of attending physician (see below). We had a [id number] encounter on (see date below). My clinical findings indicate that the patient is home bound per the above criteria and the Home Health Services noted in these orders are medically necessary. The primary reason for the [id number] encounter is related to the fact that the patient requires home health services. Date Certifying [id number] Physician Encounter: 10/23/24 Physician's Name who will Assume Oversight for Services: Didi Atwood Physician's Phone No.who will Assume Oversight for Service: HOSTESS - Community Resources: No PT to Evaluate: Yes PT to evaluate and provide a treatmnet plan to increase patient's mobility and strength. Wound Care: No IV Therapy: No RN Safety Evaluation: Yes RN to evaluate and create a plan of care that will produce positive outcomes. Palliative Treatment: No Palliative treatment and evaluate the need for hospice. Home Health Aide - Personal Care: No Home Health Aide to assist with any ADL's. Exam Vital Signs Temp Pulse Resp BP Pulse Ox O2 Del Method 99.0 F 87 22 H 116/72 99 Room Air 10/23/24 12:10/23/24 12:10/23/24 12:01 10/23/24 12:10/23/24 12:10/23/24 12:01 Narrative Exam PE: Gen: Well-developed and well-nourished. HEENT: NCAT, PERRLA, EOMI, MMM, anicteric conjunctivae. CVS: normal S1 and S2. RRR. No M/R/G. Resp: CTA B/L. No rhonchi, rales, crackles or wheezing. Abd: soft, non-tender, non-distended. MSK: Good ROM in BUE & BLE. No edema or rash. Neuro: CN II-XII grossly intact. Strength 5/5 in BUE & LLE. Alert and oriented x3. Right leg 0/5 muscle strength, foot strength intact, chronic. Psych: appropriate mood and affect. Discharge Plan Plan Patient Disposition: HOME (Self Care) Patient condition on transfer: Stable Care Plan Goals: Continue Taking aspirin, plavix and statin indefinitely as you had a stroke Continue taking salt tablets 1 g twice daily recommended by boarding mother Continue taking her Lantus we reduce it to 10 units and he can follow-up with your PCP to manage the dosage for Lantus Use Baqsimi if blood sugars drop below 60 mg/dL intranasally Take meclizine 3 times daily as needed for dizziness You need to have good control of her blood sugars and blood pressure Follow-up with PCP as outpatient within 2 weeks Follow-up with boarding mother as outpatient Follow-up with neurologist as outpatient within 2 weeks You need to follow-up with neurosurgery for endovascular intervention for EXECUTIVE SALES ASSISTANT stenting if needed as an outpatient. Prescriptions/Referrals Prescriptions/Med Rec: New aspirin [Ecotrin Low Strength] 81 mg Tablet,Delayed Release (Dr/Ec) 81 mg PO QDAY 30 Days Qty: 30 0RF atorvastatin 80 mg tablet 80 mg PO HS 30 Days Qty: 30 0RF clopidogrel 75 mg Tablet 75 mg PO QDAY 30 Days Qty: 30 0RF methimazole 5 mg Tablet 5 mg PO DAILY 30 Days Qty: 30 0RF meclizine 25 mg Tablet 25 mg PO TID PRN (Reason: Dizziness) Qty: 30 0RF insulin glargine [Lantus Solostar U-100 Insulin] 100 unit/mL (3 mL) insulin pen 10 unit subcut QPM Qty: 15 0RF Baqsimi 3 mg/actuation spray,non-aerosol 3 mg intranasal QDAY PRN (Reason: hypoglycemia) Qty: 2 0RF sodium chloride 1,000 mg tablet,soluble 1,000 mg PO BID Qty: 30 0RF Continued megestrol 800 mg/20 mL (20 mL) suspension 800 mg PO QDAY 30 Days Qty: 600 1RF Referrals: Didi Atwood [Primary Care Provider] - Portillo Vance MD [Physician] - Ashly Vanegas MD [Physician] - Patient/Caregiver Discharge Instructions Education Materials: Stroke: Taking Medicines, Vertigo Staying Safe, Stroke Regaining Movement, Stroke Self Care After, Stroke Prevention Eating Healthy Print Language: [place] Stand Alone Forms: Debra Award Info., Patient Portal Info Letter Discharge Order Discharge Orders: Discharge (Routine); Ordered 10/23/24 Ordered By: Ranjit Yoon Quality Discharge Quality Measures VTE prophylaxis MD Attestestation MD Attestation I have examined the patient, reviewed labs and imaging findings, discussed the case with the resident(s), and reviewed entered orders. I agree with the plan of care as outlined in this note. Dr. Hills
--- NOTE | 2024-10-23 13:37 | PC.SS ---
Update: Plan is for the patient to d/c home today.
[2024-10-23 14:40] LABS: Sodium 125 mMol/L (136-145)
[2024-10-23] MEDS: POLYETHYLENE GLYCOL 17 GM PACKET PO (15:18)
[2024-10-23] MEDS: SENNA TABLET 2 TAB PO (15:18)
--- NOTE | 2024-10-23 17:12 | PC.NURSE ---
Pt's son reported to me that pt has not had a bm since admit. Pt stated that he does have flatus but is not having the urge to have a BM. I notified Dr. Yoon that the pt has not had a BM and he is in the process of being discharged. Per Doctor pt is to receive ordered laxative and wait an hour for any effects. [address] Yoon regarding pt not having a BM yet and if we could proceed with discharge or other intervention needed. PEr Dr. Yeung pt is okay to be discharged home. I explained to the pt and pt's son to please follow- up with PCP tomorrow if no BM today, both pt and son verbalized understanding.
--- NOTE | 2024-10-23 21:19 | PD.VPROG1 ---
Telemedicine visit statement This visit was conducted with the use of virtual visit was obtained on 10/23/24. Documentation for date of: 10/23/24 Subjective Subjective Interval history: Patient is in ICU. Continue to have dizziness with changes in positioning especially when he sits up. He is pain and restricted range of motion involving the right lower extremity especially at the knee and the hip unchanged. His sodium level is being closely monitored, last checked: 127. Tolerating oral diet well. Virtual exam Vital Signs Temp Pulse Resp BP Pulse Ox O2 Del Method 99.2 F 81 16 126/80 98 Room Air 10/23/24 16:00 10/23/24 16:00 10/23/24 16:00 10/23/24 16:00 10/23/24 16:00 10/23/24 16:00 Objective Labs 10/23/24 04:29 10/23/24 13:30 Labs: Laboratory Results - last 24 hr 10/22/24 10/23/24 10/23/24 20:41 00:40 04:29 WBC 5.3 RBC 4.16 L Hgb 12.5 L Hct 32.8 L MCV 79 L MCH 30.0 MCHC 38.1 H RDW Std Deviation 36.2 Plt Count 283 Neut % (Auto) 58 Lymph % (Auto) 33 [place] % (Auto) 7 Eos % (Auto) 2 Baso % (Auto) 1 Neut # (Auto) 3.1 Lymph # (Auto) 1.7 [place] # (Auto) 0.4 Eos # (Auto) 0.1 Baso # (Auto) 0.0 Immature Gran # (Auto) 0.01 H Absolute Nucleated RBC 0.00 Immature Gran % 0 Nucleated RBC % 0 Sodium 125 L 128 L 127 L Potassium 4.2 Chloride 97 L Carbon Dioxide 22.8 Anion Gap 7 BUN 14 Creatinine 0.6 Estim Creat Clear Calc 106.6 eGFR > 60 BUN/Creatinine Ratio 23 H Glucose 159 H Calculated Osmolality 258 L Calcium 8.8 Corrected Calcium 8.8 Phosphorus 3.7 Magnesium 2.0 Total Bilirubin 1.5 H D AST 16 ALT 26 Alkaline Phosphatase 54 Total Protein 6.4 Albumin 4.0 Globulin 2.4 Albumin/Globulin Ratio 1.7 10/23/24 10/23/24 08:38 13:30 WBC RBC Hgb Hct MCV MCH MCHC RDW Std Deviation Plt Count Neut % (Auto) Lymph % (Auto) [place] % (Auto) Eos % (Auto) Baso % (Auto) Neut # (Auto) Lymph # (Auto) [place] # (Auto) Eos # (Auto) Baso # (Auto) Immature Gran # (Auto) Absolute Nucleated RBC Immature Gran % Nucleated RBC % Sodium 127 L 125 L Potassium Chloride Carbon Dioxide Anion Gap BUN Creatinine Estim Creat Clear Calc eGFR BUN/Creatinine Ratio Glucose Calculated Osmolality Calcium Corrected Calcium Phosphorus Magnesium Total Bilirubin AST ALT Alkaline Phosphatase Total Protein Albumin Globulin Albumin/Globulin Ratio Assessment & Plan Problem List (1) Dizziness: Status: Acute Assessment and plan: 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 Stable for DC home and will see him in 2 weeks. (2) Acute hyponatremia: Status: Acute Assessment and plan: Continue oral sodium tablets and check sodium periodically upon discharge.
[2024-10-24 07:02] LABS: Osmolality, Urine* 497 mOsm/kg (50-1200)
--- NOTE | 2024-10-26 08:22 | PC.CC ---
pt is readmitted to the hospital on 10/24/24 prior to establishing home health. HH referral is canceled.
== END 2024-10-23 17:00 | disposition home or self-care (01) | DRG 426 ==
LOC: SERX 10-19 01:37 → SERHOLD 10-19 02:35 → S2SX 10-20 06:21
PROVIDERS: Nurse Practitioner Family; Admitting Provider Student in an Organized Health Care Education/Training Program; Emergency Provider Emergency Medicine; PCP Physician Assistant; Visit Provider Student in an Organized Health Care Education/Training Program
DX: E87.1 Hypo-osmolality and hyponatremia (principal); R29.810 Facial weakness; R47.01 Aphasia; I10 Essential (primary) hypertension; Z87.891 Personal history of nicotine dependence; Z79.4 Long term (current) use of insulin; E05.90 Thyrotoxicosis, unspecified without thyrotoxic crisis or storm; M41.9 Scoliosis, unspecified; E87.8 Other disorders of electrolyte and fluid balance, not elsewhere classified; R42 Dizziness and giddiness; G89.29 Other chronic pain; M79.18 Myalgia, other site; E11.40 Type 2 diabetes mellitus with diabetic neuropathy, unspecified; I95.1 Orthostatic hypotension; N40.1 Benign prostatic hyperplasia with lower urinary tract symptoms; R35.1 Nocturia; I66.22 Occlusion and stenosis of left posterior cerebral artery; M16.11 Unilateral primary osteoarthritis, right hip; G47.00 Insomnia, unspecified; Z74.01 Bed confinement status
CPT/HCPCS: 36415; 70450; 70496; 70498; 70544; 71250; 72192; 73552; 73562; 74150; 80053; 80061; 80307; 81001; 82436; 82570; 83036; 83735; 83935; 84100; 84133; 84295; 84300; 84439; 84443; 84484; 84550; 85025; 85610; 85730; 87086; 93005; 93306; 93970; 96360; 97162; 99291; A4649; J1643; J1815; J7040; J7131; Q9967; A9270

== ENCOUNTER 2024-11-03 10:45 | Emergency (ER) | payer MEDICAID, SELFPAY ==
[2024-11-03] VITALS (7 sets, daily range): BP systolic 90–135; BP diastolic 63–79; PULSE 70–110; RESP 15–19; TEMP 36.5–36.9; O2SAT 99–100; BMI 18.3
--- NOTE | 2024-11-03 11:33 | PD.EDRME ---
Rapid Medical Screening Exam RME Arrival date/time: 11/03/24 10:45 59-year-old male presents to the emergency department with complaints of acute dizziness recently discharged from hospital for CVA, and hyponatremia. I have greeted and performed a focused initial assessment of this patient. Initial appropriate labs ordered at this time. A comprehensive ED assessment and evaluation of the patient and analysis of all test and completion of medical decision making process will be conducted by additional ED provider. Chief Complaint: Dizziness Time Seen by Provider: 11/03/24 11:17 Vital signs: Vital Signs Temperature 98.2 F 11/03/24 11:17 Pulse Rate 107 H 11/03/24 11:17 Respiratory Rate 15 11/03/24 11:17 Blood Pressure 95/67 11/03/24 11:17 Pulse Oximetry (%) 99 11/03/24 11:17 Oxygen Delivery Method Room Air 11/03/24 11:17
--- NOTE | 2024-11-03 11:34 | XR_ITS ---
Examination: CT brain head without contrast. 2-D sagittal coronal reconstructions Date and time of exam:November 03, 2024 1155 hours INDICATIONS: Onset dizziness today, history stroke, CVA CTDI: vol (mGy):48.8 DLP: (mGycm):977 Technique: Multiple CT axial sections of the brain have been obtained, 5 mm slice thickness. Contrast has not been administered. 2-D sagittal, coronal reconstructions have been obtained Low dose protocols were performed. One or more of the following dose reduction techniques were used; automated exposure control, adjustment of the mA and/or KV according to patient size, use of iterative reconstruction technique. Findings: No significant ventricular enlargement. Intra-axial or extra-axial hemorrhage density is not seen. No mass effect or midline shift Basal cisterns are not remarkable. Fourth ventricle is midline. Cranial vault intact. Impression: Negative for acute hemorrhage, mass effect or midline shift If symptoms persist, consider repeat brain MRI follow-up, stroke protocol
--- NOTE | 2024-11-03 11:34 | XR_ITS ---
Examination: PA chest single view TECHNIQUE: Upright PA chest single view Exam date and time: November 03, 2024 1211 hours INDICATIONS: Onset chest pain today. FINDINGS: Normal heart size. Lungs are clear. The osseous structures are intact IMPRESSION: No active disease.
[2024-11-03 12:38] LABS: Basophils % (Auto) 1 % (0-2.5); Eosinophils # (Auto) 0.1 Thou/mm3 (0.0-0.5); Eosinophils % (Auto) 2 % (0-10); Hematocrit 38.5 % (41.0-53.0); Hemoglobin 14.3 g/dL (13.5-16.0); Immature Granulocytes % (Auto) 0 % (0-0); Immature Granulocytes Auto 0.02 Thou/mm3 (0.00-0.00); Lymphocytes # (Auto) 1.8 Thou/mm3 (1.0-4.8); Lymphocytes % (Auto) 23 % (10-50); Mean Corpuscular HGB Conc 37.1 g/dl (31.0-37.0); Mean Corpuscular Hemoglobin 29.7 pg (25.0-35.0); Mean Corpuscular Volume 80 fL (80-100); Monocytes # (Auto) 0.5 Thou/mm3 (0.0-0.8); Monocytes % (Auto) 6 % (0-12); Neutrophils # (Auto) 5.4 Thou/mm3 (1.8-7.7); Neutrophils % (Auto) 69 % (37-80); Nucleated Red Blood Cell % 0 /100 WBC (0); Platelet Count 384 Thou/mm3 (140-440); RDW Standard Deviation 37.1 fL (35.1-43.9); Red Blood Count 4.81 Miln/mm3 (4.50-5.90); White Blood Count 7.8 Thou/mm3 (3.8-10.6)
[2024-11-03 12:50] LABS: INR 1.1 (0.9-1.3); Prothrombin Time 11.9 Seconds (9.0-12.2)
[2024-11-03 13:00] LABS: Alanine Aminotransferase 30 U/L (10-49); Albumin, Serum 4.3 gm/dL (3.5-5.0); Albumin/Globulin Ratio 1.7 (1.2-2.2); Alkaline Phosphatase 69 U/L (46-116); Anion Gap 7 (7-16); Aspartate Amino Transferase 16 U/L (0-34); BUN/Creatinine Ratio 23 Ratio (12-20); Bilirubin,Total 1.7 mg/dL (0.3-1.2); Blood Urea Nitrogen 16 mg/dL (9-23); Calcium 9.1 mg/dL (8.3-10.6); Calcium (Corrected) 9.1 mg/dL (8.5-10.1); Carbon Dioxide 23.6 mMol/L (20.0-31.0); Chloride 96 mMol/L (98-107); Creatinine (Component) 0.7 mg/dL (0.6-1.3); Estimated Creatinine Clearance 84.1 mL/min (>60); Globulin 2.6 gm/dL (2.3-3.5); Glucose 304 mg/dL (74-106); Osmolality,Calculated 267 (275-295); Potassium 3.8 mMol/L (3.4-5.1); Sodium 127 mMol/L (136-145); Total Protein 6.9 gm/dL (5.7-8.2); Troponin I < 0.020 ng/mL (0.0-0.045); eGFR > 60 See Note
[2024-11-03 13:06] LABS: Collection Type, Urine Clean Catch; Squamous Epithelial Cell,Urine 0 /hpf (0-5)
[2024-11-03 13:26] LABS: Bilirubin,Urine Negative (Negative); Blood,Urine Negative (Negative); Clarity,Urine Clear (Clear/Hazy); Color,Urine Yellow (Lt Yel-Yel); Glucose, Urine 4+ (Negative); Hyaline Casts,Urine < 1 /hpf (0-1); Ketones,Urine Negative (Negative); Leukocyte Esterase,Urine Negative (Negative); Nitrite,Urine Negative (Negative); PH,Urine 6.5 (5.0-7.0); Protein,Urine Trace (Neg - Trace); RBC,Urine 2 /hpf (0-3); Specific Gravity,Urine 1.031 (1.001-1.035); Urobilinogen,Urine Negative mg/dL (0.0-1.0); WBC,Urine 2 /hpf (0-5)
[2024-11-03 13:31] LABS: Amphetamine/Methamp Scrn,U Negative (Negative); Barbiturate Screen,Urine Negative (Negative); Benzodiazepines Screen,Urine Negative (Negative); Benzoylecgonine Screen, Ur Negative (Negative); Fentanyl Screen,Urine Negative (Negative); Opiate Screen,Urine Negative (Negative); THC Screen,Urine Positive (Negative)
--- NOTE | 2024-11-03 18:08 | EDNOTE_ITS ---
ED Dizzyness RME/HPI General Chief Complaint: Dizziness Stated Complaint: DIZZINESS Time Seen by Provider: 11/03/24 11:17 Arrival date/time: 11/03/24 10:45 RME / HPI RME / HPI Narrative: 59-year-old male patient with significant history of hypercholesterolemia , diabetes mellitus recent CVA, hyponatremia, was brought in by family for evaluation regarding dizziness with standing and walking. Onset of symptoms earlier today. Patient denies any headache denies any other complaints no medication was taken prior to arrival. Related Data Previous Rx's ?Medication ?Instructions ?Recorded megestrol 800 mg/20 mL (20 mL) 800 mg (20 mL) PO QDAY 30 days 09/30/24 oral suspension #600 mL aspirin 81 mg tablet,delayed 81 mg PO QDAY 30 days #30 tabs 10/19/24 release (Ecotrin Low Strength) atorvastatin 80 mg tablet 80 mg PO HS 30 days #30 tabs 10/19/24 clopidogrel 75 mg tablet 75 mg PO QDAY 30 days #30 ta bs 10/19/24 methimazole 5 mg tablet 5 mg PO DAILY 30 days #30 ta bs 10/19/24 glucagon 3 mg/actuation nasal 3 mg intranasal QDAY PRN 10/23/24 spray (Baqsimi) hypoglycemia #2 ea insulin glargine 100 unit/mL (3 10 unit (0.1 mL) subcu t QPM #15 mL 10/23/24 mL) subcutaneous pen (Lantus Solostar U-100 Insulin) meclizine 25 mg tablet 25 mg PO TID PRN Dizziness # 30 tabs 10/23/24 sodium chloride 1,000 mg soluble 1,000 mg PO BID #60 t abs 10/27/24 tablet Allergies Allergy/AdvReac Type Severity Reaction Status Date / Time No Known Drug Allergies Allergy Verified 11/03/24 10:46 Review of Systems Review of Systems Narrative Review of Systems: Review of system reviewed and within normal limits except mentioned in HPI ED Exam Narrative Physical exam: VITAL SIGNS: Reviewed. GENERAL APPEARANCE: Alert and interactive, follows commands, no acute distress, HEAD AND FACE: Non-traumatic. ENT: PERRL, pink conjunctivitis, eyelid no trauma, Mucous membrane moist. NECK: Supple, nontender, no nuchal rigidity. CHEST: No tenderness, no crepitus, no paradoxical movement, no retractions. LUNGS: Clear, well ventilated, symmetric, no rales, no wheezing, no ronchi, no stridor, good breath sounds bilaterally. HEART: Regular rate, regular rhythm, no murmur, no gallops. ABDOMEN: Soft, positive bowel sounds, nondistended, no guarding, nontender, no rebound, no masses, RECTAL: Deferred. GENITAL: Deferred. NEUROLOGICAL: Gross motor function intact sensory function intact, Appropriate for age. MUSCULOSKELETAL: low back nontender, full range of motion. EXTREMITIES: Nontender, full range of motion. SKIN: Color pink, dry, no rash, no lacerations, no abrasions, no contusions. LYMPHATICS: Deferred. Course Quality Measures none Orders Category Date Time Status Bedside Blood Glucose NOW Care 11/03/24 11:34 Active Mild Disabilities Teacher STAT Care 11/03/24 11:34 Active EKG (ED ONLY) *Do not use* NOW Care 11/03/24 11:[address] head/brain wo con Stat Exams 11/03/24 11:34 Completed EKG (ED Only) Stat Exams 11/03/24 11:34 Ordered XR chest 1V portable Stat Exams 11/03/24 11:34 Completed CBC Stat Lab 11/03/24 11:42 Completed Comprehensive Metabolic Panel Stat Lab 11/03/24 11:42 Completed Drug Screen,Urine Stat Lab 11/03/24 12:59 Completed Prothrombin Time with INR Stat Lab 11/03/24 11:42 Completed Troponin I Stat Lab 11/03/24 11:42 Completed Urinalysis Stat Lab 11/03/24 12:59 Completed Sodium Chloride 0.9% 1000 ml [Ns] 1,000 ml Med 11/03/24 18:08 Discontinued IV 999 mls/hr Sodium Chloride 0.9% 1000 ml [Ns] 1,000 ml Med 11/03/24 18:20 Discontinued IV 999 mls/hr Vital Signs Vital signs: Vital Signs Temperature 98.2 F 11/03/24 11:17 Pulse Rate 107 H 11/03/24 11:17 Respiratory Rate 15 11/03/24 11:17 Blood Pressure 95/67 11/03/24 11:17 Pulse Oximetry (%) 99 11/03/24 11:17 Oxygen Delivery Method Room Air 11/03/24 11:17 Dizziness MDM Narrative MDM Narrative:: 59-year-old male patient with significant history of hypercholesterolemia , diabetes mellitus recent CVA, hyponatremia, was brought in by family for evaluation regarding dizziness with standing and walking. Onset of symptoms earlier today. Patient denies any headache denies any other complaints no medication was taken prior to arrival. Laboratory workup is significant for sodium of 127. Sugar of 304, total bili 1.7 the rest of the labs unremarkable. CT scan of the head came back unremarkable. Chest x-ray also came back unremarkable. Blood pressure was noted to be 107/70 prior to discharge. Patient received 2 L of IV NS. Patient data External records reviewed:: None Clinical information provided by:: patient Social determinants that could affect healthcare access:: none Patient has the following chronic illnesses:: History of recent CVA, and hyponatremia How is presenting disease/condition affected by chronic disease/condition?: exacerbated by Evaluation data The following diagnostics were reviewed and interpreted by me:: lab results, radiology exam(s) and EKG tracing(s) Lab and/or radiology exams considered but not ordered:: None Interpretation Summary: See results in MDM. EKG showed as interpreted by me showed sinus tachycardia, ventricular to 106 bpm, parents at 1119 MS, no ST segment elevation depression noted. Medications / Prescriptions Medications or Prescriptions considered but not ordered:: None Medication administrations:: Medication Administration History Discontinued Medications Sodium Chloride (Ns) 1,000 mls @ 999 mls/hr IV .Q1H1M ONE Stop: 11/03/24 19:08 Last Infusion: 11/03/24 20:34 Dose: Infused Documented By: Admin: 11/03/24 18:30 Dose: 999 mls/hr Documented By: SMITHA Sodium Chloride (Ns) 1,000 mls @ 999 mls/hr IV .Q1H1M ONE Stop: 11/03/24 19:20 Last Admin: 11/03/24 21:33 Dose: 999 mls/hr Documented By: CB Patient received 2 L of IV fluids for hydration. Consultations Consultation(s) initiated? (list below): No Diagnosis Dizziness Differential Diagnosis: benign paroxysmal positional vertigo, orthostatic hypotension and cerebrovascular accident Most likely diagnosis given after review of the tests above:: Dizziness Admission Indicated Admission indicated?: not indicated Admission Request Was there a request for admission?: No Disposition Plan Disposition Plan: Discharge Discharge Attestation Discharge Attestation: The patient and all family members were given an opportunity to ask questions and understood the discharge instructions. Discharge instructions specifically effects, indications for sooner follow up or return to the emergency department, and the expected course of current diagnosis. Patient condition: Stable Discharge Plan Plan Patient Disposition: HOME (Self Care) Disposition Comment: Stable Prescriptions/Referrals Prescriptions/Med Rec: No Action megestrol 800 mg/20 mL (20 mL) suspension 800 mg PO QDAY 30 Days Qty: 600 1RF aspirin [Ecotrin Low Strength] 81 mg Tablet,Delayed Release (Dr/Ec) 81 mg PO QDAY 30 Days Qty: 30 0RF atorvastatin 80 mg tablet 80 mg PO HS 30 Days Qty: 30 0RF clopidogrel 75 mg Tablet 75 mg PO QDAY 30 Days Qty: 30 0RF methimazole 5 mg Tablet 5 mg PO DAILY 30 Days Qty: 30 0RF meclizine 25 mg Tablet 25 mg PO TID PRN (Reason: Dizziness) Qty: 30 0RF insulin glargine [Lantus Solostar U-100 Insulin] 100 unit/mL (3 mL) insulin pen 10 unit subcut QPM Qty: 15 0RF Baqsimi 3 mg/actuation spray,non-aerosol 3 mg intranasal QDAY PRN (Reason: hypoglycemia) Qty: 2 0RF sodium chloride 1,000 mg tablet,soluble 1,000 mg PO BID Qty: 60 0RF Referrals: Didi Atwood [Primary Care Provider] - In 1 week Problem List Clinical Impression: Dizziness Patient/Caregiver Discharge Instructions Discharge Activity: activity as tolerated Education Materials: ED Dizziness, Uncertain Cause Additional Instructions: Thank you for the opportunity for serving you today. You are stable for discharged . You are advised to: Follow-up with your PCP in 1 to 2 days Return to ED for worsening of symptoms Print Language: Haitian Stand Alone Forms: Debra Award Info., Patient Portal Info Letter PA/CREDIT CARD SPECIALIST Supervising Physician ROSA ELENA/RACQUEL Supervising Physician: MD Peter
[2024-11-03] MEDS: SODIUM CHLORIDE 0.9% 1000 ML 1,000 ML 999 ML IV ×2 (18:30→21:33)
== END 2024-11-03 23:09 | disposition home or self-care (01) ==
PROVIDERS: Nurse Practitioner Primary Care; Emergency Provider Emergency Medicine; PCP Physician Assistant
DX: R42 Dizziness and giddiness (principal); R00.0 Tachycardia, unspecified; E11.9 Type 2 diabetes mellitus without complications; E78.00 Pure hypercholesterolemia, unspecified; Z86.73 Personal history of transient ischemic attack (TIA), and cerebral infarction without residual deficits
CPT/HCPCS: 36415; 70450; 71045; 80053; 80307; 81001; 84484; 85025; 85610; 93005; 96360; 96361; 99284; J7030

== ENCOUNTER → 2024-11-09 | Outpatient (CLI) | payer MEDICAID, SELFPAY ==
--- NOTE | 2024-11-09 17:00 | XR_ITS ---
Examination: MRI lumbar spine without contrast Date and time of exam: November 09, 2024 1726 hours INDICATIONS: Right-sided lower back pain radiating down the right leg weakness in both legs beginning 3 months ago Technique: Multiple MRI axial and sagittal sections lumbar spine. Sagittal T2-weighted images, TR 3500, TE 118 T1 weighted transverse sections, TR 688 T8.5, T2-weighted sagittal sections T1 weighted sagittal sections TR 621, TE 30 T2 axial sections, TR 4, 190, TE 84. Findings: Grade 1 spondylolisthesis L5 on S1 Moderate disc narrowing L5-S1 No lumbar fracture Disc desiccation lower 3 lumbar levels L5-S1 6 mm central lumbar disc bulge extending to the foraminal regions Moderate to severe bilateral L5 ganglionic compression secondary to the spondylolisthesis L4-L5 no disc protrusion L3-L4 no disc protrusion L2-L3 no disc protrusion L1-2 no disc protrusion IMPRESSION: L5-S1 grade 1 spondylolisthesis with 6 mm central lumbar disc bulge extending to the foraminal regions, producing moderate to severe bilateral L5 ganglionic compression
== END | disposition home or self-care (01) ==
PROVIDERS: PCP Physician Assistant; Referring Provider Registered Nurse; Visit Provider Registered Nurse
DX: M43.17 Spondylolisthesis, lumbosacral region (principal); G95.20 Unspecified cord compression
CPT/HCPCS: 72148

== ENCOUNTER 2024-12-11 16:49 | Emergency (ER) | payer MEDICAID, SELFPAY ==
[2024-12-11 17:21] VITALS: BP 105/75; PULSE 93; RESP 18; TEMP 36.9; O2SAT 100
--- NOTE | 2024-12-11 17:26 | XR_ITS ---
Examination: Abdomen sonogram, Limited Date and time of exam: December 11, 2024 2035 hrs. Indications: Jaundice beginning 3 days ago with body weakness Technique: Real-time da silva scale transabdominal sonographic images of the upper abdomen obtained. Findings: Negative for gallstones Gallbladder wall 0.39 cm no edema Common bile duct 0.4 cm Pancreatic head 2.1 cm Liver 13.4 cm no liver lesions Normal hepatopedal portal venous flow Patent IVC Impression: Negative for gallstones Gallbladder wall is thickened 0.39 cm,. Clinical correlation advised Consider HIDA scan follow-up or MRCP to exclude cholecystitis, if clinically warranted
--- NOTE | 2024-12-11 17:27 | PD.EDRME ---
Rapid Medical Screening Exam E Arrival date/time: 12/11/24 16:49 59-year-old male with a history of type 2 diabetes presents to the emergency room with a chief complaint of generalized weakness and jaundice. Patient states he was sent over by his primary care provider due to his jaundice and his history of hyponatremia. I have greeted and performed a focused initial assessment of this patient. A comprehensive ED assessment and evaluation of the patient, analysis of all test results, and completion of the medical decision making process will be conducted by additional ED providers. Chief Complaint: Weakness Time Seen by Provider: 12/11/24 16:56 Vital signs: Vital Signs Temperature 98.5 F 12/11/24 17:21 Pulse Rate 93 12/11/24 17:21 Respiratory Rate 18 12/11/24 17:21 Blood Pressure 105/75 12/11/24 17:21 Pulse Oximetry (%) 100 12/11/24 17:21 Oxygen Delivery Method Room Air 12/11/24 17:21 Vital signs reviewed by provider: Yes
[2024-12-11 17:53] LABS: Basophils % (Auto) 1 % (0-2.5); Eosinophils # (Auto) 0.1 Thou/mm3 (0.0-0.5); Eosinophils % (Auto) 2 % (0-10); Hemoglobin 12.9 g/dL (13.5-16.0); Immature Granulocytes % (Auto) 0 % (0-0); Immature Granulocytes Auto 0.01 Thou/mm3 (0.00-0.00); Lymphocytes # (Auto) 1.3 Thou/mm3 (1.0-4.8); Lymphocytes % (Auto) 25 % (10-50); Mean Corpuscular HGB Conc 36.9 g/dl (31.0-37.0); Mean Corpuscular Hemoglobin 31.1 pg (25.0-35.0); Mean Corpuscular Volume 84 fL (80-100); Monocytes # (Auto) 0.3 Thou/mm3 (0.0-0.8); Monocytes % (Auto) 6 % (0-12); Neutrophils # (Auto) 3.5 Thou/mm3 (1.8-7.7); Neutrophils % (Auto) 66 % (37-80); Nucleated Red Blood Cell % 0 /100 WBC (0); Platelet Count 300 Thou/mm3 (140-440); RDW Standard Deviation 41.5 fL (35.1-43.9); Red Blood Count 4.15 Miln/mm3 (4.50-5.90); White Blood Count 5.3 Thou/mm3 (3.8-10.6)
[2024-12-11 18:10] LABS: Alanine Aminotransferase 53 U/L (10-49); Albumin, Serum 3.8 gm/dL (3.5-5.0); Albumin/Globulin Ratio 1.5 (1.2-2.2); Alkaline Phosphatase 53 U/L (46-116); Anion Gap 9 (7-16); Aspartate Amino Transferase 39 U/L (0-34); BUN/Creatinine Ratio 17 Ratio (12-20); Bilirubin,Total 1.3 mg/dL (0.3-1.2); Blood Urea Nitrogen 10 mg/dL (9-23); Calcium 8.7 mg/dL (8.3-10.6); Calcium (Corrected) 8.9 mg/dL (8.5-10.1); Carbon Dioxide 23.3 mMol/L (20.0-31.0); Chloride 98 mMol/L (98-107); Creatinine (Component) 0.6 mg/dL (0.6-1.3); Globulin 2.5 gm/dL (2.3-3.5); Glucose 235 mg/dL (74-106); Lipase 26 U/L (12-53); Osmolality,Calculated 267 (275-295); Potassium 4.4 mMol/L (3.4-5.1); Sodium 130 mMol/L (136-145); Total Protein 6.3 gm/dL (5.7-8.2); eGFR > 60 See Note
[2024-12-11 18:52] LABS: Collection Type, Urine Clean Catch
[2024-12-11 19:07] LABS: Bilirubin,Urine Negative (Negative); Blood,Urine Negative (Negative); Clarity,Urine Clear (Clear/Hazy); Color,Urine Yellow (Lt Yel-Yel); Glucose, Urine 4+ (Negative); Ketones,Urine Negative (Negative); Leukocyte Esterase,Urine Negative (Negative); Nitrite,Urine Negative (Negative); Protein,Urine Trace (Neg - Trace); RBC,Urine 1 /hpf (0-3); Specific Gravity,Urine 1.031 (1.001-1.035); Squamous Epithelial Cell,Urine < 1 /hpf (0-5); WBC,Urine 4 /hpf (0-5)
[2024-12-11 20:20] VITALS: BP 101/65; PULSE 98; RESP 18; TEMP 37.1; O2SAT 99
[2024-12-12 00:02] VITALS: BP 109/76; PULSE 93; RESP 19; TEMP 36.9; O2SAT 100
[2024-12-12 06:36] VITALS: BP 108/68; PULSE 78; RESP 15; TEMP 37.1; O2SAT 99
--- NOTE | 2024-12-12 08:06 | EDNOTE_ITS ---
ED General RME/HPI General Chief complaint: Weakness Stated complaint: SENT BY PCP FOR WEAKNESS, JAUNDICE X 4 DAYS Time Seen by Provider: 12/11/24 16:56 Arrival date/time: 12/11/24 16:49 RME / HPI RME / HPI narrative: 12/11/24 16:49 59-year-old male with a history of type 2 diabetes presents to the emergency room with a chief complaint of generalized weakness and jaundice. Patient states he was sent over by his primary care provider due to his jaundice and his history of hyponatremia. I have greeted and performed a focused initial assessment of this patient. A comprehensive ED assessment and evaluation of the patient, analysis of all test results, and completion of the medical decision making process will be conducted by additional ED providers. DR. DONOVAN MAIN ED EVALUATION: Patient has been in the ER for 15 hours prior to my evaluation. 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 He reports that he consulted his PCP at [facility] yesterday for complaints of global weakness and was advised to seek further evaluation in the ED due to suspected jaundice. While in the ED patient reports he has noticed no change in skin color. Although does report generalized weakness for approximately 2 months, with increasing debility to the point of being mostly bedbound. He is only able to get up to use the restroom and requires assistance from either a walker or his . He reports bilateral leg weakness and knee pain for the past 4 months, which has contributed to his limited mobility. Additionally, he has noted a 15lbs weight loss over the past 6 months. He denies any associated symptoms, including fevers, chills, chest pain, cough, shortness of breath, abdominal pain, nausea, vomiting, diarrhea, or changes in urinary or bowel function. Related Data Previous Rx's ?Medication ?Instructions ?Recorded megestrol 800 mg/20 mL (20 mL) 800 mg (20 mL) PO QDAY 30 days 09/30/24 oral suspension #600 mL glucagon 3 mg/actuation nasal 3 mg intranasal QDAY PRN 10/23/24 spray (Baqsimi) hypoglycemia #2 ea insulin glargine 100 unit/mL (3 10 unit (0.1 mL) subcu t QPM #15 mL 10/23/24 mL) subcutaneous pen (Lantus Solostar U-100 Insulin) meclizine 25 mg tablet 25 mg PO TID PRN Dizziness # 30 tabs 10/23/24 sodium chloride 1,000 mg soluble 1,000 mg PO BID #60 t abs 10/27/24 tablet Allergies Allergy/AdvReac Type Severity Reaction Status Date / Time No Known Drug Allergies Allergy Verified 12/11/24 16:55 Review of Systems Review of Systems Narrative Review of Systems: Constitutional: SEE HPI Eyes: DENIES; Loss of vision Head/Ear/Nose: DENIES; Loss of hearing Throat: DENIES; Dysphagia Cardiovascular: DENIES; Chest pain, dyspnea or syncope Respiratory: DENIES; Shortness of breath Gastrointestinal: DENIES; Rectal bleeding or melena. Genitourinary: DENIES; Dysuria (painful or difficult urination) Musculoskeletal: DENIES; Arthralgia (pain in a joint),; Skin: SEE HPI. DENIES; Rash Neurological: SEE HPI Psychiatric: DENIES; recent major life stressor, emotional problem, illicit drug use or abuse Endocrinology: DENIES; Weight change Hematologic/Lymphatic: DENIES; Abnormal bruising Allergic/Immunologic: DENIES; Urticaria (hives) Past Medical History Past Medical History CARDIAC: Positive Hypertension; Negative Cardiac Disorders, Hypercholesterolemia or Congestive Heart Failure RESPIRATORY: Negative Chronic Obstructive Pulmonary Disease (COPD) or Asthma GENITOURINARY: Negative Renal Disease ENDOCRINE: Positive Diabetes Mellitus Type 2; Negative Diabetes Mellitus Type 1 HEMATOLOGIC: Negative Sickle Cell Disease Social History SMOKING STATUS: Never smoker SECOND HAND EXPOSURE: No Course Quality Measures none Orders Category Date Time Status gall bladder Stat Exams 12/11/24 17:26 Completed CBC Stat Lab 12/11/24 17:40 Completed CK [Creatine Kinase] Stat Lab 12/12/24 08:40 Completed CMP [Comprehensive Metabolic Panel] Stat Lab 12/11/24 17:40 Completed CRP [C-Reactive Protein] Stat Lab 12/12/24 08:40 Completed Copper* Stat Lab 12/12/24 09:09 Received ESR [Sed Rate (ESR)] Stat Lab 12/12/24 08:40 Completed Lipase Stat Lab 12/11/24 17:40 Completed Protein electrophoresis,serum* Stat Lab 12/12/24 08:40 Received UA [Urinalysis] Stat Lab 12/11/24 18:31 Completed Urine Culture Stat Lab 12/11/24 18:31 Received Vitamin B12 Stat Lab 12/12/24 08:40 Completed Vitamin D 25 Hydroxy Total Stat Lab 12/12/24 08:40 Completed Vital Signs Vital signs: Vital Signs Temperature 98.5 F 12/11/24 17:21 Pulse Rate 93 12/11/24 17:21 Respiratory Rate 18 12/11/24 17:21 Blood Pressure 105/75 12/11/24 17:21 Pulse Oximetry (%) 100 12/11/24 17:21 Oxygen Delivery Method Room Air 12/11/24 17:21 Pulse ox is 100% on room air which is adequate. 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, on anticoagulation therapy, diabetes mellitus with diabetic neuropathy, hyperthyroidism, scoliosis, and chronic musculoskeletal pain How is presenting disease/condition affected by chronic disease/condition?: e xacerbated by Evaluation data The following diagnostics were reviewed and interpreted by me:: lab results and radiology exam(s) Lab and/or radiology exams considered but not ordered:: None Interpretation Summary: Ordering Physician: Ben Antonio Date of Service: 12/11/24 Procedure(s): US gall bladder Accession Number(s): [id number] cc: Ben Antonio; Pravin Bennett MD; NO PRIMARY/FAMILY,PHYSICIAN~ Examination: Abdomen sonogram, Limited Date and time of exam: December 11, 2024 2035 hrs. Indications: Jaundice beginning 3 days ago with body weakness Technique: Real-time da silva scale transabdominal sonographic images of the upper abdomen obtained. Findings: Negative for gallstones Gallbladder wall 0.39 cm no edema Common bile duct 0.4 cm Pancreatic head 2.1 cm Liver 13.4 cm no liver lesions Normal hepatopedal portal venous flow Patent IVC Impression: Negative for gallstones Gallbladder wall is thickened 0.39 cm,. Clinical correlation advised Consider HIDA scan follow-up or MRCP to exclude cholecystitis, if clinically warranted Dictated By: Pravin Bennett MD Signed By: <Electronically signed by Pravin Bennett MD in OV> 12/11/242118 Medications Medications considered but not ordered:: None Medication administrations:: See above Consultations Consultation(s) initiated? (list below): Yes Consultation #1 (Physician, Specialty, Details): I spoke with neurologist Dr. Vance. Discussed patients PMHx, HPI, ED course, exam findings, labs, and radiology results. She agrees to consult. Time: 08:35 Consultation #2 (Physician, Specialty, Details): I spoke with resident Dr. Vance working with Dr. Brown. Discussed patients PMHx, HPI, ED course, exam findings, labs, and radiology results. Will come down and evaluate the patient. Time: 08:45 Consultation #3 (Physician, Specialty, Details): 1025: I received a call back from resident Dr. Miller working with Dr. Brown. Reports at this time there is no indication for admission. Add the patient was previously admitted here with similar symptoms. 1032: I spoke with social insurance administrator Diagnosis Differential Diagnosis ED Complaint MDM: Any neurological condition that can cause bilateral thigh atrophy. Which i Most likely diagnosis given after review of the tests above:: Unable to walk due to some chronic bilateral thigh atrophy etiology uncertain at this time Admission Indicated Admission indicated?: not indicated Explain why admission is indicated or not indicated:: Admission Request Was there a request for admission?: No Disposition Plan Disposition Plan: Discharge Discharge Attestation Discharge Attestation: The patient and all family members were given an opportunity to ask questions and understood the discharge instructions. Discharge instructions specifically effects, indications for sooner follow up or return to the emergency department, and the expected course of current diagnosis. Patient condition: Stable Medical Decision Making MDM Narrative MDM Narrative: Patient 51-year-old who is somewhat debilitated who is very atrophied in his lower extremities especially his thighs and abdomen and this has been going on for 3 to 5 months. Initially spoke with Dr. Vance who consulted recently we added on additional orders to workup his weakness including B12 CK electrophoresis vitamin D level and copper. Dr. Vance originally thought we could admit this patient but then the residents saw the patient reconsulted her and they felt they can manage this as an outpatient. Accompanied with the came and states that they are able to care for him at home. The etiology of this patient's lower extremity atrophy and weakness is unclear there is a MRI of the lumbar spine which reveals impingement of the nerves at the L5-S1 but that would not explain the thigh atrophy. There is also concerns his diabetes is causing a atrophic etiology to the wasting of his lower extremities. We learned later patient was sent to because the primary care doctor felt that he was jaundiced but the labs say otherwise. Medical workup today reveals a white count of 5.3 hemoglobin of 12.9 sodium 130 potassium 4.4 chloride 98 CO2 23.3 anion gap is 9 BUN is 10 creatinine 0.6. Glucose 235 osmolality slightly low at 267. Total bilirubin is 1.3 AST 39 ALT is 53 CK came back at 254 slightly elevated. CRP came back negative UA came back negative. Further workup for atrophic thigh muscles and inability to walk as directed by Dr. Vance. environmental services manager talk to the and she wants to go home and follow-up with her regular doctor. Also the resident set up an appointment with the clinic across the street for follow-up tomorrow. We tried to explain that the follow-up with all the workup with a neurologist would be more continuity with clinic across but evidently the wants to continue with her regular doctor. Differential Diagnosis Differential Diagnosis: Any neurological condition that can cause bilateral thigh atrophy. Which i Lab Data 12/11/24 17:40 12/11/24 17:40 Labs: Lab Results 12/11/24 12/11/24 12/12/24 Range/Units 17:40 18:31 08:40 WBC 5.3 (3.8-10.6) Thou/mm3 RBC 4.15 L (4.50-5.90) Miln/mm3 Hgb 12.9 L (13.5-16.0) g/dL Hct 35.0 L (41.0-53.0) % MCV 84 (80-100) fL MCH 31.1 (25.0-35.0) pg MCHC 36.9 (31.0-37.0) g/dl RDW Std Deviation 41.5 (35.1-43.9) fL Plt Count 300 D (140-440) Thou/mm3 Neut % (Auto) 66 (37-80) % Lymph % (Auto) 25 (10-50) % [place] % (Auto) 6 (0-12) % Eos % (Auto) 2 (0-10) % Baso % (Auto) 1 (0-2.5) % Neut # (Auto) 3.5 (1.8-7.7) Thou/mm3 Lymph # (Auto) 1.3 (1.0-4.8) Thou/mm3 [place] # (Auto) 0.3 (0.0-0.8) Thou/mm3 Eos # (Auto) 0.1 (0.0-0.5) Thou/mm3 Baso # (Auto) 0.0 (0.0-0.2) Thou/mm3 Immature Gran # (Auto) 0.01 H (0.00-0.00) Thou/mm3 Absolute Nucleated RBC 0.00 (0.00-0.00) Thou/mm3 Immature Gran % 0 (0-0) % Nucleated RBC % 0 (0) /100 WBC ESR 1 (0-20) mm/hr Sodium 130 L (136-145) mMol/L Potassium 4.4 (3.4-5.1) mMol/L Chloride 98 (98-107) mMol/L Carbon Dioxide 23.3 (20.0-31.0) mMol/L Anion Gap 9 (7-16) BUN 10 (9-23) mg/dL Creatinine 0.6 (0.6-1.3) mg/dL Estim Creat Clear Calc Not Performed. eGFR > 60 (60 - ) See Note BUN/Creatinine Ratio 17 (12-20) Ratio Glucose 235 H (74-106) mg/dL Calculated Osmolality 267 L (275-295) Calcium 8.7 (8.3-10.6) mg/dL Corrected Calcium 8.9 (8.5-10.1) mg/dL Total Bilirubin 1.3 H (0.3-1.2) mg/dL AST 39 H (0-34) U/L ALT 53 H (10-49) U/L Alkaline Phosphatase 53 (46-116) U/L Total Creatine Kinase 254 H (34-171) U/L C-Reactive Prot, Quant < 0.5 (0.0-0.9) mg/dL Total Protein 6.3 (5.7-8.2) gm/dL Albumin 3.8 (3.5-5.0) gm/dL Globulin 2.5 (2.3-3.5) gm/dL Albumin/Globulin Ratio 1.5 (1.2-2.2) Lipase 26 (12-53) U/L Vitamin B12 600 (211-911) pg/mL 25-OH Vitamin D Total 35.7 (7.3-40.2) ng/mL Ur Collection Type Clean Catch Urine Color Yellow (Lt Yel-Yel) Urine Clarity Clear (Clear/Hazy) Urine pH 6.0 (5.0-7.0) Ur Specific [place] 1.031 (1.001-1.035) Urine Protein Trace (Neg - Trace) Urine Glucose (UA) 4+ A (Negative) Urine Ketones Negative (Negative) Urine Blood Negative (Negative) Urine Nitrite Negative (Negative) Urine Bilirubin Negative (Negative) Urine Urobilinogen (Auto) 3.0 (0.0-1.0) mg/dL Ur Leukocyte Esterase Negative (Negative) Urine RBC 1 (0-3) /hpf Urine WBC 4 (0-5) /hpf Ur Squamous Epith Cells < 1 (0-5) /hpf Urine Bacteria None (None) Discharge Plan Plan Patient Disposition: HOME (Self Care) Prescriptions/Referrals Prescriptions/Med Rec: No Action megestrol 800 mg/20 mL (20 mL) suspension 800 mg PO QDAY 30 Days Qty: 600 1RF meclizine 25 mg Tablet 25 mg PO TID PRN (Reason: Dizziness) Qty: 30 0RF insulin glargine [Lantus Solostar U-100 Insulin] 100 unit/mL (3 mL) insulin pen 10 unit subcut QPM Qty: 15 0RF Baqsimi 3 mg/actuation spray,non-aerosol 3 mg intranasal QDAY PRN (Reason: hypoglycemia) Qty: 2 0RF sodium chloride 1,000 mg tablet,soluble 1,000 mg PO BID Qty: 60 0RF Referrals: [facility] [Other] - 12/13/24 10:00 am Problem List Clinical Impression: Unable to ambulate, Atrophy of muscle of lower leg, Diabetes Patient/Caregiver Discharge Instructions Additional Instructions: There is no evidence of jaundice as your bilirubin was normal today. Your lower leg weakness and your inability to walk appears to be a chronic problem for months. Your neurologist and doctors in the hospital are quite familiar with this and ordered further testing and asked her to follow-up with the clinic across the street as on your discharge instructions. If you follow-up with your regular doctor let them know that there is further workup with Dr. Vance Please return if getting worse in any way. Print Language: South African Stand Alone Forms: Debra Award Info., Patient Portal Info Letter
[2024-12-12 09:16] LABS: Sed Rate (ESR) 1 mm/hr (0-20)
[2024-12-12 09:27] LABS: C-Reactive Protein < 0.5 mg/dL (0.0-0.9); Creatine Kinase 254 U/L (34-171)
[2024-12-12 09:28] LABS: Vitamin D 25 Hydroxy Total 35.7 ng/mL (7.3-40.2)
[2024-12-12 09:34] VITALS: BP 127/82; PULSE 77; RESP 20; O2SAT 100
[2024-12-12 09:48] LABS: Vitamin B12 600 pg/mL (211-911)
--- NOTE | 2024-12-12 12:12 | PC.SS ---
SS met with patient and patient's in regards to discharge plan, she reports patient followed up with PCP yesterday and recommended for patient to be seen in the ED for Jaundice. SS informed patient' if she is able to care for patient and she reported she has been caring for patient and only brought patient in to see if labs were okay. SS followed up with DR. Paz and he informed SS that patient will not be admitted. SS will stand by for further needs.
[2024-12-12 13:08] VITALS: BP 138/81; PULSE 80; RESP 20; TEMP 36.6; O2SAT 98
--- NOTE | 2024-12-12 13:09 | PC.NURSE ---
PATIENT RESTING WITH NO COMPLAINTS OF PAIN. DOPE SPRAYER AT BEDSIDE TO EVALUATE PLAN OF CARE.
--- NOTE | 2024-12-12 16:21 | EVENTNT_ITS ---
Documentation for date of: 12/12/24 Event Note Event Note: Hospitalist team was consulted for potential admit, who was a 59 y/o M with PMHx significant for type 2 diabetes and cerebral artery stenosis presenting from his PCP because he was told he seemed jaundiced. Hospitalist team was consulted for potential admission for lower extremity weakness and atrophy. On exam patient did not appear jaundiced, patient T. bili 1.3, within patient's normal levels. Patient was seen and examined by hospitalist team, noted to have bilateral lower extremity weakness with right leg muscular atrophy, this is chronic for patient and he has been seen by neurology outpatient for these issues. It was determined that there is no benefit to admission as patient required outpatient workup and treatment, specifically an EMG which cannot be done here. It was recommended patient follow-up with at the [facility] tomorrow, appointment was scheduled at 10 AM. Also recommended ED seek placement for patient in acute rehab. Plan of care discussed with senior resident Dr Vance PGY?[address] Brown. Rodrick Mueller MD PGY?1
[2024-12-17 13:50] LABS: Albumin 3.8 g/dL (3.8-4.8); Alpha-1-Globulin 0.2 g/dL (0.2-0.3); Alpha-2-Globulin 0.4 g/dL (0.5-0.9); Beta-1-Globulin 0.4 g/dL (0.4-0.6); Beta-2-globulin 0.3 g/dL (0.2-0.5)
[2024-12-18 07:00] LABS: Protein, total, serum 6.1 g/dL (6.1-8.1)
== END 2024-12-12 15:15 | disposition home or self-care (01) ==
PROVIDERS: Nurse Practitioner Family; Emergency Provider Emergency Medicine
DX: M62.561 Muscle wasting and atrophy, not elsewhere classified, right lower leg (principal); E11.40 Type 2 diabetes mellitus with diabetic neuropathy, unspecified; K82.8 Other specified diseases of gallbladder; R17 Unspecified jaundice; Z79.4 Long term (current) use of insulin
CPT/HCPCS: 36415; 76705; 80053; 81001; 82306; 82525; 82550; 82607; 83690; 84155; 84165; 85025; 85652; 86140; 87086; 99284

== ENCOUNTER 2024-12-13 10:14 | Outpatient (AMB) | payer MEDICAID, SELFPAY ==
--- NOTE | 2024-12-13 10:16 | ACNOTE_ITS ---
Allergies/Meds Allergies & Medications Allergies No Known Drug Allergies Allergy (Verified 12/11/24 16:55) MA Intake Visit Data Collection New Patient or Established: Established Patient (seen at [facility] within 3 years) Seen by Clinical Staff ONLY (RN/MA): Yes Reason for Visit:: patient wasnot seen or vitaled PCP or OBGYN visit in last 3 months: No Smoking Status Smoking Status: Never smoker Immunization / Flu Flu Vaccine in the Last 12 Months: No Flu Vaccine Exclusion Criteria: Refused by Patient Past Medical History Past Medical History CARDIAC: Positive Hypertension; Negative Cardiac Disorders, Hypercholesterolemia or Congestive Heart Failure RESPIRATORY: Negative Chronic Obstructive Pulmonary Disease (COPD) or Asthma GENITOURINARY: Negative Renal Disease ENDOCRINE: Positive Diabetes Mellitus Type 2; Negative Diabetes Mellitus Type 1 HEMATOLOGIC: Negative Sickle Cell Disease Social History SMOKING STATUS: Smoking status: Never smoker SECOND HAND EXPOSURE: second hand exposure: No ALCOHOL: Alcohol Intake: Never HOUSING: Housing: House LIVES WITH: Lives With: Family Patient Portal Questionaires Social History Living Situation History Housing: House Tobacco History Smoking Status: Never smoker Second Hand Smoke Exposure: No Alcohol History Alcohol Intake: Never Review of Systems Report any current symptoms Only answer those that you have currently: Past Medical History Past Medical History Have you ever been diagnosed with any of the following: Cardiology Problems Hypercholesterolemia: No Congestive Heart Failure: No Hypertension: Yes Respiratory Problems Chronic Obstructive Pulmonary Disease (COPD): No Asthma: No Genital/Urinary Problems Renal Disease: No Endocrine Problems Diabetes Mellitus Type 1: No Diabetes Mellitus Type 2: Yes Blood Problems Sickle Cell Disease: No History of Present Illness HPI Narrative Patient not seen or examined in office. [facility] and notified staff that he had a primary care provider and would not like to be seen or treated at the [facility]. Review of Systems Review of Systems Narrative Review of Systems: No seen or examined in office. Objective/Exam Narrative Physical exam: None, not seen in office Assessment & Plan Diagnosis / Problem List (1) History of diabetes mellitus: Status: Acute Assessment & Plan: Not seen or examined in clinic Plan None, patient not seen or examined in office. Additional Plan - The patient's plan was discussed with attending Dr. Barbara Corona MD PGY1 Internal Medicine
== END 2024-12-13 10:21 | disposition home or self-care (01) ==
LOC: HODAHC 10:14
PROVIDERS: Supervising Provider Internal Medicine
DX: Z53.8 Procedure and treatment not carried out for other reasons (principal)
CPT/HCPCS: 99213; G0463

== ENCOUNTER → 2024-12-25 | Outpatient (CLI) | payer MEDICAID, SELFPAY ==
--- NOTE | 2024-12-25 11:31 | XR_ITS ---
Examination: Right knee 2 views Technique one AP lateral right knee 2 views Exam date and time: December 25, 2024 1233 hours INDICATIONS: Right knee pain beginning 3 months ago. FINDINGS: Moderate to advanced tricompartment osteoarthritis, most severe patellofemoral joint Small knee effusion IMPRESSION: Moderate to advanced tricompartment osteoarthritis
== END | disposition home or self-care (01) ==
LOC: CDIM 11:16
PROVIDERS: PCP Physician Assistant; Referring Provider Physician Assistant; Visit Provider Physician Assistant
DX: M17.11 Unilateral primary osteoarthritis, right knee (principal)
CPT/HCPCS: 73560

== ENCOUNTER → 2025-01-24 | Outpatient (CLI) | payer MEDICAID, SELFPAY ==
--- NOTE | 2025-01-24 14:30 | XR_ITS ---
Examination: Thyroid sonography complete TECHNIQUE: Grayscale sonographic images thyroid lobes Exam date and time: January 24, 2025 1506 hours INDICATIONS: Abnormal thyroid function tests on laboratory examination 3 weeks ago FINDINGS: Right thyroid 5.1 cm Midpole nodule 11 x 10 x 4 mm Left thyroid 4.4 cm No thyroid nodules IMPRESSION: Midpole vascular thyroid nodule 11 x 10 x 4 mm, consider ultrasound-guided fine needle aspiration of this nodule
== END | disposition home or self-care (01) ==
LOC: CDIM 14:31
PROVIDERS: Referring Provider Physician Assistant; Visit Provider Physician Assistant
DX: E04.1 Nontoxic single thyroid nodule (principal)
CPT/HCPCS: 76536

== ENCOUNTER 2025-02-07 11:50 | Day surgery (SDC) | payer MEDICAID, SELFPAY ==
[2025-02-06 14:56] VITALS: BMI 22.6
[2025-02-07] VITALS (17 sets, daily range): BP systolic 110–204; BP diastolic 74–115; PULSE 61–96; RESP 17–20; TEMP 36.2–36.9; O2SAT 100; BMI 21.9
--- NOTE | 2025-02-07 13:01 | EKG_ITS ---
[facility]3] Test Date: 2025-02-07 Pat Name: TITI FOX Department: Room: - Gender: Male Public Relations Studies Director: CARLITA : 1965 Requested By: Robert Molina Order Number: [id number] Reading MD: Robert Molina Measurements Intervals Juda Rate: 71 P: 68 DC: 121 QRS: 80 QRSD: 97 T: 73 QT: 413 QTc: 450 Interpretive Statements SINUS RHYTHM No previous ECG available for comparison /store/S0/[id number]/ecg/[id number].pdf
[2025-02-07 14:12] LABS: Alanine Aminotransferase 44 U/L (10-49); Albumin, Serum 3.7 gm/dL (3.5-5.0); Albumin/Globulin Ratio 1.5 (1.2-2.2); Alkaline Phosphatase 53 U/L (46-116); Anion Gap 9 (7-16); Aspartate Amino Transferase 30 U/L (0-34); BUN/Creatinine Ratio 10 Ratio (12-20); Bilirubin,Total 2.3 mg/dL (0.3-1.2); Blood Urea Nitrogen 6 mg/dL (9-23); Calcium 8.4 mg/dL (8.3-10.6); Calcium (Corrected) 8.6 mg/dL (8.5-10.1); Carbon Dioxide 25.7 mMol/L (20.0-31.0); Chloride 98 mMol/L (98-107); Creatinine (Component) 0.6 mg/dL (0.6-1.3); Estimated Creatinine Clearance 90.5 mL/min (>60); Globulin 2.5 gm/dL (2.3-3.5); Glucose 161 mg/dL (74-106); Osmolality,Calculated 266 (275-295); Potassium 3.4 mMol/L (3.4-5.1); Sodium 133 mMol/L (136-145); Total Protein 6.2 gm/dL (5.7-8.2); eGFR > 60 See Note
[2025-02-07] MEDS: RINGERS LACTATED 1000 ML 1,000 ML 125 ML IV (14:48)
[2025-02-07] MEDS: SIMETHICONE 40 MG/0.6 ML ORAL SYRINGE PO (15:00)
--- NOTE | 2025-02-07 15:30 | SUR.PHASEII ---
3833 Patient arrived to recovery resting comfortably in [facility], sleeping and able to arouse with verbal prompting, then drifts back to sleep, on oxygen 4L via oxy mask, breathing unlabored, vital signs stable, denies pain nausea, report received from Marlene PEACOCK and Dr. Molina/Pravin
--- NOTE | 2025-02-07 16:18 | SUR.PHASEII ---
[address] Molina regarding patient blood pressure being elevated, orders received to give standing order in EMR of Hydralazine 5mg IVP and repeat in 20min if needed
[2025-02-07] MEDS: hydrALAZINE INJ 20 MG/ML VIAL 5 MG IV ×2 (16:25→16:50)
--- NOTE | 2025-02-07 16:45 | SUR.PHASEII ---
[address] Molina regarding patients blood pressure continued to be elevated, order received to give second dose of Hydralazine 5mg IVP, will administer medication to patient per anesthesia order
--- NOTE | 2025-02-07 17:04 | SUR.PHASEII ---
Dr. Molina at beside assessing patient, no new order at this time, blood pressure is 178/107, will continue to monitor patient
--- NOTE | 2025-02-07 17:15 | SUR.PHASEII ---
1715 Dr. Molina at bedside talking with this report writer, patient and his , all questions answered from , Dr. Molina stated patient okay to proceed with discharge
--- NOTE | 2025-02-07 17:26 | ESPR_ITS ---
Documentation for date of: 02/07/25 ANESTHESIA NOTE: Patient had MAC for EGD colonoscopy earlier today. He did well intra-op and has been in PACU post op. He has been doing well in PACU, calm throughout, alert, NAD, VSS except his BP has been elevated in PACU, SBP 180-200s, DBP 100-110s, HR 80-90s sinus, O2 sat 100% room air. He denied chest pain and headache and moves all extremities and non focal. His BP was treated with two doses of 5 mg IV Hydralazine per my orders and it is improving and trending down to SBP 170s to now 150s and DBP 80s. His was concerned about his elevated BP and nurse and I discussed his BP with them and the improvement after treatment with cash management coordinator and at this time, his BP is improved as mentioned, other vitals stable, he is alert and asymptomatic, has voided urine twice, and they are agreeing with the discharge with instructions given for follow up. Robert Molina MD Anesthesia Progress Note Progress Note Most recent Vital Signs: Last Vital Signs Temp 98.5 F 02/07/25 16:00 Pulse 95 02/07/25 16:55 Resp 20 02/07/25 16:55 BP 174/100 H 02/07/25 16:55 Pulse Ox 100 02/07/25 16:55 O2 Flow Rate 2 02/07/25 15:40
--- NOTE | 2025-02-07 17:34 | SUR.PHASEII ---
1734 Patient meets discharge criteria from recovery, awake and alert, breathing unlabored, vital signs stable, denies pain and nausea, drinking fluids; tolerating well, assisted with dressing into his clothing by his , discharge instructions given with the assistance of the telephone human resources team member to patient and his , signed discharge instructions. Patient given all his belongings prior to discharge, transported via wheelchair and left in a private vehicle.
== END 2025-02-07 17:34 | disposition home or self-care (01) ==
PROVIDERS: Anesthesiology; PCP Physician Assistant; Referring Provider Internal Medicine Gastroenterology; Visit Provider Internal Medicine Gastroenterology
PROC: 0DJD8ZZ Inspection of Lower Intestinal Tract, Via Natural or Artificial Opening Endoscopic (ICD-10-PCS; CPT 45378; principal; 2025-02-07 13:30)
PROC: (CPT 43239; 2025-02-07 13:30)
DX: K52.9 Noninfective gastroenteritis and colitis, unspecified (principal); K64.8 Other hemorrhoids; Z01.810 Encounter for preprocedural cardiovascular examination; B96.81 Helicobacter pylori [H. pylori] as the cause of diseases classified elsewhere; K29.50 Unspecified chronic gastritis without bleeding; K31.89 Other diseases of stomach and duodenum; K29.70 Gastritis, unspecified, without bleeding; K44.9 Diaphragmatic hernia without obstruction or gangrene
CPT/HCPCS: 45380; 36415; 80053; 93005; A4649; J0360; J7120; A9270

== ENCOUNTER 2025-05-08 08:30 | Outpatient (RCR) | payer MEDICAID, SELFPAY ==
--- NOTE | 2025-05-02 10:05 | PT.OIERPT ---
PT OP Initial Eval Patient Information Outpatient Physical Therapy Treatment Date: 05/02/25 Visit Reasons: RT knee pain Medical Diagnosis: M17.11 Treatment Dx #1: Right Knee Pain Start of Care: 05/02/25 Date of Onset: Jul 2024 Smoking Status Smoking Status: Never smoker Initial Assessment Subjective: Pt is a 59 y/o male reports of chronic right knee pain (8/10) since Jul 2024. Pt's most recent xray showed moderate to advanced knee OA tricompartment. Pt's surgeon wants patient to try physical therapy. Pt has been using a walker due to increasing knee pain. Pt has limitation with standing, walking, balance, chores, self care, balance, squatting, and recreational activities. Objective: Right Knee AROM: all motions are WFL with end range pain Right Knee MMTs: grossly 4-/5 Right Hip MMTs: grossly 3+/5 Knee Cap Mobility: hypomobile in all plane Special Test (+) ant knee compression test Assessment: Pt demonstrate right knee pain consistent with xray findings leading to difficulty with ADLs. Pt will attempt physical therapy if pain persist Pt will be refer back to MD for further consultation. Short Term and Fpc Goals 1) Increase right knee AROM WNL in 6 wks to be able to perform chores 2) Decrease knee pain to 2/10 in 6 wks to be able to stand more than 30 mins 3) Increase right knee MMTs grossly to 4/5 in 6 wks to be able to perform squatting activities 4) Increase right hip MMTs grossly to 4-/5 in 6 wks to be able to walk more than 30 mins 5) Indep with HEP Treatment Plan 1) Manual Therapy 2) Therapeutic Activities 3) Therapeutic Exercises 4) Modalities (ice, heat) 5) Balance Training Frequency and Duration: 2 x wk for 6 wks Certification Dates: 05/02/25 to 08/02/25 Procedure Charges OP PT Eval Mod Complex 30 minutes: Yes
--- NOTE | 2025-05-04 09:02 | PTNOTE_ITS ---
PT Outpatient Daily Note OP Daily Note Outpatient Physical Therapy Treatment Date: 05/04/25 Visit Reasons: RT knee pain Subjective: Pt's knee is still stiff and painful. No change in overall symptoms since last session Objective: Please see flow chart for list of ther ex performed Assessment: difficulty with Hs stretch due to tightness, however, able to complete i nstructed reps Plan: Continue with PT Length of Time (minutes) of Treatment: 30 Minutes Procedure Charges Therapeutic Exercise 30 minutes: Yes
--- NOTE | 2025-05-08 08:53 | PT.ODAYNRPT ---
PT Outpatient Daily Note OP Daily Note Outpatient Physical Therapy Treatment Date: 05/08/25 Visit Reasons: RT knee pain Subjective: No new complaints or concerns. Objective: Please see flow sheet for ther ex list. Assessment: Pt tolerated interventions well, requires short rest break and poor tolerance due to secondary LBP. Plan: Continue with pOC. Length of Time (minutes) of Treatment: 30 Minutes Procedure Charges Therapeutic Exercise 30 minutes: Yes
== END 2025-05-27 23:59 | disposition home or self-care (01) ==
LOC: CPTX 08:30
PROVIDERS: PCP Orthopaedic Surgery; Referring Provider Orthopaedic Surgery; Visit Provider Orthopaedic Surgery
DX: M25.561 Pain in right knee (principal); R26.2 Difficulty in walking, not elsewhere classified; R26.89 Other abnormalities of gait and mobility; G89.29 Other chronic pain; M17.11 Unilateral primary osteoarthritis, right knee
CPT/HCPCS: 97110; 97162

== ENCOUNTER → 2025-08-10 | Outpatient (CLI) | payer MEDICAID, SELFPAY ==
--- NOTE | 2025-08-10 09:17 | XR_ITS ---
EXAMINATION: Lumbar spine 7 views TECHNIQUE: AP, lateral, standing lateral flexion standing lateral extension,: Lower lumbar spine, RPO LPO 7 views Date and time: August 10, 2025, 10 0 1:00 a.m. INDICATIONS: Low back pain 1 year. FINDINGS: Mild osteopenia. Moderate lumbar spondylosis. Grade 2 spondylolisthesis L5 on S1 with advanced degenerative disc disease at this level Significant diffuse facet arthropathy IMPRESSION: Grade 2 spondylolisthesis L5 on S1 with advanced degenerative disc disease at this level
== END | disposition home or self-care (01) ==
LOC: CDIM 09:13
PROVIDERS: Referring Provider Specialist; Visit Provider Specialist
DX: M51.370 Other intervertebral disc degeneration, lumbosacral region with discogenic back pain only (principal); M43.17 Spondylolisthesis, lumbosacral region
CPT/HCPCS: 72114